=== PATIENT | male | born 1935 | race Caucasian/White ===

== ENCOUNTER → 2017-12-09 13:59 | Outpatient (CLI) | payer MEDICARE, OTHER, SELFPAY ==
[2017-12-09 15:53] LABS: Absolute Lymphocyte Count 1.24 X10^3/ul (0.83-4.51); Basophil# 0.02 X10^3/uL; Basophil% 0.4 % (0-1); Eosinophil# 0.08 X10^3/uL; Eosinophils% 1.6 % (0-5); Hematocrit 41.6 % (40-54); Hemoglobin 14.1 g/dl (13.0-16.5); Lymphocyte # 1.24 X10^3/ul (4.0); Lymphocyte % 24.8 % (19-41); Mean Corp Hgb Conc 33.9 g/gl (32-36); Mean Corpuscular Hgb 30.8 pg (27.0-32.0); Mean Corpuscular Volume 90.8 fL (80-94); Mean Platelet Vol. 10.5 fl (6.2-12.0); Monocyte# 0.65 X10^3/uL; Platelet Count 208 K/mm3 (150-450); RBC Distribution Width SD 42.8 fl (35.1-43.9); Red Blood Count 4.58 M/mm3 (4.6-6.2)
[2017-12-09 16:06] LABS: POSITIVE COUNT NO; POSITIVE DIFFERENTIAL NO; POSITIVE MORPHOLOGY NO
[2017-12-09 16:38] LABS: AST(SGOT) 18 U/L (15-37); Alanine Aminotransfer ALT/SGPT 28 U/L (16-61); Albumin, Serum 3.8 g/dL (3.2-5.0); Alkaline Phosphatase 68 U/L (45-117); Anion Gap 7 (5-15); BUN 20 mg/dL (7-18); BUN/Creat Ratio 15.6 RATIO (10-20); Bilirubin, Direct 0.14 mg/dL (0.00-0.30); Calcium,Total 8.7 mg/dL (8.5-10.1); Chloride 107 mmol/L (98-107); Cholesterol 123 mg/dL (200); Creatinine, Serum 1.28 mg/dL (0.70-1.30); EST Glomerular Filtration Rate 57 mL/min (>60); Est Glom Filt Rate - Afr Amer 69 mL/min (>60); Globulin 3.2 g/dL (2.2-4.2); Glucose 136 mg/dL (74-106); High Density Lipoprotein 40 mg/dL; Potassium 3.7 mmol/L (3.5-5.1); Sodium Level 139 mmol/L (136-145); Thyroid Stim Hormone (TSH) 1.31 uIU/mL (0.358-3.74); Triglycerides 142 mg/dL; Very Low Density Lipoprotein 28 mg/dL (5-40)
== END ==
PROVIDERS: Family Provider Family Medicine; PCP Family Medicine; Visit Provider Family Medicine
DX: I10 Essential (primary) hypertension (principal); E11.9 Type 2 diabetes mellitus without complications; E78.5 Hyperlipidemia, unspecified; E78.00 Pure hypercholesterolemia, unspecified
CPT/HCPCS: 36415; 80048; 80061; 80076; 84443; 85025

== ENCOUNTER → 2017-12-27 13:41 | Outpatient (CLI) | payer MEDICARE, OTHER, SELFPAY ==
--- NOTE | 2017-12-27 13:44 | CDU_ITS ---
Reason For Study: bruit Rt. Velocities/BP Lt. Velocities/BP Prox CCA 73.3/13.5 cm/sec. Prox CCA 108/17.0 cm/sec. Mid CCA 119/15.7 cm/sec. Mid CCA 126/18.1 cm/sec. Dist CCA 129/20.4 cm/sec. Dist CCA 112/18.1 cm/sec. Prox ICA 272/66.0 cm/sec. Prox ICA 93.5/23.6 cm/sec. Mid ICA 220/51.9 cm/sec. Mid ICA 118/25.1 cm/sec. Dist ICA 195/44.0 cm/sec. Dist ICA 121/26.4 cm/sec. Rt. ICA/CCA = 2.2. Lt. ICA/CCA = 1.0. Prox ECA 133/9.43 cm/sec. Prox ECA 166/13.8 cm/sec. Rt. Vert. 32.6/10.6 cm/sec. Lt. Vert. 53.9/12.3 cm/sec. Right Extracranial There is heterogeneous, irregular atherosclerotic plaque noted in the right common carotid artery. There is heterogeneous, irregular atherosclerotic plaque noted in the right internal carotid artery. There is heterogeneous, irregular atherosclerotic plaque noted in the right external carotid artery. Antegrade flow is noted in the right vertebral artery. Left Extracranial There is heterogeneous, irregular atherosclerotic plaque noted in the left common carotid artery. There is heterogeneous, irregular atherosclerotic plaque noted in the left internal carotid artery. There is heterogeneous, irregular atherosclerotic plaque noted in the left external carotid artery. Antegrade flow is noted in the left vertebral artery. Procedure Carotid Duplex 83901. The exam was diagnostic. Exam performed in department. Interpretation Summary Moderate (50-69%) stenosis right extracranial internal carotid. Mild (<50%) stenosis left extracranial internal carotid. Flow within the vertebral arteries is antegrade bilaterally. Ordering Physician: Doulgas Tamez Performed By: Brenton Gomez RVT
== END ==
PROVIDERS: Family Provider Family Medicine; PCP Family Medicine; Visit Provider Internal Medicine Cardiovascular Disease
DX: R09.89 Other specified symptoms and signs involving the circulatory and respiratory systems (principal)
CPT/HCPCS: 93880

== ENCOUNTER → 2018-01-30 07:39 | Outpatient (CLI) | payer MEDICARE, OTHER, SELFPAY ==
--- NOTE | 2018-01-30 07:40 | CT_ITS ---
STUDY: CTA NECK WITH CONTRAST REASON FOR EXAM: Male, 82 years old. History of carotid stenosis. RADIATION DOSAGE (If Supplied By Facility): CTDIvol = ( 51.08 ) mGy, DLP = ( 669.64 ) mGycm TECHNIQUE: CT angiography with multi-detector data acquisition was performed from the aortic arch to the skull base following intravenous administration of 100 ml of Isovue 370 contrast. MIP images were reconstructed from the axial data set. Post-processing of the angiographic images was performed, with multiplanar reformation and 3D reconstruction. Individualized dose optimization techniques were used for this CT. COMPARISON: None. FINDINGS: AORTIC ARCH: There is atherosclerotic calcific plaque formation of the aortic arch and great vessels arising from the aortic arch, without a hemodynamically significant stenosis. There is a normal origin of the brachiocephalic, left common carotid, and left subclavian arteries. Nonocclusive atherosclerotic plaque at the origin of the left common carotid artery. Atherosclerotic plaque at the origin the right brachiocephalic artery and left subclavian artery. RIGHT CAROTID ARTERIES: There is atherosclerotic plaque formation of the common carotid artery, but without a hemodynamically significant stenosis. Normal right common carotid bulb. There is severe atherosclerotic plaque formation of the origin of the right internal carotid artery with a near complete occlusion. Scattered plaques in the distal portion of the internal carotid artery. Normal origin of the right external carotid artery (ECA). LEFT CAROTID ARTERIES: There is atherosclerotic plaque formation of the common carotid artery, but without a hemodynamically significant stenosis. Normal left common carotid bulb. There is moderate atherosclerotic plaque formation of the origin of the left internal carotid artery with an estimated stenosis of 50-69% stenosis. Normal visualized cervical portion of the left internal carotid artery. Normal origin of the left external carotid artery (ECA). VERTEBRAL ARTERIES: Normal bilateral vertebral arteries. CT/CTA Neck W/WO Contrast IMPRESSION: Subtotal occlusion at the origin of the right internal carotid artery. 50-69% narrowing at the origin of the left internal carotid artery. Electronically Signed: Jayjay Camargo MD at 14:44 EDT Tel [phone], Service support ,
== END ==
PROVIDERS: Family Provider Family Medicine; PCP Family Medicine; Visit Provider Surgery
DX: I65.21 Occlusion and stenosis of right carotid artery (principal)
CPT/HCPCS: 70498; Q9967

== ENCOUNTER 2018-03-13 05:19 | Inpatient (IN) | payer MEDICARE, OTHER, SELFPAY ==
--- NOTE | 2018-03-08 12:26 | EKG12_ITS ---
Test Reason : PRE OP Blood Pressure : / mmHG Vent. Rate : 072 BPM Atrial Rate : 072 BPM P-R Int : 184 ms QRS Dur : 098 ms QT Int : 404 ms P-R-T Axes : 065 -03 102 degrees QTc Int : 442 ms Normal sinus rhythm Nonspecific T wave abnormality Abnormal ECG Confirmed by NICOLLE BOWDEN, CHAPITO ([id number]), publishing editor ANKIT RYAN ([id number]) on 03/09/2018 9:34:50 AM Referred By: Josh Reyes Confirmed By:CHAPITO VALVERDE MD
[2018-03-08 14:40] LABS: Hematocrit 41.7 % (40-54); Hemoglobin 14.6 g/dl (13.0-16.5); Mean Corpuscular Hgb 31.5 pg (27.0-32.0); Mean Corpuscular Volume 90.1 fL (80-94); Mean Platelet Vol. 10.3 fl (6.2-12.0); Platelet Count 224 K/mm3 (150-450); RBC Distribution Width CV 12.6 % (11.6-14.6); Red Blood Count 4.63 M/mm3 (4.6-6.2); White Blood Count 5.9 K/mm3 (4.4-11.0)
[2018-03-08 14:45] LABS: Scan Indicated on CBC? Y/N NO
[2018-03-08 15:00] LABS: Anion Gap 7 (5-15); BUN 22 mg/dL (7-18); BUN/Creat Ratio 15.1 RATIO (10-20); Calcium,Total 8.7 mg/dL (8.5-10.1); Chloride 105 mmol/L (98-107); Creatinine, Serum 1.46 mg/dL (0.70-1.30); EST Glomerular Filtration Rate 49 mL/min (>60); Est Glom Filt Rate - Afr Amer 60 mL/min (>60); Glucose 160 mg/dL (74-106); Potassium 3.9 mmol/L (3.5-5.1); Sodium Level 135 mmol/L (136-145)
[2018-03-08 15:05] LABS: Hemoglobin A1c 6.6 % (4.2-6.3)
[2018-03-13] VITALS (19 sets, daily range): BP systolic 105–140; BP diastolic 40–70; PULSE 55–80; RESP 14–18; TEMP 36.1–36.8; O2SAT 92–100; BMI 29.9
[2018-03-13 06:10] LABS: Bedside Glucose 134 mg/dL (70-110)
--- NOTE | 2018-03-13 07:14 | OP.PCM_ITS ---
Problem List (1) Stenosis of right carotid artery Status: Chronic Report of Operation Date of Procedure: 03/13/18 Pre-Operative Diagnosis: Severe stenosis right extracranial internal carotid Post-Operative Diagnosis: Same Surgery/Procedure Performed:: Left radial arterial line placement. Right carotid endarterectomy with bovine patch angioplasty Description of Surgical Findings:: At the bedside Cain test was performed demonstrating adequate ulnar flow on the left. The left wrist was gently extended. It was prepped with Betadine. 1 % lidocaine was used as local anesthetic. Ultrasound was used to identify the left radial artery. Percutaneous access was achieved with a 20-gauge Angiocath as well as a 20-gauge aero Angiocath. kit. Actually several attempts were required as Seldinger wire technique would not get the catheter to advance. Finally with slightly more proximal positioning I was able to get a 20-gauge Angiocath into position with good arterial flow. It was secured to skin with 3- 0 silk OpSite dressing Serjio wrap applied. There is a good waveform obtained. The patient tolerated the procedure well. His hand was viable at the completion. No apparent complication. He was subsequently taken to the operating room for planned definitive surgery. The patient was taken to the operating room. He was placed supine on the table. He underwent general endotracheal intubation anesthesia. Ancef 2 g given intravenous preoperatively. The right neck was sterilely prepped and draped. An oblique incision was made along the anterior border of the sternum mastoid. The platysma was incised. Sharp dissection carried down through and the sternocleidomastoid was reflected laterally. The crossing branches of the facial vein were secured with a 0 Vicryl ties and hemoclips. Dissection was performed in the carotid bulb and proximal common carotid was identified. Dacron tapes and a Gya tie fashion was placed. Dissection was performed cephalad. The ansa cervicalis had to be sacrificed with hemoclips and transected to allow for mobilization of the low-lying hypoglossal nerve. The hypoglossal nerve was carefully elevated. Then sharp and blunt dissection institute to on the internal carotid. It was known the disease on the internal carotid extended for approximately 3-1/2 cm cephalad. I had to get good cephalad exposure. A Dacron tape and Pino tourniquet was placed. Circumferential control was obtained of the external carotid and a vessel loop was placed. The superior thyroid was secured with a Gay tie of Vicryl. The patient received 9000 units of heparin. It is of note that 45 minutes into the procedure he received received an additional 1000 units of heparin. After adequate circling time peripheral vascular clamps are placed on the internal carotid common carotid and external carotid. An 11 blade was used to make an arteriotomy. This was extended with Gay scissors. There was very high-grade grumous near completely obstructing plaque of the proximal internal carotid. The vessel was irrigated and then a #10 USCI style shunt was placed cephalad and proximally. Time to place the shunt was 3 minutes and 29 seconds. The shunt was placed cephalad and proximally. It is of note that because of the very high dissection and amount of disease I could not secure the Pino tourniquet. We elevated the Dacron telemetry to help slow backflow. The shunt was secured proximally with a Dacron tape and Gay tie. The plaque was sharply transected proximally and then very nice feathering of the internal carotid was achieved and an inversion endarterectomy of the external carotid was achieved. Careful fine forceps dissection was used to remove additional debris. At this point it became very apparent to me that I was not to be able to see the apex of my dissection clearly with a shunt in place. I used a 0.8 x 8 cm bovine Vascu-Guard patch. I shaped to form. I remove the shunt in Place Serna clamps on the common carotid and internal carotid. This allowed me to further remove some debris at the internal carotid. Having achieved this I performed a patch angioplasty with a running 6-0 Prolene. Prior to completion the vessel was copiously irrigated then it was allowed to backflow from the internal carotid and external carotid antegrade flow from the common carotid. The patch angioplasty was completed and initial flow was instituted from the external carotid common carotid find the internal carotid. Time where there had been complete artery occlusion was 31 minutes and 42 seconds. A single repair suture of 7-0 Prolene was placed. Good hemostasis was achieved. The patient received 20 mg of protamine his reversal. I temporarily placed Surgicel to further assist with hemostasis which was achieved. The vessel was inspected and had excellent positioning and a pulse. The wound was closed in layers with a deep layer of a running 3-0 Vicryl and then superficial layer running septic or 5-0 Vicryl. The christiano-incisional areas anesthetized with 10 cc of 0.5% Marcaine. Steri-Strips Telfa tape dressings were applied. Sponge and instrument and needle counts were reported to the surgeon to be correct. 2300 cc blood loss. Specimens include plaque. Drains none. The patient awoke and was taken to the recovery area in satisfactory condition. Gross neurologic function intact. Josh Reyes M.D., F.A.C.S.
--- NOTE | 2018-03-13 07:15 | PLAQ_PTH ---
PATIENT: ROBER CHAVEZ LOC: [facility] U#:[id number] AGE/SX: 82/M ROOM: ND301 RE03/13/[address]: Dr. Josh Reyes MD : [id number] BED: 1 DIS: 03/14/2018 SPEC #: [id number] RECD: 03/13/18 10:55 STATUS: EREN REQ #: [id number] LONG: 03/13/18 07:[address]: Josh Reyes DEPT: SURGICAL PATHOLOGY RECD BY: Paty Mendoza ENTERED: 03/13/18 11:17 SP TYPE: PLAQUE OTHR DR: MD Alvaro Gaitan Tissues: PLAQUE Procedures: Decalcification bone/plaque Surgery Specimen Level III HEADER OPERATION: Right carotid endarterectomy with patch angioplasty PRE-OP DIAGNOSIS: Stenosis of right carotid artery TISSUE SUBMITTED: Right carotid artery plaque MICROSCOPIC DIAGNOSIS Right carotid artery plaque, endarterectomy: Calcified atheromatous plaque consistent with severe stenosis. AM:giselle 03/16/18 GROSS DESCRIPTION Received in fixative is one container labeled with the patient's name and designated right carotid artery plaque. The specimen consists of a Y-shaped fragment of artery with atheromatous plaque measuring 4 x 1.5 x 1 cm. The specimen is serially sectioned and totally submitted in two cassettes after decalcification. / AM:giselle 03/13/18 TC:5 CPT: 09571, 18227
[2018-03-13] MEDS: Cefazolin 2 GM in 0.9% Normal Saline 100 ML IV (07:23)
--- NOTE | 2018-03-13 07:33 | PCM.DC.GS ---
Discharge Diet: Light diet - advance as tolerated - if you have questions about your diet instructions, please talk to you doctor. Discharge Activity: May Not Drive - for 1 week or while taking narcotic pain medicine. May shower in (days): 3 - Shower on Lifting Restrictions: 10 pounds Call your doctor if your incision/area has: Continuous Slow Oozing, Sudden Increased Bleeding, Increased Pain/ Swelling, Increased Redness, Foul Smelling Discharge Call your doctor if you observe: Fever of 101 or Higher Suture Line Care: Avoid Pulling/Pushing, Avoid Pinching/Bending Additional Dressing/Incision Instructions:: You may cover the incision with gauze and tape as needed to protect from clothing. Leave the Steri-Strips in place for 1 week. Allergies/Adverse Reactions: Allergies No Known Allergies Allergy (Verified 03/06/18 12:47) Medications to take at Discharge aspirin 81 mg tablet,delayed release 81 mg PO QDAY tab 11/07/17 glimepiride 1 mg tablet 1 mg PO QDAY tab 11/07/17 nitroglycerin 0.4 mg sublingual tablet 0.4 mg SUBLINGUAL Q5-15M PRN 11/07/17 Atorvastatin Calcium [Lipitor] 40 mg PO QDAY 03/06/18 Clopidogrel Bisulfate [Clopidogrel] 75 mg PO QDAY 03/06/18 Isosorbide Mononitrate [Isosorbide Mononitrate ER] 60 mg PO QDAY 03/06/18 Metoprolol Succinate [Toprol Xl] 50 mg PO QDAY 03/06/18 Ramipril 10 mg PO BID 03/06/18 Triamterene 37.5MG/Hctz 25MG [Maxzide 37.5 mg-25 mg Tablet] 1 tab PO QDAY 03/06/18 Hydrocodone Bitart/Apap 5-325 [[place] 5MG-325MG] 1 tablet PO Q6H PRN PRN 2 Days #5 tablet 03/13/18 The following prescriptions were given: Hydrocodone Bitart/Apap 5-325 [[place] 5MG-325MG] 1 tablet PO Q6H PRN PRN 2 Days #5 tablet PRN Reason: Pain Primary Care Physician: Alvaro August [Primary Care Provider] - Test Results: Test results from this visit will be discussed in further detail at your follow-up appointment, if applicable. Please Follow Up With: Josh Reyes MD - [phone] When: Call to make an appointment to be seen in about 10 days.
[2018-03-13] MEDS: Heparin Injection (Vial) 5,000 UNIT/ML VIAL 5000 UNIT (09:00)
[2018-03-13] MEDS: Bupivacaine Mpf 0.5% 30 ML VIAL (09:53)
[2018-03-13 11:10] LABS: Bedside Glucose 173 mg/dL (70-110)
[2018-03-13] MEDS: Acetaminophen 325 MG Tablet PO (12:57)
[2018-03-13] MEDS: HYDROcodone Bitartrate/Apap 5/325 Tablet PO (14:40)
[2018-03-13] MEDS: Ondansetron 4 MG/2 ML Vial IV (16:15)
[2018-03-13] MEDS: Cefazolin 1 GM/50 ML BAG IV ×2 (16:24→23:21)
--- NOTE | 2018-03-13 16:42 | CASEMGMT ---
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 Charge Nurse Fahad states that pt's has dementia and is needing assistance with going to the bathroom at [facility]. SW in to speak with pt. Pt's Skye present. SW introduced self and role at [facility]. Pt is alert and orientated x4. Pt states that he lives in a two story home with a one story set up. Pt states that there are three steps to enter the home and pt was previously independent with steps. Pt states that he was previously independent with ADLS. 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 Pt states that he and his are able to take care of each other. Pt states that he also has other family and friends that are able to help him and his . Pt states that his cousin Arnaldo and Myrtle Mendoza dropped off the pt and his to [facility] and they will be transporting pt home at discharge. Pt provided number at [phone]. Pt confirms that his will be staying with him. SW informed pt and the that his is able to stay with him but that the has to be able to completed independent ADLs including going to the bathroom and getting food without assistance from staff. Pt and states understanding. Pt denied DME and denied needing DME at home at discharge. Pt denied HHC or SNF at this time. SW placed a call to [facility] and left them a message informing them to give this worker a call back in regards to pt. SW provided direct number and also provided [facility] number. Plan: Pt to return home at discharge. EFREM and RN CM to follow along to assist with discharge planning. Iza Mattson CHRONOMETER ASSEMBLER, PARKING WORKER
[2018-03-13] MEDS: proMETHazine 25 MG/ML Syringe 6.25 MG IV (21:29)
[2018-03-13] MEDS: 0.9% NaCl Peripheral Flush Adult/Peds IV (21:29)
[2018-03-13] MEDS: Ramipril 10 MG Capsule PO (21:31)
[2018-03-13] MEDS: Atorvastatin Calcium 40 MG Tablet PO (21:31)
[2018-03-14 02:10] VITALS: BP 107/50; PULSE 59; RESP 18; TEMP 36.7; O2SAT 96
--- NOTE | 2018-03-14 05:48 | PCM.PN.SRG ---
Subjective: Nausea has resolved Hasn't really been OOB to chair at all since surgery Urinary retention last pm treated with st cath - Physical Exam General: Alert, Oriented x3, Cooperative, No apparent distress Lungs: Clear to auscultation Neurological: Cranial nerves II-XII grossly intact Vital Signs Temp Pulse Resp BP Pulse Ox 98.1 F 59 L 18 107/50 L 96 03/14/18 02:10 03/14/18 02:10 03/14/18 02:10 03/14/18 02:10 03/14/18 02:10 Oxygen Flow Rate (L/min) 2 Oxygen Delivery Method Room Air Weight: 211 lb 6.773 oz Body Mass Index (BMI) 29.9 Intake and Output for Last 24 Hours 03/12/18 03/13/18 03/14/18 23:59 23:59 23:59 Intake Total 3439 / 3439 Output Total 250 / 250 725 / 725 Balance 3189 / 3189 -725 / -725 POC Glucose 03/13/18 03/13/18 10:58 05:58 POC Glucose 173 H 134 H Medical Necessity - Tobacco Use Smoking Status: Never smoker Tobacco Use: Non-smoker Assessment/Plan Pt needs to mobilize and void Right neck is clean and supple, neuro intact Plan discharge this a.m. if able to void
[2018-03-14] MEDS: Tamsulosin HCl 0.4 MG Capsule PO (06:48)
[2018-03-14 08:46] VITALS: BP 116/53; PULSE 63; RESP 18; TEMP 37; O2SAT 95
[2018-03-14] MEDS: Aspirin E.C. 81 MG Tablet PO (08:53)
[2018-03-14] MEDS: Glimepiride 1 MG Tablet PO (08:53)
[2018-03-14 09:25] LABS: Bedside Glucose 146 mg/dL (70-110)
[2018-03-14 10:58] VITALS: BP 114/56; PULSE 68; RESP 18; TEMP 36.7; O2SAT 96
[2018-03-14 11:00] VITALS: BP 114/56; PULSE 68
[2018-03-14] MEDS: Clopidogrel Bisulfate 75 MG Tablet PO (11:00)
[2018-03-14] MEDS: Metoprolol(XL)Succ 50 MG Tablet PO (11:00)
[2018-03-14] MEDS: Triamterene 37.5MG/Hctz 25MG Capsule 1 CAP PO (11:00)
[2018-03-14] MEDS: Isosorbide Mononitrate 60 MG Tablet PO (11:01)
[2018-03-14] MEDS: Ramipril 10 MG Capsule PO (11:01)
--- NOTE | 2018-03-14 11:42 | CASEMGMT ---
Social Work Note Pt's nephew Arnaldo requesting to speak to this worker. Arnaldo's Myrtle present and family friend Georgia present. Myrtle Mcintosh, and Georgia had concerns about pt returning home as he is caregiver for pt's Skye and they feel pt will be unable to take care of pt at this time. EFREM informed Myrtle Mcintosh and Georgia that this SW met with pt yesterday and pt had stated that he wishes to return home at discharge with his . SW explained that pt is alert and orientated x4 and is able to make decisions at this time and he has decided to return home at discharge. Myrtle Mcintosh and Arlene states that pt's Skye has dementia and is requiring extra assistance at home. SW provided pt's family with options to care for pt's including hiring private aides, respite care, terminal supervisor care at nursing facility or Assisted Living. Georgia asked this worker if it would be possibly for pt to go to SNF and have the get a room with pt at SNF. EFREM explained that pt is being discharged today, pt doesn't need any skilled services and pt won't have three midnight stay for Medicare so it would be private pay for pt and pt's to go to SNF. Pt's family states understanding. Db Mcintosh states that between the three of them they are willing to assist pt and pt's at this time with extra help. Arnaldo asked this worker about HCPOA. EFREM informed Arnaldo that this worker is unsure if pt has filled out document and if it has been scanned into the [facility] system but that this worker can check when this worker gets back to the computer. EFREM informed Arnaldo that in regards to pt's Skye if she has dementia and is unable to make decisions then the responsibility of making decisions would be her as he is next of kin. Arnaldo states that pt refuses to admit that he needs extra help taking care of his . SW informed Arnaldo that pt is alert and orientated and is able to make decisions. SW encouraged pt's family to talk to pt's Skye PCP about their concerns. SW encouraged pt's family to talk with pt about getting extra help for his and to have a family meeting to discuss their issues and concerns. Arnaldo had mentioned HHC and this SW explained that there is nothing to skill pt on for HHC and if HHC would be set up it would only be for pt and not for his . Arnaldo states understanding. SW explained that unfortunately pt's Skye is not admitted into hospital and this SW can only provide resources for her and can't set up care for her as she isn't a patient. SW explained that it would be pt and family's responsibility to set up care for pt's . Pt's family states understanding. SW provided list of private duty aides and Assisted Living Facilities. SW provided pt with Advanced Directives document and informed him that his family had mentioned him filling it out. Pt was leaving [facility] at this time that this worker provide him with document and this SW unable to complete Advanced Directives at this time with pt. Plan: Pt discharged home today with support from his family Iza Mattson SUPERVISOR [employer], DIRECTOR OF PROVIDER RELATIONS
== END 2018-03-14 11:33 | disposition home or self-care (01) | DRG 39 ==
PROVIDERS: Admitting Provider Surgery; Family Provider Family Medicine; PCP Family Medicine; Visit Provider Surgery
PROC: 03CM0ZZ Extirpation of Matter from Right External Carotid Artery, Open Approach (ICD-10-PCS; CPT 35301; principal; 2018-03-13 06:55)
DX: I65.21 Occlusion and stenosis of right carotid artery (principal); R33.9 Retention of urine, unspecified; I25.10 Atherosclerotic heart disease of native coronary artery without angina pectoris; E11.9 Type 2 diabetes mellitus without complications; I10 Essential (primary) hypertension; E78.5 Hyperlipidemia, unspecified; Z79.84 Long term (current) use of oral hypoglycemic drugs; Z79.02 Long term (current) use of antithrombotics/antiplatelets; Z79.82 Long term (current) use of aspirin; Z79.899 Other long term (current) drug therapy; Z87.19 Personal history of other diseases of the digestive system; Z85.048 Personal history of other malignant neoplasm of rectum, rectosigmoid junction, and anus; Z95.5 Presence of coronary angioplasty implant and graft
CPT/HCPCS: 36415; 80048; 82962; 83036; 85027; 88304; 88311; 93005; J7040; J7120; A4216; J2405

== ENCOUNTER → 2018-04-19 09:43 | Outpatient (CLI) | payer MEDICARE, OTHER, SELFPAY ==
--- NOTE | 2018-04-19 09:46 | CDU_ITS ---
Reason For Study: STENOSIS Rt. Velocities/BP Prox CCA 76.2/14.1 cm/sec. Mid CCA 128/18.1 cm/sec. Dist CCA 119/20.6 cm/sec. Prox ICA 60.4/12.9 cm/sec. Mid ICA 87.9/29.3 cm/sec. Dist ICA 82.1/21.7 cm/sec. Rt. ICA/CCA = 0.69. Prox ECA 346 cm/sec. Rt. Vert. 29.7/11 cm/sec. Right Extracranial There is heterogeneous, irregular atherosclerotic plaque noted in the right common carotid artery. There is no significant atherosclerotic plaque noted in the right internal carotid artery. There is homogeneous, irregular atherosclerotic plaque noted in the right external carotid artery. Antegrade flow is noted in the right vertebral artery. Procedure Carotid Duplex [id number]. Exam performed in department. Interpretation Summary Post-operative changes of the right carotid bulb and proximal internal carotid with <50% stenosis Severe stenosis right external carotid Mild disease right common carotid Patent and antegrade right vertebral. Notable improvement in the right internal carotid since the previous exam of 12/27/17. Ordering Physician: Josh Reyes Referring Physician: Alvaro August Performed By: Manisha ADAME RVT, Carrie and Student
== END ==
PROVIDERS: Family Provider Family Medicine; PCP Family Medicine; Visit Provider Surgery
DX: I65.21 Occlusion and stenosis of right carotid artery (principal)
CPT/HCPCS: 93880

== ENCOUNTER → 2018-05-01 14:16 | Outpatient (CLI) | payer MEDICARE, OTHER, SELFPAY ==
[2018-05-01 15:29] LABS: Absolute Lymphocyte Count 1.27 X10^3/ul (0.83-4.51); Absolute Neutrophil Count 3.7 X10^3/uL (2.0-7.7); Basophil# 0.01 X10^3/uL; Basophil% 0.2 % (0-1); Eosinophils% 1.7 % (0-5); Hemoglobin 11.7 g/dl (13.0-16.5); Lymphocyte # 1.27 X10^3/ul (4.0); Mean Corp Hgb Conc 32.5 g/gl (32-36); Mean Corpuscular Volume 92.3 fL (80-94); Mean Platelet Vol. 9.7 fl (6.2-12.0); Monocyte# 0.65 X10^3/uL; Monocyte% 11.3 % (0-10); Neutrophil # 3.73 X10^3/uL (2.7-7.7); Neutrophil % 64.8 % (47-70); Platelet Count 232 K/mm3 (150-450); RBC Distribution Width SD 46.4 fl (35.1-43.9); White Blood Count 5.8 K/mm3 (4.4-11.0)
[2018-05-01 15:45] LABS: POSITIVE COUNT NO; POSITIVE DIFFERENTIAL NO; POSITIVE MORPHOLOGY NO
[2018-05-01 15:48] LABS: Anion Gap 9 (5-15); BUN 31 mg/dL (7-18); BUN/Creat Ratio 16.6 RATIO (10-20); Chloride 106 mmol/L (98-107); Creatinine, Serum 1.87 mg/dL (0.70-1.30); EST Glomerular Filtration Rate 37 mL/min (>60); Est Glom Filt Rate - Afr Amer 45 mL/min (>60); Glucose 173 mg/dL (74-106); Potassium 4.2 mmol/L (3.5-5.1); Sodium Level 141 mmol/L (136-145); T4 Free Direct 0.89 ng/dL (0.76-1.46)
== END ==
PROVIDERS: Family Provider Family Medicine; PCP Family Medicine; Visit Provider Family Medicine
DX: E11.9 Type 2 diabetes mellitus without complications (principal); I10 Essential (primary) hypertension; E78.00 Pure hypercholesterolemia, unspecified
CPT/HCPCS: 36415; 80048; 84439; 84443; 85025

== ENCOUNTER → 2018-05-03 10:34 | Outpatient (CLI) | payer MEDICARE, OTHER, SELFPAY | PROVIDERS: Family Provider Family Medicine; PCP Family Medicine; Visit Provider Family Medicine | DX: N18.9 Chronic kidney disease, unspecified (principal); D64.9 Anemia, unspecified ==

== ENCOUNTER → 2018-09-11 10:05 | Outpatient (CLI) | payer MEDICARE, OTHER, SELFPAY ==
[2018-09-11 13:14] LABS: AST(SGOT) 20 U/L (15-37); Alanine Aminotransfer ALT/SGPT 21 U/L (16-61); Albumin, Serum 3.8 g/dL (3.2-5.0); Alkaline Phosphatase 63 U/L (45-117); Bilirubin, Direct 0.19 mg/dL (0.00-0.30); Cholesterol 104 mg/dL (200); Globulin 2.5 g/dL (2.2-4.2); High Density Lipoprotein 36 mg/dL; Protein, Total 6.3 g/dL (6.4-8.2); Triglycerides 104 mg/dL; Very Low Density Lipoprotein 21 mg/dL (5-40)
== END ==
PROVIDERS: Family Provider Family Medicine; PCP Family Medicine; Visit Provider Internal Medicine Cardiovascular Disease
DX: E78.5 Hyperlipidemia, unspecified (principal)
CPT/HCPCS: 36415; 80061; 80076

== ENCOUNTER → 2019-01-05 16:19 | Outpatient (CLI) | payer MEDICARE, OTHER, SELFPAY ==
[2018-09-13 14:34] VITALS: BMI 30.5
[2019-01-05 17:36] LABS: Absolute Lymphocyte Count 1.23 X10^3/ul (0.83-4.51); Absolute Neutrophil Count 3.2 X10^3/uL (2.0-7.7); Basophil# 0.01 X10^3/uL; Basophil% 0.2 % (0-1); Eosinophil# 0.11 X10^3/uL; Eosinophils% 2.1 % (0-5); Hematocrit 41.4 % (40-54); Hemoglobin 14.6 g/dl (13.0-16.5); Lymphocyte # 1.23 X10^3/ul (4.0); Lymphocyte % 23.1 % (19-41); Mean Corp Hgb Conc 35.3 g/gl (32-36); Mean Corpuscular Volume 87.9 fL (80-94); Mean Platelet Vol. 10.4 fl (6.2-12.0); Monocyte# 0.77 X10^3/uL; Monocyte% 14.4 % (0-10); Platelet Count 222 K/mm3 (150-450); RBC Distribution Width CV 12.2 % (11.6-14.6); RBC Distribution Width SD 38.6 fl (35.1-43.9); Red Blood Count 4.71 M/mm3 (4.6-6.2); White Blood Count 5.3 K/mm3 (4.4-11.0)
[2019-01-05 17:37] LABS: POSITIVE COUNT NO; POSITIVE DIFFERENTIAL NO; POSITIVE MORPHOLOGY NO
[2019-01-05 17:57] LABS: Hemoglobin A1c 7.1 % (4.2-6.3)
[2019-01-05 18:12] LABS: ALB/GLOB Ratio 1.2 RATIO (0.9-2.4); AST(SGOT) 17 U/L (15-37); Alanine Aminotransfer ALT/SGPT 26 U/L (16-61); Albumin, Serum 3.8 g/dL (3.2-5.0); Alkaline Phosphatase 92 U/L (45-117); Anion Gap 9 (5-15); BUN 26 mg/dL (7-18); BUN/Creat Ratio 17.1 RATIO (10-20); Calcium,Total 8.5 mg/dL (8.5-10.1); Chloride 105 mmol/L (98-107); Creatinine, Serum 1.52 mg/dL (0.70-1.30); EST Glomerular Filtration Rate 47 mL/min (>60); Est Glom Filt Rate - Afr Amer 57 mL/min (>60); Ferritin 104 ng/mL (26-388); Globulin 3.2 g/dL (2.2-4.2); Glucose 95 mg/dL (74-106); Iron 85 ug/dL (65-175); Potassium 3.6 mmol/L (3.5-5.1); Sodium Level 138 mmol/L (136-145)
== END ==
PROVIDERS: Family Provider Family Medicine; PCP Family Medicine; Visit Provider Family Medicine
DX: E11.22 Type 2 diabetes mellitus with diabetic chronic kidney disease (principal); I12.9 Hypertensive chronic kidney disease with stage 1 through stage 4 chronic kidney disease, or unspecified chronic kidney disease; N18.9 Chronic kidney disease, unspecified; D64.9 Anemia, unspecified
CPT/HCPCS: 36415; 80053; 82728; 83036; 83540; 85025

== ENCOUNTER → 2019-04-10 09:45 | Outpatient (CLI) | payer MEDICARE, OTHER, SELFPAY ==
[2018-09-13 14:34] VITALS: BMI 30.5
--- NOTE | 2019-04-10 09:47 | CDU_ITS ---
Reason For Study: Carotid stenosis Rt. Velocities/BP Lt. Velocities/BP Prox CCA 73.4/5.6 cm/sec. Prox CCA 106/7.7 cm/sec. Mid CCA 104.7/9.5 cm/sec. Mid CCA 104.8/7.7 cm/sec. Dist CCA 112/7.9 cm/sec. Dist CCA 77.7/9 cm/sec. Prox ICA 59.3/11.4 cm/sec. Prox ICA 101.6/16 cm/sec. Mid ICA 88.8/16.3 cm/sec. Mid ICA 134.5/22.6 cm/sec. Dist ICA 91.2/18.8 cm/sec. Dist ICA 82.7/15.2 cm/sec. Rt. ICA/CCA = 0.9. Lt. ICA/CCA = 1.3. Prox ECA 177.7 cm/sec. Prox ECA 143.3 cm/sec. Rt. Vert. 36/6.4 cm/sec. Lt. Vert. 44.7 cm/sec. Right Extracranial There is heterogeneous, irregular atherosclerotic plaque noted in the right common carotid artery. There is intimal thickening but no significant atherosclerotic plaque noted in the right internal carotid artery. There is homogeneous, irregular atherosclerotic plaque noted in the right external carotid artery. Antegrade flow is noted in the right vertebral artery. Left Extracranial There is heterogeneous, irregular atherosclerotic plaque noted in the left common carotid artery. There is heterogeneous, irregular atherosclerotic plaque noted in the left internal carotid artery. There is heterogeneous, irregular atherosclerotic plaque noted in the left external carotid artery. Antegrade flow is noted in the left vertebral artery. Procedure Carotid Duplex [id number]. Exam performed in department. Interpretation Summary Irregular plague right common carotid artery Intimal thickening right internal carotid with <50% stenosis and evidence of previous carotid endarterectomy <50% stenosis right external carotid Irregular plague left common carotid Extensive irregular plague proximal left internal carotid with 50-69% stenosis. <50% stenosis left external carotid Patent and antegrade vertebrals bilaterally No change in the right internal carotid since 04/19/18. Mild progression of disease left internal carotid from <50% stenosis on 12/27/17 Ordering Physician: Josh Reyes Referring Physician: Alvaro August Performed By: Iza Viera RVT
== END ==
PROVIDERS: Family Provider Family Medicine; PCP Family Medicine; Referring Provider Surgery; Visit Provider Surgery
DX: I65.21 Occlusion and stenosis of right carotid artery (principal)
CPT/HCPCS: 93880

== ENCOUNTER → 2019-08-13 09:59 | Outpatient (CLI) | payer MEDICARE, OTHER, SELFPAY ==
[2019-04-27 05:57] VITALS: BMI 30.5
[2019-08-13 12:24] LABS: Absolute Lymphocyte Count 1.73 X10^3/uL (0.83-4.51); Basophil# 0.03 X10^3/uL; Basophil% 0.5 % (0-1); Eosinophil# 0.19 X10^3/uL; Eosinophils% 2.9 % (0-5); Hematocrit 50.8 % (40-54); Hemoglobin 17.2 g/dL (13.0-16.5); Lymphocyte # 1.73 X10^3/ul (4.0); Mean Corp Hgb Conc 33.9 g/dL (32-36); Mean Corpuscular Hgb 30.2 pg (27.0-32.0); Mean Corpuscular Volume 89.1 fL (80-94); Monocyte# 0.71 X10^3/uL; Monocyte% 10.7 % (0-10); NRBC Flagged by Analyzer 0 % (0-5); Neutrophil # 3.99 X10^3/uL (2.7-7.7); Neutrophil % 59.7 % (47-70); Platelet Count 206 K/mm3 (150-450); RBC Distribution Width CV 13.2 % (11.6-14.6); RBC Distribution Width SD 42.5 fl (35.1-43.9); White Blood Count 6.7 K/mm3 (4.4-11.0)
[2019-08-13 12:47] LABS: AST(SGOT) 32 U/L (15-37); Alanine Aminotransfer ALT/SGPT 48 U/L (16-61); Albumin, Serum 3.7 g/dL (3.2-5.0); Alkaline Phosphatase 98 U/L (45-117); Anion Gap 6 (5-15); BUN 17 mg/dL (7-18); BUN/Creat Ratio 12.7 RATIO (10-20); Bilirubin, Direct 0.13 mg/dL (0.00-0.30); Calcium,Total 9.2 mg/dL (8.5-10.1); Chloride 103 mmol/L (98-107); Cholesterol 137 mg/dL (200); Creatinine, Serum 1.34 mg/dL (0.70-1.30); EST Glomerular Filtration Rate 54 mL/min (>60); Est Glom Filt Rate - Afr Amer 66 mL/min (>60); Globulin 3.2 g/dL (2.2-4.2); Glucose 214 mg/dL (74-106); High Density Lipoprotein 35 mg/dL; Potassium 3.4 mmol/L (3.5-5.1); Protein, Total 6.9 g/dL (6.4-8.2); Sodium Level 137 mmol/L (136-145); Triglycerides 226 mg/dL; Very Low Density Lipoprotein 45 mg/dL (5-40)
== END ==
PROVIDERS: Family Provider Family Medicine; PCP Family Medicine; Visit Provider Physician Assistant Medical
DX: I10 Essential (primary) hypertension (principal); E78.5 Hyperlipidemia, unspecified
CPT/HCPCS: 36415; 80048; 80061; 80076; 85025

== ENCOUNTER → 2020-03-24 | Outpatient (CLI) | payer MEDICARE, OTHER, SELFPAY ==
[2019-09-28 13:12] VITALS: BMI 32.0
[2020-03-24 12:12] LABS: Absolute Lymphocyte Count 1.77 X10^3/uL (0.83-4.51); Absolute Neutrophil Count 3.4 X10^3/uL (2.0-7.7); Basophil# 0.02 X10^3/uL; Basophil% 0.3 % (0-1); Eosinophils% 1.7 % (0-5); Lymphocyte # 1.77 X10^3/ul (4.0); Lymphocyte % 29.3 % (19-41); Mean Corpuscular Hgb 30.9 pg (27.0-32.0); Mean Corpuscular Volume 90.7 fL (80-94); Mean Platelet Vol. 10.4 fl (6.2-12.0); Monocyte# 0.74 X10^3/uL; Monocyte% 12.2 % (0-10); NRBC Flagged by Analyzer 0 % (0-5); Neutrophil # 3.41 X10^3/uL (2.7-7.7); Neutrophil % 56.3 % (47-70); Platelet Count 231 K/mm3 (150-450); RBC Distribution Width CV 13.6 % (11.6-14.6); RBC Distribution Width SD 45.5 fl (35.1-43.9); Red Blood Count 5.18 M/mm3 (4.6-6.2); White Blood Count 6.1 K/mm3 (4.4-11.0)
[2020-03-24 12:33] LABS: ALB/GLOB Ratio 1.1 RATIO (0.9-2.4); AST(SGOT) 21 U/L (15-37); Alanine Aminotransfer ALT/SGPT 33 U/L (16-61); Albumin, Serum 3.8 g/dL (3.2-5.0); Alkaline Phosphatase 98 U/L (45-117); Anion Gap 11 (5-15); BUN 25 mg/dL (7-18); BUN/Creat Ratio 15.6 RATIO (10-20); Calcium,Total 8.7 mg/dL (8.5-10.1); Chloride 101 mmol/L (98-107); EST Glomerular Filtration Rate 44 mL/min (>60); Est Glom Filt Rate - Afr Amer 53 mL/min (>60); Globulin 3.4 g/dL (2.2-4.2); Glucose 173 mg/dL (74-106); Potassium 3.3 mmol/L (3.5-5.1); Protein, Total 7.2 g/dL (6.4-8.2); Sodium Level 136 mmol/L (136-145); Thyroid Stim Hormone (TSH) 2.48 uIU/mL (0.358-3.74)
[2020-03-24 12:34] LABS: AST(SGOT) 19 U/L (15-37); Alanine Aminotransfer ALT/SGPT 31 U/L (16-61); Albumin, Serum 3.7 g/dL (3.2-5.0); Alkaline Phosphatase 98 U/L (45-117); Bilirubin, Direct 0.18 mg/dL (0.00-0.30); Cholesterol 127 mg/dL (200); Globulin 3.5 g/dL (2.2-4.2); High Density Lipoprotein 32 mg/dL; Protein, Total 7.2 g/dL (6.4-8.2); Triglycerides 185 mg/dL; Very Low Density Lipoprotein 37 mg/dL (5-40)
== END | disposition home or self-care (01) ==
LOC: BFHLAB 09:45
PROVIDERS: Physician Assistant Medical; PCP Family Medicine; Visit Provider Family Medicine
DX: E78.5 Hyperlipidemia, unspecified (principal); I10 Essential (primary) hypertension; E11.65 Type 2 diabetes mellitus with hyperglycemia; I25.10 Atherosclerotic heart disease of native coronary artery without angina pectoris
CPT/HCPCS: 36415; 80053; 80061; 80076; 84443; 85025

== ENCOUNTER → 2020-04-25 09:32 | Outpatient (CLI) | payer MEDICARE, SELFPAY ==
[2019-09-28 13:12] VITALS: BMI 32.0
[2020-04-04 07:40] VITALS: BMI 31.4
--- NOTE | 2020-04-25 09:37 | CDU_ITS ---
Reason For Study: Carotid Stenosis Rt. Velocities/BP Lt. Velocities/BP Prox CCA 55/11 cm/sec. Prox CCA 83/10 cm/sec. Mid CCA 72/13 cm/sec. Mid CCA 91/14 cm/sec. Dist CCA 103/14 cm/sec. Dist CCA 64/12 cm/sec. Prox ICA 64/11 cm/sec. Prox ICA 94/12 cm/sec. Mid ICA 71/19 cm/sec. Mid ICA 103/17 cm/sec. Dist ICA 70/16 cm/sec. Dist ICA 127/19 cm/sec. Rt. ICA/CCA = 1.0. Lt. ICA/CCA = 1.4. Prox ECA 193/18 cm/sec. Prox ECA 130 cm/sec. Rt. Vert. 23/6 cm/sec. Lt. Vert. 43/8 cm/sec. Right Extracranial There is heterogeneous, irregular atherosclerotic plaque noted in the right common carotid artery. There is intimal thickening but no significant atherosclerotic plaque noted in the right internal carotid artery. There is homogeneous, irregular atherosclerotic plaque noted in the right external carotid artery. Antegrade flow is noted in the right vertebral artery. Pre-steal waveform noted Rt Vert A. Left Extracranial There is heterogeneous, irregular atherosclerotic plaque noted in the left common carotid artery. There is heterogeneous, irregular atherosclerotic plaque noted in the left internal carotid artery. There is heterogeneous, smooth atherosclerotic plaque noted in the left external carotid artery. Antegrade flow is noted in the left vertebral artery. Procedure Carotid Duplex 01868. Exam performed in department. Interpretation Summary Irregular plague right common carotid with post operative changes right carotid bulb and proximal internal carotid with <50% stenosis right internal carotid <50% stenosis right external carotid Irregular plague left common carotid and proximal left internal and external carotids 50-69% stenosis left internal carotid <50% stenosis left external carotid Patent, antegrade vertebrals bilaterally No change from 04/10/19 Ordering Physician: Josh Reyes Referring Physician: Alvaro August Performed By: Marni Hewitt, DEEP, RVT
== END ==
PROVIDERS: PCP Family Medicine; Referring Provider Surgery; Visit Provider Surgery
DX: I65.23 Occlusion and stenosis of bilateral carotid arteries (principal)
CPT/HCPCS: 93880

== ENCOUNTER → 2020-06-23 11:29 | Outpatient (CLI) | payer MEDICARE, OTHER, SELFPAY ==
[2019-09-28 13:12] VITALS: BMI 32.0
[2020-05-16 08:37] VITALS: BMI 28.7
[2020-06-23 15:41] LABS: Absolute Lymphocyte Count 1.73 X10^3/uL (0.83-4.51); Absolute Neutrophil Count 4.1 X10^3/uL (2.0-7.7); Basophil# 0.03 X10^3/uL; Basophil% 0.4 % (0-1); Eosinophil# 0.11 X10^3/uL; Eosinophils% 1.6 % (0-5); Hematocrit 49.5 % (40-54); Hemoglobin 16.2 g/dL (13.0-16.5); Lymphocyte # 1.73 X10^3/ul (4.0); Lymphocyte % 25.9 % (19-41); Mean Corp Hgb Conc 32.7 g/dL (32-36); Mean Corpuscular Hgb 29.8 pg (27.0-32.0); Monocyte# 0.75 X10^3/uL; Monocyte% 11.2 % (0-10); NRBC Flagged by Analyzer 0 % (0-5); Neutrophil # 4.05 X10^3/uL (2.7-7.7); Neutrophil % 60.8 % (47-70); Platelet Count 220 K/mm3 (150-450); RBC Distribution Width CV 12.7 % (11.6-14.6); RBC Distribution Width SD 41.8 fl (35.1-43.9); Red Blood Count 5.44 M/mm3 (4.6-6.2); White Blood Count 6.7 K/mm3 (4.4-11.0)
[2020-06-23 16:10] LABS: AST(SGOT) 17 U/L (15-37); Alanine Aminotransfer ALT/SGPT 32 U/L (16-61); Albumin, Serum 3.6 g/dL (3.2-5.0); Alkaline Phosphatase 105 U/L (45-117); Anion Gap 8 (5-15); BUN 18 mg/dL (7-18); BUN/Creat Ratio 12.7 RATIO (10-20); Calcium,Total 8.8 mg/dL (8.5-10.1); Chloride 100 mmol/L (98-107); Creatinine, Serum 1.42 mg/dL (0.70-1.30); EST Glomerular Filtration Rate 51 mL/min (>60); Est Glom Filt Rate - Afr Amer 61 mL/min (>60); Globulin 3.5 g/dL (2.2-4.2); Glucose 219 mg/dL (74-106); Potassium 3.5 mmol/L (3.5-5.1); Protein, Total 7.1 g/dL (6.4-8.2); Sodium Level 134 mmol/L (136-145)
== END ==
PROVIDERS: PCP Family Medicine; Visit Provider Family Medicine
DX: I10 Essential (primary) hypertension (principal); E11.65 Type 2 diabetes mellitus with hyperglycemia; E78.00 Pure hypercholesterolemia, unspecified
CPT/HCPCS: 36415; 80053; 85025

== ENCOUNTER → 2020-09-26 11:04 | Outpatient (CLI) | payer MEDICARE, OTHER, SELFPAY ==
[2020-05-16 08:37] VITALS: BMI 28.7
[2020-09-26 12:35] LABS: Absolute Lymphocyte Count 1.89 X10^3/uL (0.83-4.51); Absolute Neutrophil Count 4.7 X10^3/uL (2.0-7.7); Basophil# 0.03 X10^3/uL; Basophil% 0.4 % (0-1); Eosinophil# 0.09 X10^3/uL; Eosinophils% 1.2 % (0-5); Hematocrit 49.3 % (40-54); Hemoglobin 16.6 g/dL (13.0-16.5); Lymphocyte # 1.89 X10^3/ul (4.0); Lymphocyte % 25.1 % (19-41); Mean Corp Hgb Conc 33.7 g/dL (32-36); Mean Corpuscular Hgb 29.7 pg (27.0-32.0); Mean Corpuscular Volume 88.4 fL (80-94); Mean Platelet Vol. 9.6 fl (6.2-12.0); Monocyte# 0.77 X10^3/uL; Monocyte% 10.2 % (0-10); NRBC Flagged by Analyzer 0 % (0-5); Neutrophil # 4.74 X10^3/uL (2.7-7.7); Platelet Count 240 K/mm3 (150-450); RBC Distribution Width CV 12.7 % (11.6-14.6); RBC Distribution Width SD 41.2 fl (35.1-43.9); Red Blood Count 5.58 M/mm3 (4.6-6.2); White Blood Count 7.5 K/mm3 (4.4-11.0)
[2020-09-26 13:12] LABS: ALB/GLOB Ratio 1.1 RATIO (0.9-2.4); AST(SGOT) 15 U/L (15-37); Alanine Aminotransfer ALT/SGPT 31 U/L (16-61); Albumin, Serum 3.7 g/dL (3.2-5.0); Alkaline Phosphatase 96 U/L (45-117); Anion Gap 6 (5-15); BUN 19 mg/dL (7-18); BUN/Creat Ratio 15.3 RATIO (10-20); Bilirubin, Direct 0.09 mg/dL (0.00-0.30); Calcium,Total 9.1 mg/dL (8.5-10.1); Chloride 102 mmol/L (98-107); Cholesterol 126 mg/dL (200); Creatinine, Serum 1.24 mg/dL (0.70-1.30); EST Glomerular Filtration Rate 59 mL/min (>60); Est Glom Filt Rate - Afr Amer 71 mL/min (>60); Globulin 3.3 g/dL (2.2-4.2); Glucose 136 mg/dL (74-106); High Density Lipoprotein 34 mg/dL; Potassium 3.5 mmol/L (3.5-5.1); Sodium Level 135 mmol/L (136-145); Triglycerides 154 mg/dL; Very Low Density Lipoprotein 31 mg/dL (5-40)
== END ==
PROVIDERS: Nurse Practitioner Family; PCP Family Medicine; Visit Provider Family Medicine
DX: I12.9 Hypertensive chronic kidney disease with stage 1 through stage 4 chronic kidney disease, or unspecified chronic kidney disease (principal); N18.30 Chronic kidney disease, stage 3 unspecified; E11.65 Type 2 diabetes mellitus with hyperglycemia
CPT/HCPCS: 80053; 80061; 82248; 85025

== ENCOUNTER 2020-10-09 07:27 | Outpatient (RCR) | payer MEDICARE, OTHER, SELFPAY ==
[2020-05-16 08:37] VITALS: BMI 28.7
[2020-10-09] MEDS: COVID-19 VACC, MRNA(PFIZER)/PF 30 MCG/0.3 ML SYRINGE IM (13:59)
[2020-10-30] MEDS: COVID-19 VACC, MRNA(PFIZER)/PF 30 MCG/0.3 ML SYRINGE IM (15:00)
== END 2021-01-13 23:59 ==
LOC: IMMUN 07:27
PROVIDERS: PCP Family Medicine; Referring Provider Family Medicine; Visit Provider Family Medicine
DX: Z23 Encounter for immunization (principal)
CPT/HCPCS: 0001A; 0002A; 91300

== ENCOUNTER → 2022-02-11 | Outpatient (CLI) | payer MEDICARE, OTHER, SELFPAY ==
[2022-02-11 15:10] LABS: Absolute Lymphocyte Count 1.69 X10^3/uL (0.83-4.51); Basophil# 0.03 X10^3/uL; Basophil% 0.5 % (0-1); Eosinophil# 0.14 X10^3/uL; Eosinophils% 2.1 % (0-5); Hematocrit 46.9 % (40-54); Hemoglobin 16.1 g/dL (13.0-16.5); Lymphocyte # 1.69 X10^3/ul (0.83-4.51); Lymphocyte % 25.7 % (19-41); Mean Corp Hgb Conc 34.3 g/dL (32-36); Mean Corpuscular Volume 87.3 fL (80-94); Monocyte% 10.7 % (0-10); NRBC Flagged by Analyzer 0 % (0-5); Neutrophil % 60.8 % (47-70); Platelet Count 225 K/mm3 (150-450); RBC Distribution Width CV 12.8 % (11.6-14.6); RBC Distribution Width SD 40.7 fl (35.1-43.9); Red Blood Count 5.37 M/mm3 (4.6-6.2); White Blood Count 6.6 K/mm3 (4.4-11.0)
[2022-02-11 15:47] LABS: ALB/GLOB Ratio 1.2 RATIO (0.9-2.4); AST(SGOT) 20 U/L (15-37); Alanine Aminotransfer ALT/SGPT 27 U/L (16-61); Albumin, Serum 3.6 g/dL (3.2-5.0); Alkaline Phosphatase 87 U/L (45-117); Anion Gap 4 (5-15); BUN 19 mg/dL (7-18); BUN/Creat Ratio 16.7 RATIO (10-20); Calcium,Total 8.9 mg/dL (8.5-10.1); Chloride 102 mmol/L (98-107); Creatinine, Serum 1.14 mg/dL (0.70-1.30); EST Glomerular Filtration Rate 65 mL/min (>60); Est Glom Filt Rate - Afr Amer 79 mL/min (>60); Globulin 2.9 g/dL (2.2-4.2); Glucose 145 mg/dL (74-106); Potassium 3.8 mmol/L (3.5-5.1); Protein, Total 6.5 g/dL (6.4-8.2); Sodium Level 136 mmol/L (136-145); Thyroid Stim Hormone (TSH) 3.82 uIU/mL (0.358-3.74)
== END | disposition home or self-care (01) ==
LOC: MTLAB 12:47
PROVIDERS: PCP Family Medicine; Referring Provider Family Medicine; Visit Provider Family Medicine
DX: E11.65 Type 2 diabetes mellitus with hyperglycemia (principal); E78.00 Pure hypercholesterolemia, unspecified; I10 Essential (primary) hypertension
CPT/HCPCS: 36415; 80053; 84443; 85025

== ENCOUNTER → 2022-04-30 | Outpatient (CLI) | payer MEDICARE, OTHER, SELFPAY ==
--- NOTE | 2022-04-30 12:53 | CDU_ITS ---
Reason For Study: Carotid stenosis Rt. Velocities/BP Lt. Velocities/BP Prox CCA 58.9/8.8 cm/sec. Prox CCA 78.7/9.7 cm/sec. Mid CCA 69.2/8.8 cm/sec. Mid CCA 94.9/7.7 cm/sec. Dist CCA 106.5/9.7 cm/sec. Dist CCA 81.4/9 cm/sec. Prox ICA 56.9/9 cm/sec. Prox ICA 81.4/13.9 cm/sec. Mid ICA 74/15.1 cm/sec. Mid ICA 87.6/16.3 cm/sec. Dist ICA 66.7/15.1 cm/sec. Dist ICA 126.6/15.2 cm/sec. Rt. ICA/CCA = 1.07. Lt. ICA/CCA = 1.56. Prox ECA 208.1/3.4 cm/sec. Prox ECA 126.6/2.4 cm/sec. Rt. Vert. 25.6/7.2 cm/sec. Lt. Vert. 38.8/8 cm/sec. Right Extracranial There is heterogeneous, irregular atherosclerotic plaque noted in the right common carotid artery. There is intimal thickening but no significant atherosclerotic plaque noted in the right internal carotid artery. There is homogeneous, irregular atherosclerotic plaque noted in the right external carotid artery. Antegrade flow is noted in the right vertebral artery. Left Extracranial There is heterogeneous, irregular atherosclerotic plaque noted in the left common carotid artery. There is heterogeneous, irregular atherosclerotic plaque noted in the left internal carotid artery. There is heterogeneous, smooth atherosclerotic plaque noted in the left external carotid artery. Antegrade flow is noted in the left vertebral artery. Procedure Carotid Duplex 34005. This is a Carotid Duplex examination using B-mode, color flow and specral Doppler. Exam performed in department. VL/Carotid Duplex Ultrasound Interpretation Summary Postoperative changes of the right carotid bulb with less than 50% stenosis of the internal carotid artery. Greater than 50% stenosis right external carotid artery Irregular plaque at the proximal left internal carotid artery with 50 to 69% st enosis. Less than 50% stenosis left external carotid artery Patent and antegrade vertebral arteries bilaterally No clinically significant change from the previous examination of April 25, 2020 Ordering Physician: Josh Reyes Referring Physician: Alvaro August Performed By: Iza Viera RVT
== END | disposition home or self-care (01) ==
LOC: CVS 12:52
PROVIDERS: PCP Family Medicine; Referring Provider Surgery; Visit Provider Surgery
DX: I65.23 Occlusion and stenosis of bilateral carotid arteries (principal)
CPT/HCPCS: 93880

== ENCOUNTER → 2022-06-02 | Outpatient (CLI) | payer MEDICARE, OTHER, SELFPAY ==
--- NOTE | 2022-06-02 07:51 | AAVD_ITS ---
Reason For Study: Rule out AAA Aorta Measurements Aorta Doppler Measurements Proximal aorta measures2.18 x 2.19cm. in cross- Peak systolic flow velocities within the proximal sectional axis. aorta measure 88.4 cm/sec. Proximal aorta measures2.17cm. in longitudinal Peak systolic flow velocities within the mid aorta axis. measure 90.9 cm/sec. Mid aorta measures1.86 x 1.78cm. in cross- Peak systolic flow velocities within the distal sectional axis. aorta measure 120.5 cm/sec. Mid aorta measures1.75cm. in longitudinal axis. Distal aorta measures1.92 x 1.92cm. in cross- sectional axis. Distal aorta measures1.58cm. in longitudinal axis. Left Iliac Artery Left iliac artery measures 0.93 x 0.99 cm. in the cross-sectional axis. Left iliac artery measures 0.99 cm. in the longitudinal axis. Peak systolic velocity in the left iliac artery measures 137.9 cm/sec. Right Iliac Artery Right iliac artery measures 1.12 x 1.20 cm. in the cross-sectional axis. Right iliac artery measures 1.08 cm. in the longitudinal axis. Peak systolic velocity in the right iliac artery measures 149.0 cm/sec. Procedure Aorta IVC Iliac vasculature or bypass grafts 22741. The exam was diagnostic. Technically difficult study due to calcified shadowing and bowel gas. Exam performed in department. VL/Abd Aortic/IVC Duplex scan Interpretation Summary Maximal aortic dimensions approximately 2.18 x 2.19 cm in diameter. Normal flow rate throughout the proximal mid abdominal aorta Left common iliac artery measures 0.93 x 0.99 cm in diameter which is normal Right common iliac measures 1.12 x 1.2 cm in diameter which is normal The exam was noted to be technically difficult due to calcific shadowing bowel gas Ordering Physician: Josh Reyes Referring Physician: Alvaro August Performed By: Vinny Talley RVT
== END | disposition home or self-care (01) ==
LOC: CVS 07:50
PROVIDERS: PCP Family Medicine; Referring Provider Surgery; Visit Provider Surgery
DX: Z13.6 Encounter for screening for cardiovascular disorders (principal); I10 Essential (primary) hypertension
CPT/HCPCS: 93978

== ENCOUNTER 2022-07-14 05:57 | Day surgery (SDC) | payer MEDICARE, OTHER, SELFPAY ==
[2022-07-08 10:41] LABS: Hematocrit 45.9 % (40-54); Hemoglobin 15.3 g/dL (13.0-16.5); Mean Corp Hgb Conc 33.3 g/dL (32-36); Mean Corpuscular Hgb 30.2 pg (27.0-32.0); Mean Corpuscular Volume 90.7 fL (80-94); Mean Platelet Vol. 9.9 fl (6.2-12.0); Platelet Count 234 K/mm3 (150-450); RBC Distribution Width CV 13.2 % (11.6-14.6); RBC Distribution Width SD 43.7 fl (35.1-43.9); Red Blood Count 5.06 M/mm3 (4.6-6.2); White Blood Count 6.3 K/mm3 (4.4-11.0)
[2022-07-08 10:56] LABS: Hemoglobin A1c 9.4 % (3.8-5.6)
[2022-07-08 11:23] LABS: Anion Gap 9 (5-15); BUN 20 mg/dL (7-18); BUN/Creat Ratio 16.7 RATIO (10-20); Chloride 103 mmol/L (98-107); EST Glomerular Filtration Rate 61 mL/min (>60); Est Glom Filt Rate - Afr Amer 74 mL/min (>60); Glucose 165 mg/dL (74-106); Potassium 3.6 mmol/L (3.5-5.1); Sodium Level 138 mmol/L (136-145)
--- NOTE | 2022-07-14 | HERN_PTH ---
PATIENT: ROBER CHAVEZ [place] [facility] [id number] AGE/SX: 86/M ROOM: RE07/14/[address]: Dr. Josh Reyes MD : [id number] BED: DIS: 07/14/2022 SPEC #: [id number] RECD: 07/14/22 09:40 STATUS: EREN KAYLEN #: [id number] LONG: 07/14/22 00:[address]: Josh Reyes DEPT: SURGICAL PATHOLOGY RECD BY: David Campos ENTERED: 07/14/22 09:40 SP TYPE: Hernia OTHR DR: Dr. Alvaro August MD Tissues: HERNIA Procedures: Decalcification bone/plaque Surgery Specimen Level II HEADER OPERATION: Umbilical hernia repair with mesh PRE-OP DIAGNOSIS: Umbilical hernia TISSUE SUBMITTED: Hernia sac and contents MICROSCOPIC DIAGNOSIS Hernia sac and contents, excision: Fibrosis and focal fat necrosis consistent with hernia sac and contents. AM:giselle 07/19/2022 MICROSCOPIC DESCRIPTION Slides are reviewed. GROSS DESCRIPTION Received in fixative is one container labeled with the patient's name and designated hernia sac and contents. The specimen consists of a piece of pink, congested membranous tissue measuring 3.5 x 1 x 0.3 cm. Also present in the container are multiple pieces of adipose tissue measuring in aggregate 6 x 6 x 2 cm. Sections of adipose tissue reveal a focal santiago-yellowish nodule measuring 1 cm in greatest dimension. Sections of the nodule reveal yellowish, indurated cut surfaces which cuts with gritty sensation. Dry Plasterer Helper sections are submitted in two cassettes. Cassette 2 contains the entire nodule after decalcification. / SJ:giselle 07/14/2022 TC:5 [facility]: [id number], [id number]
--- NOTE | 2022-07-14 06:11 | PCM.HP.BLA ---
History and Physical Date of Admission: 07/14/22 Visit Reasons:?UMBILICAL HERNIA Chief Complaint: Umbilical hernia Net Programmer Required: No Accompanied by: Niece Is patient in pain?: No Allergies No Known Allergies Allergy (Verified 06/15/22 14:29) Medications aspirin 325 mg tablet 325 mg PO DAILY 09/13/18 [History Confirmed 06/15/22] glimepiride 1 mg tablet 1 mg PO BID 11/12/20 [History Confirmed 06/15/22] nitroglycerin 0.4 mg sublingual tablet 0.4 mg sublingual Q5-15M PRN CHEST PAIN #25 tabs 11/12/20 [Rx Confirmed 06/15/22] atorvastatin 40 mg tablet 40 mg PO QDAY CHOLESTEROL #90 tabs 08/10/21 [Rx Confirmed 06/15/22] clopidogrel 75 mg tablet 75 mg PO QDAY BLOOD THINNER #90 tabs 08/10/21 [Rx Confirmed 06/15/22] isosorbide mononitrate 60 mg tablet,extended release 24 hr 60 mg PO QDAY BP #90 tabs 08/10/21 [Rx Confirmed 06/15/22] metoprolol succinate 50 mg tablet,extended release 24 hr 50 mg PO QDAY BP #90 tabs 08/10/21 [Rx Confirmed 06/15/22] potassium chloride 8 mEq capsule,extended release 8 meq PO DAILY #90 caps 08/10/21 [Rx Confirmed 06/15/22] triamterene 37.5 mg-hydrochlorothiazide 25 mg tablet 1 tab PO QDAY BP #90 tabs 08/10/21 [Rx Confirmed 06/15/22] blood sugar diagnostic (FreeStyle Lite Strips) #10 ea 05/04/22 [History Confirmed 06/15/22] insulin glargine 100 unit/mL (3 mL) subcutaneous pen (Lantus Solostar U-100 Insulin) 40 unit subcut QAM 05/04/22 [History Confirmed 06/15/22] pen needle, diabetic 31 gauge x 15/64 #50 ea 05/04/22 [History Confirmed 06/15/22] PFSH Medical History? Atherosclerotic heart disease of [place] coronary artery without angina pectoris Essential hypertension History of GI bleed Hyperlipidemia Nonrheumatic mitral (valve) prolapse Rectal cancer Screening for AAA (abdominal aortic aneurysm) Stenosis of right carotid artery Surgical History? History of basal cell carcinoma excision History of right-sided carotid endarterectomy (~03/13/18) Presence of coronary angioplasty implant and graft (~07/22/03) Presence of stent in coronary artery (~07/22/03) Family History? Father CAD (coronary artery disease) DiabetesSister Diabetes HypertensionGrandmother CAD (coronary artery disease)Grandfather CAD (coronary artery disease) Social History? Smoking Status:? Never smoker alcohol intake:? never HPI HPI HPI: 86-year-old gentleman who on June 02, 2022 had aortic screening which fails to demonstrate a aortic aneurysm.? I had seen him in the office on May 04, 2022 status post a right carotid enterectomy that I performed for him 2017.? At that time we detected and discussed his incarcerated umbilical hernia.? The patient states its been present for years but now is becoming increasingly bothersome and tender. My previous notes of May 04, 2020 to reflect the following Net Programmer Required: No Accompanied by: Niece Is patient in pain?: No Allergies No Known Allergies Allergy (Verified 05/04/22 13:06) Medications aspirin 325 mg tablet 325 mg PO DAILY 09/13/18 [History Confirmed 05/04/22] glimepiride 1 mg tablet 1 mg PO BID 11/12/20 [History Confirmed 05/04/22] nitroglycerin 0.4 mg sublingual tablet 0.4 mg sublingual Q5-15M PRN CHEST PAIN #25 tabs 11/12/20 [Rx Confirmed 05/04/22] atorvastatin 40 mg tablet 40 mg PO QDAY CHOLESTEROL #90 tabs 08/10/21 [Rx Confirmed 05/04/22] clopidogrel 75 mg tablet 75 mg PO QDAY BLOOD THINNER #90 tabs 08/10/21 [Rx Confirmed 05/04/22] isosorbide mononitrate 60 mg tablet,extended release 24 hr 60 mg PO QDAY BP #90 tabs 08/10/21 [Rx Confirmed 05/04/22] metoprolol succinate 50 mg tablet,extended release 24 hr 50 mg PO QDAY BP #90 tabs 08/10/21 [Rx Confirmed 05/04/22] potassium chloride 8 mEq capsule,extended release 8 meq PO DAILY #90 caps 08/10/21 [Rx Confirmed 05/04/22] triamterene 37.5 mg-hydrochlorothiazide 25 mg tablet 1 tab PO QDAY BP #90 tabs 08/10/21 [Rx Confirmed 05/04/22] blood sugar diagnostic (FreeStyle Lite Strips) #10 ea 05/04/22 [History Confirmed 05/04/22] insulin glargine 100 unit/mL (3 mL) subcutaneous pen (Lantus Solostar U-100 Insulin) 40 unit subcut QAM 05/04/22 [History Confirmed 05/04/22] pen needle, diabetic 31 gauge x 15/64 #50 ea 05/04/22 [History Confirmed 05/04/22] PFSH Medical History?(Updated 05/04/22 @ 13:[address] Josh Reyes MD) Atherosclerotic heart disease of [place] coronary artery without angina pectoris Essential hypertension History of GI bleed Hyperlipidemia Nonrheumatic mitral (valve) prolapse Rectal cancer Screening for AAA (abdominal aortic aneurysm) Stenosis of right carotid artery Surgical History? History of basal cell carcinoma excision History of right-sided carotid endarterectomy (~03/13/18) Presence of coronary angioplasty implant and graft (~07/22/03) Presence of stent in coronary artery (~07/22/03) Family History? Father CAD (coronary artery disease) DiabetesSister Diabetes HypertensionGrandmother CAD (coronary artery disease)Grandfather CAD (coronary artery disease) Social History? Smoking Status:? Never smoker alcohol intake:? never HPI HPI HPI: 86-year-old gentleman who I have most recently seen in the office on May 16, 2020.? At that point he returns for follow-up of a right carotid enterectomy that I performed for him March 2018.? He was doing well there were no acute issues.? Recently on April 29, 2022 had upgraded carotid duplex imaging.? This demonstrates widely patent postoperative changes of the right carotid bulb and proximal internal carotid artery with less than 50% stenosis.? There is still slightly increased velocity in the distal left internal carotid artery at 126 cm second peak systolic flow.? Technically this is consistent with 50 to 69% stenosis but is in the distal left internal carotid artery and there is not significant plaque burden identified. He has not had any BUSINESS SALES CONSULTANT or cardiac issues.? He is hard of hearing and finds using his hearing aids frustrating.? He does not have any dizziness.? No complaints.? He does ride his exercise bicycle at 4:00 in the morning April 30, 2022 [facility] For Study: Carotid stenosis Rt. Velocities/BP ? Lt. Velocities/BP Prox CCA 58.9/8.8 cm/sec. ? Prox CCA 78.7/9.7 cm/sec. Mid CCA 69.2/8.8 cm/sec.? Mid CCA 94.9/7.7 cm/sec. Dist CCA 106.5/9.7 cm/sec.? Dist CCA 81.4/9 cm/sec. Prox ICA 56.9/9 cm/sec. ? Prox ICA 81.4/13.9 cm/sec. Mid ICA 74/15.1 cm/sec. ? Mid ICA 87.6/16.3 cm/sec. Dist ICA 66.7/15.1 cm/sec.? Dist ICA 126.6/15.2 cm/sec. Rt. ICA/CCA = 1.07. ? Lt. ICA/CCA = 1.56. Prox ECA 208.1/3.4 cm/sec.? Prox ECA 126.6/2.4 cm/sec. Rt. Vert. 25.6/7.2 cm/sec.? Lt. Vert. 38.8/8 cm/sec. Right Extracranial There is heterogeneous, irregular atherosclerotic plaque noted in the right common carotid artery. There is intimal thickening but no significant atherosclerotic plaque noted in the right internal carotid artery. There is homogeneous, irregular atherosclerotic plaque noted in the right external carotid artery. Antegrade flow is noted in the right vertebral artery. Left Extracranial There is heterogeneous, irregular atherosclerotic plaque noted in the left common carotid artery. There is heterogeneous, irregular atherosclerotic plaque noted in the left internal carotid artery. There is heterogeneous, smooth atherosclerotic plaque noted in the left external carotid artery. Antegrade flow is noted in the left vertebral artery. Procedure Carotid Duplex 29316. This is a Carotid Duplex examination using B-mode, color flow and specral Doppler. Exam performed in department. VL/Carotid Duplex Ultrasound Interpretation Summary Postoperative changes of the right carotid bulb with less than 50% stenosis of the internal carotid artery. Greater than 50% stenosis right external carotid artery Irregular plaque at the proximal left internal carotid artery with 50 to 69% stenosis. Less than 50% stenosis left external carotid artery Patent and antegrade vertebral arteries bilaterally No clinically significant change from the previous examination of April 25, 2020 ? ? Ordering Physician: Josh Reyes Referring Physician: Alvaro August Performed By: Iza Viera RVT General General: Yes weight change and colon cancer; No appetite, fatigue, breast cancer or weakness HEENT HEENT: No difficulty swallowing, eye injury, eye surgery, swollen glands or hoarseness Endo Endocrine: Yes diabetes mellitus; No thyroid disease, thyroid cancer, Hair loss, heat intolerance or cold intolerance Skin Skin: No rash or changing moles Breast Breast: No left breast lump, right breast lump, nipple discharge, breast pain, abnormal mammogram, abnormal US or breast enlargement Musc Musculoskeletal: Yes back problems; No arthritis, rheumatoid arthritis, gout or joint pain Cardio Cardiovascular: Yes heart disease, high blood pressure and heart stent; No murmur, pacemaker, atrial fibrillation, heart attack, palpitations, shortness of breat with exertion or chest pain Psych Psychiatric: No depression, anxiety or hearing voices Resp Respiratory: No shortness of breath, No sleep apnea, No cough, No COPD, No asthma, No emphysema and No wheezing Gastro Gastrointestinal: No abdominal pain, No nausea or vomiting, No diarrhea, No constipation, No blood in stool, No acid reflux, No hemorrhoids, No ulcers, No gallbladder problem and No black,tarry stools Mesfin Hematologic: Yes blood thinners, No blood disorders, No bleeding, No anemia and No blood clots Neuro Neurologic: No system reviewed and no additional complaints, except as documented, No as per HPI, No abnormal gait, No abnormal hearing, No abnormal movements, No abnormal speech, No behavioral changes, No burning sensations, No confusion, No convulsions, No disequilibrium, No dizziness, No localized weakness, No frequent falls, No headache(s), No lack of coordination, No loss of vision, No memory loss, No numbness, No other visual disturbances, No radicular pain, No restless legs, No sensory deficit, No syncope, No tingling, No tremor(s), No weakness and No other Exam Const General: cooperative, healthy appearing and comfortable [facility] Head: normal to inspection Neck Other: Well-healed surgical incision right carotid.? Very soft 1/6 bruit.? Carotid pulses are 3+ bilaterally.? No bruits on the left. Chest Chest palpation & inspection: normal inspection of the chest Resp Effort & Inspection: normal respiratory effort Auscultation: clear to auscultation bilaterally Cardio Rate: regular rate Rhythm: regular rhythm GI Inspection: normal to inspection Palpation: soft Other: Overweight, incarcerated umbilical hernia Assessment and Plan Assessment and Plan (1) Carotid stenosis: ?Status:?Acute (2) History of right-sided carotid endarterectomy: ?Status:?Chronic (3) Screening for AAA (abdominal aortic aneurysm): ?Status:?Acute (4) Umbilical hernia, incarcerated: ?Status:?Acute ? ? ? Orders: Orders Abd Aortic/IVC Duplex scan Today? I10 - Essential (primary) hypertension, Z13.6 - Encounter for screening for cardiovascular disorders ? Plan The patient's extracranial carotid disease is very stable and asymptomatic.? He does not require any intervention at this time.? I recommend repeat carotid duplex imaging at 2 years On review of his previous testing I have not seen a screening exam for aortic aneurysm and I recommend a aortic duplex exam The patient has a known incarcerated umbilical hernia.? The skin is slightly thin.? Not symptomatic.? As previously he was really offered the option of consideration of surgical repair.? He will consider his treatment options.? He will notify me if he wants to pursue. I appreciate the opportunity of assisting with the surgical care Copy: Dr. Alvaro Reyes M.D., F.A.C.S. [facility] General General: Yes weight change and colon cancer; No appetite, fatigue, breast cancer or weakness HEENT HEENT: No difficulty swallowing, eye injury, eye surgery, swollen glands or hoarseness Endo Endocrine: Yes diabetes mellitus; No thyroid disease, thyroid cancer, Hair loss, heat intolerance or cold intolerance Skin Skin: No rash or changing moles Breast Breast: No left breast lump, right breast lump, nipple discharge, breast pain, abnormal mammogram, abnormal US or breast enlargement Musc Musculoskeletal: Yes back problems; No arthritis, rheumatoid arthritis, gout or joint pain Cardio Cardiovascular: Yes heart disease, high blood pressure and heart stent; No murmur, pacemaker, atrial fibrillation, heart attack, palpitations, shortness of breat with exertion or chest pain Psych Psychiatric: No depression, anxiety or hearing voices Resp Respiratory: No shortness of breath, No sleep apnea, No cough, No COPD, No asthma, No emphysema and No wheezing Gastro Gastrointestinal: No abdominal pain, No nausea or vomiting, No diarrhea, No constipation, No blood in stool, No acid reflux, No hemorrhoids, No ulcers, No gallbladder problem and No black,tarry stools Mesfin Hematologic: Yes blood thinners, No blood disorders, No bleeding, No anemia and No blood clots Neuro Neurologic: No system reviewed and no additional complaints, except as documented, No as per HPI, No abnormal gait, No abnormal hearing, No abnormal movements, No abnormal speech, No behavioral changes, No burning sensations, No confusion, No convulsions, No disequilibrium, No dizziness, No localized weakness, No frequent falls, No headache(s), No lack of coordination, No loss of vision, No memory loss, No numbness, No other visual disturbances, No radicular pain, No restless legs, No sensory deficit, No syncope, No tingling, No tremor(s), No weakness and No other Assessment and Plan Assessment and Plan (1) Umbilical hernia, incarcerated: ?Status:?Acute ?Plan: Incarcerated umbilical hernia.? I recommend an umbilical herniorrhaphy with mesh.? I described the technique, benefit, risk, alternatives.? I am hoping to be able to use Ventralex mesh.? We will have him hold his clopidogrel 3 days preop and is 325 mg aspirin 1 day preop.? He is aware that we will utilize general anesthesia.? He is aware that patient cooperation postoperatively to allow for healing and repair will be required.? I am hoping to get this placed in a retrorectus position.? He has had an opportunity ask and have questions answered.? We will schedule procedure at his discretion.? I appreciate the ongoing opportunity of assisting with the surgical care. Copy: Dr. Alvaro August and Dr. Douglas Reyes M.D., F.A.C.S Screening aortic ultrasound that was obtained did not demonstrate any evidence of abdominal aortic aneurysm. The patient states that his blood sugars run approximately 120 at home and that his glucometer at home gives him an MARLINE 1C reading of approximately 6. He has had no change in health. History and physical was reviewed. Umbilical hernia reviewed. We will proceed with repair. Josh Reyes M.D., F.A.C.S.
[2022-07-14 06:37] VITALS: BP 105/64; PULSE 84; RESP 16; TEMP 36.7; O2SAT 98; BMI 31.3
[2022-07-14] MEDS: Lactated Ringers 1,000 ML 15 ML IV (07:00)
--- NOTE | 2022-07-14 07:19 | DCINST_ITS ---
Discharge Instructions Procedure General Surgery Diet Discharge Diet: Light diet - advance as tolerated (if you have questions about your diet instructions, please talk to you doctor.) Activity Discharge Activity: May Not Drive (for 3-5 days or while taking narcotic pain medicine.) May shower in (days): 1 Lifting Restrictions: 10 pounds Dressing / Incision Call your doctor if your incision/area has: Continuous Slow Oozing, Sudden Increased Bleeding, Increased Pain/ Swelling, Increased Redness and Foul Smelling Discharge Call your doctor if you observe: Fever of 101 or Higher Suture Line Care: Avoid Pulling/Pushing and Avoid Pinching/Bending Additional Dressing/Incision Instructions:: Change or remove dressing in 4 days. Leave steri-strips in place for 1 week. Follow Up Care Please Follow Up With: Josh Reyes MD When: Call [phone] to make an appointment to be seen in about 10 days. Test Results: Test results from this visit will be discussed in further detail at your follow- up appointment, if applicable. Discharge Plan Admission Attending Provider: Josh Reyes Primary Care Provider: Alvaro August Discharge Orders/Prescriptions Prescriptions: No Action aspirin 325 mg tablet 325 mg PO DAILY nitroglycerin 0.4 mg tablet, sublingual 0.4 mg SUBLINGUAL Q5-15M PRN (Reason: CHEST PAIN) Qty: 25 1RF Lantus Solostar U-100 Insulin 100 unit/mL (3 mL) insulin pen 40 unit subcut QAM (DME) FreeStyle Lite Strips Strip See Rx Instructions .ROUTE .MEDSUPPLY Qty: 10 Label Comments: USE STRIP TO CHECK GLUCOSE ONCE DAILY Rx Instructions: As directed (DME) pen needle, diabetic 31 gauge x 15/64 needle See Rx Instructions .ROUTE .MEDSUPPLY Qty: 50 Label Comments: USE ONCE DAILY Rx Instructions: As directed clopidogrel 75 mg tablet 75 mg PO QDAY Qty: 90 3RF atorvastatin 40 mg tablet 40 mg PO QDAY Qty: 90 3RF isosorbide mononitrate 60 mg tablet extended release 24 hr 60 mg PO QDAY Qty: 90 3RF metoprolol succinate 50 mg tablet extended release 24 hr 50 mg PO QDAY Qty: 90 3RF potassium chloride 8 mEq capsule, extended release 8 meq PO DAILY Qty: 90 3RF triamterene-hydrochlorothiazid 37.5-25 mg tablet 1 tab PO QDAY Qty: 90 3RF Other Ambulatory Orders: 12 Lead EKG (Routine) Timeframe: 20220708 Location: None Selected Ordered By: Dr. Josh Reyes Referrals / Follow Up: Alvaro August MD [Primary Care Provider] - Disposition Disposition (needs filled in before D/C Order can be placed): Home, Self Care
[2022-07-14 07:25] LABS: Bedside Glucose 148 mg/dL (74-106)
[2022-07-14] MEDS: Cefazolin 2 GM in 0.9% Normal Saline 100 ML IV (07:29)
--- NOTE | 2022-07-14 08:26 | PCM.OPRPT ---
Problems Associated Problem List Diagnoses (1) Umbilical hernia, incarcerated: Report of Operation Date of Procedure: 07/14/22 Pre-Operative Diagnosis: Incarcerated umbilical hernia Post-Operative Diagnosis: Same Surgery/Procedure Performed:: Umbilical herniorrhaphy with [address] mesh Reference [id number], lot number [id number], expiry date 02/03/2024 Description of Surgical Findings:: Timeout informed consent was obtained. 86-year-old gentleman was taken to the operating placed on table underwent general endotracheal intubation esthesia the abdomen was sterilely prepped and draped Ancef 2 g were given intravenously preoperatively a curvilinear incision was made at the inferior portion of the umbilicus sharp and blunt dissection was used a dissect free the umbilical skin there was hernia sac and incarcerated omentum within. The omentum had to be transected with electrocautery there appeared to be some fibrous nodule within the omentum and that was transected and submitted as well. Hemostasis was intact. I did make an attempt to free the preperitoneum but that layer was very thin and fragile. I placed an [address] mesh. The tails were secured in place with 0 Nurolon. I assured good opening of the mesh. Then used 0 Nurolon in a simple transverse fashion to repair the 2 and half centimeter defect. Caught the anterior surface of the mesh with the stitch. The mesh had been wetted and activated. Then had to trim excess umbilical skin. The remainder then was closed with interrupted 4 Monocryl subdermal stitches. Steri-Strips cottonball Telfa OpSite dressings applied. Sponge and instrument and needle counts were reported to the surgeon to be correct. Specimen hernia sac and contents. Drains none. Blood loss minimal. The patient was taken to the recovery room in satisfied condition without apparent complication Josh Reyes M.D., F.A.C.S. Surgeon: Josh Reyes Type of Anesthesia: General
[2022-07-14 08:37] VITALS: BP 105/64; BP 134/66; PULSE 82; RESP 16; TEMP 36.5; O2SAT 94
[2022-07-14 08:45] VITALS: BP 105/64; BP 137/70; PULSE 79; RESP 16; O2SAT 94
[2022-07-14 09:00] VITALS: BP 105/64; BP 118/58; PULSE 70; RESP 16; O2SAT 96
[2022-07-14 09:14] VITALS: BP 105/64; BP 120/59; PULSE 68; RESP 16; TEMP 36.5; O2SAT 95
[2022-07-14 10:37] VITALS: BP 105/64; BP 125/51; PULSE 65; RESP 16; TEMP 36.6; O2SAT 96
== END 2022-07-14 10:50 | disposition home or self-care (01) ==
LOC: SDC 05:57 → AC 05:57
PROVIDERS: PCP Family Medicine; Referring Provider Surgery; Visit Provider Surgery
PROC: (CPT 49587; principal; 2022-07-14 07:15)
DX: K42.0 Umbilical hernia with obstruction, without gangrene (principal); Z79.4 Long term (current) use of insulin; I34.1 Nonrheumatic mitral (valve) prolapse; H91.90 Unspecified hearing loss, unspecified ear; Z79.82 Long term (current) use of aspirin; Z79.899 Other long term (current) drug therapy; I10 Essential (primary) hypertension; Z79.02 Long term (current) use of antithrombotics/antiplatelets
CPT/HCPCS: 49587; 00750; 36415; 80048; 82962; 83036; 85027; 88302; 88311; 93005; J7120; C1781; J2405

== ENCOUNTER → 2022-11-23 | Outpatient (CLI) | payer MEDICARE, OTHER, SELFPAY ==
[2022-11-23 12:44] LABS: Absolute Lymphocyte Count 2.15 X10^3/uL (0.83-4.51); Absolute Neutrophil Count 5.2 X10^3/uL (2.0-7.7); Basophil# 0.04 X10^3/uL; Basophil% 0.5 % (0-1); Eosinophil# 0.16 X10^3/uL; Eosinophils% 1.9 % (0-5); Hematocrit 47.4 % (40-54); Lymphocyte # 2.15 X10^3/ul (0.83-4.51); Lymphocyte % 25.6 % (19-41); Mean Corp Hgb Conc 33.8 g/dL (32-36); Mean Corpuscular Hgb 30.1 pg (27.0-32.0); Mean Corpuscular Volume 89.1 fL (80-94); Mean Platelet Vol. 10.1 fl (6.2-12.0); Monocyte# 0.89 X10^3/uL; Monocyte% 10.6 % (0-10); NRBC Flagged by Analyzer 0 % (0-5); Neutrophil # 5.15 X10^3/uL (2.7-7.7); Neutrophil % 61.2 % (47-70); Platelet Count 237 K/mm3 (150-450); RBC Distribution Width CV 13.6 % (11.6-14.6); Red Blood Count 5.32 M/mm3 (4.6-6.2); White Blood Count 8.4 K/mm3 (4.4-11.0)
[2022-11-23 13:07] LABS: Hemoglobin A1c 8.7 % (3.8-5.6)
[2022-11-23 13:34] LABS: AST(SGOT) 17 U/L (15-37); Alanine Aminotransfer ALT/SGPT 28 U/L (16-61); Albumin, Serum 3.4 g/dL (3.2-5.0); Alkaline Phosphatase 97 U/L (45-117); Anion Gap 4 (5-15); BUN 20 mg/dL (7-18); BUN/Creat Ratio 16.5 RATIO (10-20); Calcium,Total 9.3 mg/dL (8.5-10.1); Chloride 103 mmol/L (98-107); Cholesterol 118 mg/dL (200); Creatinine, Serum 1.21 mg/dL (0.70-1.30); EST Glomerular Filtration Rate 60 mL/min (>60); Est Glom Filt Rate - Afr Amer 73 mL/min (>60); Globulin 3.3 g/dL (2.2-4.2); Glucose 157 mg/dL (74-106); High Density Lipoprotein 33 mg/dL; Potassium 3.8 mmol/L (3.5-5.1); Protein, Total 6.7 g/dL (6.4-8.2); Sodium Level 137 mmol/L (136-145); Thyroid Stim Hormone (TSH) 2.93 uIU/mL (0.358-3.74); Triglycerides 135 mg/dL; Very Low Density Lipoprotein 27 mg/dL (5-40)
[2022-11-23 15:54] LABS: Microalbumin,Random Urine 21.4 mg/L (NO RANGE EST.); Microalbumin:Creatinine Ratio 13.2 mg/g CRE (<30 mg/g CRE)
== END | disposition home or self-care (01) ==
LOC: BFHLAB 09:25
PROVIDERS: PCP Family Medicine; Referring Provider Family Medicine; Visit Provider Family Medicine
DX: E11.628 Type 2 diabetes mellitus with other skin complications (principal); L84 Corns and callosities; I25.10 Atherosclerotic heart disease of native coronary artery without angina pectoris; E78.00 Pure hypercholesterolemia, unspecified; R79.89 Other specified abnormal findings of blood chemistry
CPT/HCPCS: 36415; 80053; 80061; 82043; 82570; 83036; 84443; 85025

== ENCOUNTER → 2022-11-30 | Outpatient (CLI) | payer MEDICARE, OTHER, SELFPAY ==
[2022-11-30 13:42] LABS: Anion Gap 7 (5-15); BUN 17 mg/dL (7-18); BUN/Creat Ratio 13.4 RATIO (10-20); Calcium,Total 9.6 mg/dL (8.5-10.1); Chloride 102 mmol/L (98-107); Creatinine, Serum 1.27 mg/dL (0.70-1.30); EST Glomerular Filtration Rate 57 mL/min (>60); Est Glom Filt Rate - Afr Amer 69 mL/min (>60); Glucose 104 mg/dL (74-106); Potassium 3.3 mmol/L (3.5-5.1); Sodium Level 137 mmol/L (136-145)
== END | disposition home or self-care (01) ==
PROVIDERS: PCP Family Medicine; Referring Provider Internal Medicine Cardiovascular Disease; Visit Provider Internal Medicine Cardiovascular Disease
DX: I25.10 Atherosclerotic heart disease of native coronary artery without angina pectoris (principal); I10 Essential (primary) hypertension
CPT/HCPCS: 36415; 80048

== ENCOUNTER → 2022-12-07 | Outpatient (CLI) | payer MEDICARE, OTHER, SELFPAY ==
[2022-12-07 07:43] LABS: Potassium 3.7 mmol/L (3.5-5.1)
== END | disposition home or self-care (01) ==
PROVIDERS: Internal Medicine Cardiovascular Disease; PCP Family Medicine; Referring Provider Family Medicine; Visit Provider Family Medicine
DX: E87.6 Hypokalemia (principal)
CPT/HCPCS: 36415; 84132

== ENCOUNTER → 2023-05-11 | Outpatient (CLI) | payer MEDICARE, OTHER, SELFPAY ==
[2023-05-11 12:54] LABS: AST(SGOT) 18 U/L (15-37); Alanine Aminotransfer ALT/SGPT 28 U/L (16-61); Albumin, Serum 3.5 g/dL (3.2-5.0); Alkaline Phosphatase 104 U/L (45-117); Anion Gap 5 (5-15); BUN 19 mg/dL (7-18); BUN/Creat Ratio 14.3 RATIO (10-20); Calcium,Total 8.9 mg/dL (8.5-10.1); Chloride 107 mmol/L (98-107); Cholesterol 126 mg/dL (200); Creatinine, Serum 1.33 mg/dL (0.70-1.30); EST Glomerular Filtration Rate 54 mL/min (>60); Est Glom Filt Rate - Afr Amer 66 mL/min (>60); Globulin 3.4 g/dL (2.2-4.2); Glucose 141 mg/dL (74-106); High Density Lipoprotein 34 mg/dL; Protein, Total 6.9 g/dL (6.4-8.2); Sodium Level 140 mmol/L (136-145); Triglycerides 132 mg/dL; Very Low Density Lipoprotein 26 mg/dL (5-40)
[2023-05-11 13:33] LABS: Hemoglobin A1c 7.5 % (3.8-5.6)
== END | disposition home or self-care (01) ==
LOC: BFHLAB 08:13
PROVIDERS: PCP Family Medicine; Referring Provider Family Medicine; Visit Provider Family Medicine
DX: I25.10 Atherosclerotic heart disease of native coronary artery without angina pectoris (principal); E11.9 Type 2 diabetes mellitus without complications; I10 Essential (primary) hypertension
CPT/HCPCS: 36415; 80053; 80061; 83036

== ENCOUNTER 2023-11-21 12:34 | Emergency (ER) | payer MEDICARE, OTHER, SELFPAY ==
[2023-11-21 12:37] VITALS: BP 160/71; PULSE 90; RESP 16; TEMP 36.3; O2SAT 94; BMI 31.3
[2023-11-21 12:41] VITALS: BP 160/71; PULSE 90; RESP 16; TEMP 36.3; O2SAT 94
[2023-11-21 12:42] VITALS: O2SAT 94
--- NOTE | 2023-11-21 12:42 | CT_ITS ---
STUDY: CT BRAIN WITHOUT CONTRAST REASON FOR EXAM: Male, 88 years old. Head injury. Laceration overlying the left side of the forehead. Patient is on Plavix. RADIATION DOSAGE (If Supplied By Facility): CTDIvol = ( 44.99 ) mGy, DLP = ( 829.85 ) mGycm TECHNIQUE: Transaxial CT imaging of the brain was performed without administration of intravenous contrast material. Individualized dose optimization techniques were used for this CT. COMPARISON: No relevant priors. FINDINGS: There is a moderate-sized scalp hematoma overlying the left frontal parietal bones. There is evidence of laceration. Normal calvarium. There is mild cerebral atrophy with widening of the extra-axial spaces and ventricular dilatation. There are areas of decreased attenuation within the white matter tracts of the supratentorial brain, consistent with microvascular disease changes. Normal basal ganglia and thalami. Normal brainstem. Normal cerebellum. There is no intracranial hemorrhage. There are no findings of an acute ischemic infarction. Mucosal thickening along the posterior aspect of the left maxillary sinus. Mild degree of mucosal thickening of the left ethmoid sinus. 8.4 mm polyp or retention cyst in the anterior right maxilla. CT/Brain/Head without Contrast IMPRESSION: Chronic involutional changes of the brain. Moderate sized scalp hematoma with laceration overlying the left frontal parietal bones. Electronically Signed: Jayjay Camargo MD at 14:09 EDT ,
--- NOTE | 2023-11-21 12:42 | CT_ITS ---
STUDY: CT CERVICAL SPINE WITHOUT CONTRAST REASON FOR EXAM: Male, 88 years old. Head injury RADIATION DOSAGE (If Supplied By Facility): CTDIvol = ( 26.96 ) mGy, DLP = ( 617.75 ) mGycm TECHNIQUE: High resolution transaxial imaging was performed without contrast material. Sagittal and coronal images were reconstructed. Individualized dose optimization techniques were used for this CT. COMPARISON: None FINDINGS: Normal craniovertebral junction. There are degenerative changes of the anterior atlantoaxial articulation. Normal odontoid process. There is straightening of the normal cervical lordosis. Normal vertebral bodies and posterior osseous elements. C2-3: Normal endplates. Normal disc height and morphology. Normal central canal and intervertebral neuroforamina. C3-4: Mild degree of disc space narrowing. Spondylosis. No spinal stenosis seen. C4-5: Normal endplates. Normal disc height and morphology. Normal central canal and intervertebral neuroforamina. C5-6: Marked degree of disc space narrowing and spondylosis. Uncovertebral arthrosis. Moderate degree of bilateral neural foraminal stenosis worse on the left side with left asymmetric canal stenosis due to posterior spondylosis. C6-7: Marked degree of disc space narrowing. Spondylosis. Uncovertebral arthrosis. Moderate left neural foraminal stenosis. C7-T1: Marked degree of disc space narrowing and spondylosis. Normal visualized soft tissue structures. CT/Spine Cervical without Contras IMPRESSION: Multilevel degenerative changes, as described above. Electronically Signed: Jayjay Camargo MD at 14:11 EDT ,
--- NOTE | 2023-11-21 12:50 | EX.ED.GENINJ ---
HPI <JENNIFER Rueda - Last Filed: 11/21/23 15:08> History of Present Illness Chief Complaint: Fall Narrative Narrative: Patient presenting today due to a head injury that occurred this afternoon. He reports that he was walking with his cane when he accidentally put his cane on his shoe while walking causing him to fall forward and hit his head on his bookcase. He has a laceration to his scalp. He does take aspirin and Plavix daily due to history of CAD with stent placement. He denies any LOC, tetanus is not up-to-date. He denies any other injury. Tetanus Immunization: Unknown [facility] <JENNIFER Rueda - Last Filed: 11/21/23 15:08> [facility] Medical History Arthritis Atherosclerotic heart disease of [place] coronary artery without angina pectoris Back pain Cancer Cardiology follow-up encounter Dietary restriction Essential hypertension High cholesterol History of echocardiogram History of GI bleed History of stress test Hx of carcinoma in situ of rectum Hyperlipidemia Hypokalemia Insulin dependent diabetes mellitus Non-smoker Nonrheumatic mitral (valve) prolapse Presence of stent in coronary artery (~07/22/03) Rectal cancer Screening for AAA (abdominal aortic aneurysm) Stenosis of right carotid artery Umbilical hernia, incarcerated Wears dentures Wears hearing aid Home Medications aspirin 325 mg tablet 325 mg PO DAILY 09/13/18 [History Last Taken Unknown] blood sugar diagnostic (FreeStyle Lite Strips) #10 ea 05/04/22 [History Last Taken Unknown] insulin glargine 100 unit/mL (3 mL) subcutaneous pen (Lantus Solostar U-100 Insulin) 40 unit subcut QAM 05/04/22 [History Last Taken Unknown] pen needle, diabetic 31 gauge x 15/64 #50 ea 05/04/22 [History Last Taken Unknown] glipizide 5 mg tablet 5 mg PO DAILY 11/24/22 [History Last Taken Unknown] clopidogrel 75 mg tablet 75 mg PO QDAY BLOOD THINNER #90 tabs 12/21/22 [Rx Last Taken Unknown] valsartan 80 mg tablet 80 mg PO DAILY #90 tabs 12/21/22 [Rx Last Taken Unknown] atorvastatin 40 mg tablet 40 mg PO QDAY CHOLESTEROL #90 tabs 02/10/23 [Rx Last Taken Unknown] isosorbide mononitrate 60 mg tablet,extended release 24 hr 60 mg PO QDAY BP #90 tabs 02/10/23 [Rx Last Taken Unknown] metoprolol succinate 50 mg tablet,extended release 24 hr 50 mg PO QDAY BP #90 tabs 02/10/23 [Rx Last Taken Unknown] nitroglycerin 0.4 mg sublingual tablet 0.4 mg sublingual Q5-15M PRN CHEST PAIN #25 tabs 02/10/23 [Rx Last Taken Unknown] triamterene 37.5 mg-hydrochlorothiazide 25 mg tablet 1 tab PO QDAY BP #90 tabs 02/10/23 [Rx Last Taken Unknown] potassium chloride 8 mEq capsule,extended release 8 meq PO DAILY #90 caps 02/18/23 [Rx Last Taken Unknown] Allergy/AdvReac Type Severity Reaction Status Date / Time No Known Allergies Allergy Verified 11/24/22 13:59 Family History Father CAD (coronary artery disease) Diabetes Sister Diabetes Hypertension Grandmother CAD (coronary artery disease) Grandfather CAD (coronary artery disease) Surgical History History of basal cell carcinoma excision History of right-sided carotid endarterectomy (~03/13/18) Hx of colonoscopy Presence of coronary angioplasty implant and graft (~07/22/03) Social History Smoking Status: Never smoker alcohol intake: never ROS <JENNIFER Rueda - Last Filed: 11/21/23 15:08> ROS ED Constitutional Constitutional ED: Denies chills or fever(s) Eyes Eyes: Denies change in vision Cardiovascular Cardiovascular: Denies chest pain Respiratory/Chest Respiratory/Chest: Denies cough or dyspnea Gastrointestinal Gastrointestinal: Denies abdominal pain, nausea or vomiting Musculoskeletal Musculoskeletal: Denies arthralgias, myalgias or neck pain Integumentary Reports laceration Neurologic Neurologic: Denies dizziness, headache(s), paresthesias or weakness EXAM <JENNIFER Rueda - Last Filed: 11/21/23 15:08> Physical Exam Const Vital Signs: 11/21/23 12:37 11/21/23 12:41 11/21/23 12:42 Temperature 97.4 F L 97.4 F L Temperature Source Temporal Temporal Pulse Rate 90 90 Respiratory Rate 16 16 Respiratory Effort Normal Non-Labored Respiratory Depth Normal Respiratory Pattern Normal Blood Pressure 160/71 H 160/71 H Blood Pressure Mean 100 100 Pulse Ox 94 94 94 Oxygen Delivery Method Room Air Room Air Room Air 11/21/23 14:35 Temperature Temperature Source Pulse Rate 92 Respiratory Rate 18 Respiratory Effort Respiratory Depth Respiratory Pattern Blood Pressure 98/68 Blood Pressure Mean 78 Pulse Ox 98 Oxygen Delivery Method Room Air Positive well nourished, well developed and no apparent distress General Appearance ED: well developed HEENT Reports normocephalic and head/scalp atraumatic HEENT Narrative: 13 cm full-thickness linear laceration to the left forehead and frontal scalp. Mouth ED: Yes moist mucous membranes normal Eyes PERRL and EOMs intact bilaterally Neck full ROM and supple Chest Wall inspection of chest normal Resp normal respiratory effort and clear to auscultation bilaterally Cardio regular rate and regular rhythm GI soft to palpation, non-tender, non-distended and no masses Back/Spine normal ROM and normal to inspection Extremity normal to inspection and full ROM Neuro oriented x3, CN's II-XII intact bilaterally, moves all extremities, no focal motor deficits and no sensory deficits noted Sensorium / Orientation: awake and alert Psych mental status grossly normal and thought process normal <Dr. Dino Taylor DO - Last Filed: 11/21/23 14:45> Physical Exam Const Vital Signs: 11/21/23 12:37 11/21/23 12:41 11/21/23 12:42 Temperature 97.4 F L 97.4 F L Temperature Source Temporal Temporal Pulse Rate 90 90 Respiratory Rate 16 16 Respiratory Effort Normal Non-Labored Respiratory Depth Normal Respiratory Pattern Normal Blood Pressure 160/71 H 160/71 H Blood Pressure Mean 100 100 Pulse Ox 94 94 94 Oxygen Delivery Method Room Air Room Air Room Air 11/21/23 14:35 Temperature Temperature Source Pulse Rate 92 Respiratory Rate 18 Respiratory Effort Respiratory Depth Respiratory Pattern Blood Pressure 98/68 Blood Pressure Mean 78 Pulse Ox 98 Oxygen Delivery Method Room Air PROC <Kirsten Pickard PA - Last Filed: 11/21/23 15:08> Procedures Lacerations laceration: Length: 13 cm Depth: Sub Q Shape: Linear Prep: Chlorhexadine Laceration repair: Irrigated, Lidocaine with epi and Wound explored Irrigated (ml): 500 Number of Sutures/Elvira: 20 Suture Information: Ethilon, Simple and 4-0 [facility] <JENNIFER Rueda - Last Filed: 11/21/23 15:08> [facility] Narrative Medical decision making narrative: Patient presenting due to a head injury and facial laceration that occurred today after mechanical fall. He has a 13 cm full-thickness linear laceration to his left forehead and frontal scalp. This was copiously irrigated with normal saline, cleaned with chlorhexidine, and repaired with sutures. This was then dressed with bacitracin ointment. Patient tolerated procedure well. Wound care instructions discussed. Patient is to have stitches removed in [address] neck [address] obtained to rule out intracranial bleed and cervical fracture, these are negative for acute findings other than the forehead hematoma/laceration. Return instructions were given and patient discharged home in stable condition. He is comfortable with plan. Radiography Diagnostic Testing: Clinical Impression(s) from Imaging Studies Brain CT 11/21/23 12:42 IMPRESSION: Chronic involutional changes of the brain. Moderate sized scalp hematoma with laceration overlying the left frontal parietal bones. Electronically Signed: Jayjay Camargo MD at 14:09 EDT , Cervical Spine CT 11/21/23 12:42 IMPRESSION: Multilevel degenerative changes, as described above. Electronically Signed: Jayjay Camargo MD at 14:11 EDT , <Dr. Dino Taylor, DO - Last Filed: 11/21/23 14:45> [facility] Radiography Diagnostic Testing: Clinical Impression(s) from Imaging Studies Brain CT 11/21/23 12:42 IMPRESSION: Chronic involutional changes of the brain. Moderate sized scalp hematoma with laceration overlying the left frontal parietal bones. Electronically Signed: Jayjay Camargo MD at 14:09 EDT , Cervical Spine CT 11/21/23 12:42 IMPRESSION: Multilevel degenerative changes, as described above. Electronically Signed: Jayjay Camargo MD at 14:11 EDT , Treatment and Re-Evaluation Narrative: I have personally performed a face to face assessment of the patient and have reviewed the NOEL Note. I performed a substantive portion of the visit including all aspects of the following. My vasquez findings include: History: Patient presents after a fall that occurred today. Patient states she got up from a seated position and his cane went onto his shoe instead of the floor. This caused him to fall forward. Patient hit his head on a bookcase. Patient denies any loss of consciousness. Patient denies any paresthesias or weakness. Patient cut his head. Patient also has abrasions to both forearms and his right knee. Patient is unsure of his last tetanus. Exam: Vital signs are stable. Patient is afebrile. Patient is in no acute distress. Cranial nerves II through XII are intact. Strength is 5/5 bilaterally upper and lower extremities. There are no sensory deficits noted. Heart was regular rate and rhythm. Lungs are clear and equal bilaterally. Abdomen is soft. Bowel sounds are normal. There is no tenderness. There is a laceration over the frontal scalp and forehead. There are skin tears over the forearms bilaterally and a superficial abrasion over the anterior knee. There is a 13 cm full-thickness curvilinear laceration over the left frontal scalp. There is moderate gapping of the wound margins. There is no bony crepitance or step-off noted. There are no foreign bodies noted. Medical Decision Making: Since the patient is on Plavix, CT of the brain will be obtained to assess for intracranial bleeding. CT scan of the cervical spine will be obtained to assess for cervical spine fracture. Patient was given a tetanus booster. The frontal scalp laceration was cleaned and repaired by the NOEL under my supervision. CT scan of the brain was reviewed. There is no intracranial bleeding noted. There is no acute process noted. This was interpreted by the radiologist and was also independently reviewed by myself. CT scan of the cervical spine was obtained. There are multilevel degenerative changes. There is no acute fracture or spondylolisthesis. This was interpreted by the radiologist and was also independently reviewed by myself. Patient tolerated procedure well. Patient was instructed to follow-up with his primary care physician in 5 to 7 days for wound recheck and suture removal. Patient and family understood and were agreeable with the plan. All questions were answered. Discharge Plan Triage Chief Complaint: Fall ED Midlevel Provider: Kirsten Pickard ED Provider: Dino Taylor Dx/Rx/DC Orders Clinical Impression: Laceration of head, Head injury, Fall Instructions: ED Head Injury (Adult), ED Laceration, All Closures Prescriptions: No Action aspirin 325 mg tablet 325 mg PO DAILY Lantus Solostar U-100 Insulin 100 unit/mL (3 mL) insulin pen 40 unit subcut QAM (DME) FreeStyle Lite Strips Strip See Rx Instructions .ROUTE .MEDSUPPLY Qty: 10 Patient Comments: USE STRIP TO CHECK GLUCOSE ONCE DAILY Rx Instructions: As directed (DME) pen needle, diabetic 31 gauge x 15/64 needle See Rx Instructions .ROUTE .MEDSUPPLY Qty: 50 Patient Comments: USE ONCE DAILY Rx Instructions: As directed glipizide 5 mg tablet 5 mg PO DAILY clopidogrel 75 mg tablet 75 mg PO QDAY Qty: 90 3RF valsartan 80 mg tablet 80 mg PO DAILY Qty: 90 3RF atorvastatin 40 mg tablet 40 mg PO QDAY Qty: 90 3RF isosorbide mononitrate 60 mg tablet extended release 24 hr 60 mg PO QDAY Qty: 90 3RF metoprolol succinate 50 mg tablet extended release 24 hr 50 mg PO QDAY Qty: 90 3RF triamterene-hydrochlorothiazid 37.5-25 mg tablet 1 tab PO QDAY Qty: 90 3RF nitroglycerin 0.4 mg tablet, sublingual 0.4 mg SUBLINGUAL Q5-15M PRN (Reason: CHEST PAIN) Qty: 25 1RF potassium chloride 8 mEq capsule, extended release 8 meq PO DAILY Qty: 90 3RF Primary Care Provider: Vipul Zamora Referrals: Vipul Zamora, DO [Primary Care Provider] - 7 Days for suture removal Activity Restrictions/Additional Instructions: Please follow-up with your PCP in 7 to 10 days to have stitches removed. Return for any worsening of your symptoms. Disposition Disposition: Home, Self Care
[2023-11-21] MEDS: Lidocaine 1% /Epi 1:100 (20ml) 20 ML Vial 10 ML INFILT (13:40)
[2023-11-21] MEDS: Diphth,Pertuss(Acell),Tet Vac 0.5 ML Vial IM (13:40)
[2023-11-21 14:35] VITALS: BP 98/68; PULSE 92; RESP 18; O2SAT 98
[2023-11-21 15:19] VITALS: BP 102/78; PULSE 78; RESP 16; TEMP 36.3; O2SAT 98
== END 2023-11-21 15:20 | disposition home or self-care (01) ==
PROVIDERS: Emergency Provider Emergency Medicine; PCP Family Medicine; Visit Provider Emergency Medicine
DX: S01.01XA Laceration without foreign body of scalp, initial encounter (principal); I25.10 Atherosclerotic heart disease of native coronary artery without angina pectoris; Z95.5 Presence of coronary angioplasty implant and graft; Z23 Encounter for immunization; Z79.82 Long term (current) use of aspirin; Z79.01 Long term (current) use of anticoagulants; W19.XXXA Unspecified fall, initial encounter
CPT/HCPCS: 12005; 70450; 72125; 90471; 90715; A4216

== ENCOUNTER 2023-11-21 16:15 | Inpatient (IN) | payer MEDICARE, OTHER, SELFPAY ==
[2023-11-21] VITALS (11 sets, daily range): BP systolic 86–142; BP diastolic 44–70; PULSE 75–104; RESP 16–19; TEMP 36.2–36.8; O2SAT 94–99; BMI 31.2; BMI 30.9
[2023-11-21] MEDS: 0.9% Normal Saline (1000mL) 1,000 ML 999 ML IV (16:30)
--- NOTE | 2023-11-21 16:36 | RAD_ITS ---
INDICATION: chest pain EXAMINATION/TECHNIQUE: X-RAY - XR Chest 1 View COMPARISON: None. FINDINGS: Streaky opacities in the left lung base. Tortuous and calcified thoracic aorta. The heart is mildly enlarged. No pleural effusion or pneumothorax. Degenerative changes of the thoracic spine. RAD/Chest 1 View (Portable) IMPRESSION: Streaky opacities in the left lung base may represent atelectasis versus infection. Electronically Signed: Manuel Viera MD at 17:03 EDT ,
--- NOTE | 2023-11-21 16:36 | EKG12_ITS ---
Test Reason : FALL Blood Pressure : / mmHG Vent. Rate : 079 BPM Atrial Rate : 079 BPM P-R Int : 214 ms QRS Dur : 106 ms QT Int : 396 ms P-R-T Axes : 083 -24 102 degrees QTc Int : 454 ms Sinus rhythm with 1st degree A-V block Abnormal QRS-T angle, consider primary T wave abnormality Abnormal ECG Confirmed by CATHERINE BOWDEN, GLADIS ([id number]), publications editor VIANEY MANCILLA ([id number]) on 11/22/2023 8:24:00 AM Referred By: Confirmed By:GLADIS ALEXANDER MD
--- NOTE | 2023-11-21 16:36 | CT_ITS ---
EXAMINATION : Head CT w/out contrast HISTORY : head injury COMPARISON : 11/21/2023. TECHNIQUE : Multiple contiguous axial images were obtained from the skull base to the vertex without intravenous contrast. A radiation dose optimization technique was used for this scan. FINDINGS : There is no evidence for acute intracranial hemorrhage, mass effect, or midline shift. There is no extra-axial fluid collection. There are periventricular white matter changes consistent with chronic microvascular ischemic disease. There is sulcal widening and ventricular enlargement consistent with cerebral atrophy. There is normal tomlin-white differentiation, without CT evidence of acute ischemia or infarct. The skull base and calvarium are unremarkable. The orbits are unremarkable. Sinonasal polyp versus retention cyst in the right maxillary sinus. The mastoid air cells are well-aerated. Redemonstration of moderate left frontal parietal scalp hematoma with laceration. CT/Brain/Head without Contrast IMPRESSION: Redemonstration of moderate left frontal parietal scalp hematoma with laceration. No intracranial hemorrhage. No change from prior. Electronically Signed: Manuel Viera MD at 17:12 EDT ,
[2023-11-21 16:39] LABS: Bedside Glucose 282 mg/dL (74-106)
[2023-11-21 16:51] LABS: Absolute Lymphocyte Count 1.97 X10^3/uL (0.83-4.51); Absolute Neutrophil Count 10.4 X10^3/uL (2.0-7.7); Basophil# 0.06 X10^3/uL; Basophil% 0.4 % (0-1); Eosinophil# 0.04 X10^3/uL; Eosinophils% 0.3 % (0-5); Hematocrit 39.2 % (40-54); Hemoglobin 12.9 g/dL (13.0-16.5); Lymphocyte # 1.97 X10^3/ul (0.83-4.51); Lymphocyte % 14.5 % (19-41); Mean Corp Hgb Conc 32.9 g/dL (32-36); Mean Corpuscular Hgb 30.1 pg (27.0-32.0); Mean Corpuscular Volume 91.6 fL (80-94); Mean Platelet Vol. 10.3 fl (6.2-12.0); Monocyte# 1.04 X10^3/uL; Monocyte% 7.7 % (0-10); NRBC Flagged by Analyzer 0 % (0-5); Neutrophil # 10.38 X10^3/uL (2.7-7.7); Neutrophil % 76.6 % (47-70); Platelet Count 310 K/mm3 (150-450); RBC Distribution Width CV 13.2 % (11.6-14.6); RBC Distribution Width SD 44.2 fl (35.1-43.9); Red Blood Count 4.28 M/mm3 (4.6-6.2); White Blood Count 13.6 K/mm3 (4.4-11.0)
--- NOTE | 2023-11-21 16:51 | EX.ED.DYSGE1 ---
HPI History of Present Illness Chief Complaint: Head Injury Narrative Narrative: 88-year-old male presenting with an episode of syncope. Patient states he was just seen for a head injury and had sutures placed to his scalp for a fall which was mechanical. He states that he inadvertently put his cane on his shoe and tumbled earlier hitting his head. He states that on his way home today he got out of the car and felt lightheaded. He became sweaty and nauseous. His family caught him and he did not fall and hit his head but he complains of worsening lightheadedness/dizziness. He denies chest pain or shortness of breath. He denies nausea or vomiting. His family states he went completely out for about 30 seconds but woke up fairly abruptly. He did lose his bladder when he went out. [facility] Medical History Arthritis Atherosclerotic heart disease of [place] coronary artery without angina pectoris Back pain Cancer Cardiology follow-up encounter Dietary restriction Essential hypertension High cholesterol History of echocardiogram History of GI bleed History of stress test Hx of carcinoma in situ of rectum Hyperlipidemia Hypokalemia Insulin dependent diabetes mellitus Non-smoker Nonrheumatic mitral (valve) prolapse Presence of stent in coronary artery (~07/22/03) Rectal cancer Screening for AAA (abdominal aortic aneurysm) Stenosis of right carotid artery Umbilical hernia, incarcerated Wears dentures Wears hearing aid Home Medications aspirin 325 mg tablet 325 mg PO DAILY 09/13/18 [History Last Taken 11/21/23] blood sugar diagnostic (FreeStyle Lite Strips) #10 ea 05/04/22 [History Last Taken Unknown] insulin glargine 100 unit/mL (3 mL) subcutaneous pen (Lantus Solostar U-100 Insulin) 38 unit subcut QAM 05/04/22 [History Last Taken 11/20/23] pen needle, diabetic 31 gauge x #50 ea 05/04/22 [History Last Taken Unknown] glipizide 5 mg tablet 5 mg PO DAILY 11/24/22 [History Last Taken 11/21/23] clopidogrel 75 mg tablet 75 mg PO QDAY BLOOD THINNER #90 tabs 12/21/22 [Rx Last Taken 11/21/23] valsartan 80 mg tablet 80 mg PO DAILY #90 tabs 12/21/22 [Rx Last Taken 11/21/23] atorvastatin 40 mg tablet 40 mg PO QDAY CHOLESTEROL #90 tabs 02/10/23 [Rx Last Taken 11/21/23] isosorbide mononitrate 60 mg tablet,extended release 24 hr 60 mg PO QDAY BP #90 tabs 02/10/23 [Rx Last Taken 11/21/23] metoprolol succinate 50 mg tablet,extended release 24 hr 50 mg PO QDAY BP #90 tabs 02/10/23 [Rx Last Taken 11/21/23] nitroglycerin 0.4 mg sublingual tablet 0.4 mg sublingual Q5-15M PRN CHEST PAIN #25 tabs 02/10/23 [Rx Last Taken Unknown] triamterene 37.5 mg-hydrochlorothiazide 25 mg tablet 1 tab PO QDAY BP #90 tabs 02/10/23 [Rx Last Taken 11/21/23] potassium chloride 8 mEq capsule,extended release 8 meq PO DAILY #90 caps 02/18/23 [Rx Last Taken 11/21/23] Allergy/AdvReac Type Severity Reaction Status Date / Time No Known Allergies Allergy Verified 11/21/23 16:16 Family History Father CAD (coronary artery disease) Diabetes Sister Diabetes Hypertension Grandmother CAD (coronary artery disease) Grandfather CAD (coronary artery disease) Surgical History History of basal cell carcinoma excision History of right-sided carotid endarterectomy (~03/13/18) Hx of colonoscopy Presence of coronary angioplasty implant and graft (~07/22/03) Social History (Updated 11/21/23 @ 21:33 by Shaniqua Monge) household members: none housing: condominium Smoking Status: Never smoker alcohol intake: never substance use type: does not use ROS ROS ED Constitutional Constitutional ED: Denies chills or fever(s) Eyes Eyes: Denies change in vision or diplopia ENT ENT ED: Denies rhinorrhea or sore throat Cardiovascular Cardiovascular: Denies chest pain or palpitations Respiratory/Chest Respiratory/Chest: Denies cough or dyspnea Gastrointestinal Gastrointestinal: Denies abdominal pain, nausea or vomiting Genitourinary Genitourinary ED: Denies dysuria or hematuria Musculoskeletal Musculoskeletal: Denies arthralgias Integumentary Denies abscess Neurologic Neurologic: Reports headache(s) Psychiatric Psychiatric: Denies anxiety or depression EXAM Physical Exam Const Vital Signs: 11/21/23 16:16 11/21/23 16:28 11/21/23 16:36 Temperature 97.2 F L Temperature Source Temporal Pulse Rate 84 Respiratory Rate 16 Respiratory Effort Normal Respiratory Depth Normal Blood Pressure 120/63 Blood Pressure Mean 82 Pulse Ox 96 Oxygen Delivery Method Room Air Room Air Room Air 11/21/23 16:41 11/21/23 17:15 11/21/23 17:49 Temperature Temperature Source Pulse Rate 76 75 84 Respiratory Rate 16 16 16 Respiratory Effort Respiratory Depth Blood Pressure 97/44 L 101/50 L 134/63 H Blood Pressure Mean 61 67 86 Pulse Ox 97 97 98 Oxygen Delivery Method Room Air Room Air Room Air 11/21/23 18:00 11/21/23 18:57 11/21/23 19:00 Temperature Temperature Source Pulse Rate 79 86 82 Respiratory Rate 18 16 16 Respiratory Effort Respiratory Depth Blood Pressure 133/65 H 142/66 H 141/62 H Blood Pressure Mean 87 91 88 Pulse Ox 96 94 98 Oxygen Delivery Method Room Air Positive well nourished General Appearance ED: NAD HEENT Reports TM's clear and moist mucous membranes Tympanic Membrane ED: Yes TM's clear Eyes PERRL and EOMs intact bilaterally Chest Wall inspection of chest normal Resp normal respiratory effort and clear to auscultation bilaterally Auscultation: Negative for rales, rhonchi or wheezes Cardio regular rate and regular rhythm GI normal to inspection, nondistended, normoactive bowel sounds Neuro oriented x3, CN's II-XII intact bilaterally and no sensory deficits noted Sensorium / Orientation: alert Motor Exam: strength 5/5 throughout Psych mental status grossly normal Skin General Skin Exam: Negative for jaundice MDM MDM MDM Narrative Medical decision making narrative: Patient with syncope after just being seen for a mechanical fall with head injury. Differential includes delayed intracranial bleed, dehydration, anemia, hypoglycemia, vasovagal syncope, acute blood loss anemia, CHF, pneumonia, electrolyte abnormalities, ACS, CHF. CBC was obtained to assess for blood cell count, hemoglobin, platelets. BMP to assess renal function electrolytes, glucose. EKG and high-sensitivity troponin to assess for ischemia/dysrhythmia. Chest x-ray to rule out pneumonia or CHF. CT brain will be obtained to rule out delayed intracranial bleeding. Patient currently awake and oriented with no acute distress. CT brain was obtained and negative. Chest x-ray shows atelectasis on my interpretation. Radiology interprets this as atelectasis versus infiltrate. Patient has not had any respiratory symptoms recently. He has not had any systemic signs or symptoms. Patient's white blood cell count is slightly elevated at 13.6 however suspect this is likely reactive. Hemoglobin 12.9 which is low for him and his hemoglobin is usually around 16. I suspect this is likely from the scalp laceration today. In addition to this the patient has acute kidney injury with a creatinine of 2.19 his baseline is around 1.33 at last check. BNP 126 with slightly elevated and troponin is normal at 46. EKG on my interpretation shows a sinus rhythm at 79 bpm with first-degree AV block without evidence of ischemia. Given the patient's anemia, dehydration, syncope I recommended admission. Discussed with hospitalist. Impression: 1. Acute blood loss anemia 2. Acute kidney injury 3. Syncope Lab Data Attestation: I reviewed the patient's lab results. Labs: Laboratory Results - last 24 hr 11/21/23 11/21/23 16:21 16:40 WBC 13.6 H RBC 4.28 L Hgb 12.9 L Hct 39.2 L MCV 91.6 MCH 30.1 MCHC 32.9 RDW Std Deviation 44.2 H RDW Coeff of Christiano 13.2 Plt Count 310 MPV 10.3 Immature Gran % (Auto) 0.500 Neut % (Auto) 76.6 H Lymph % (Auto) 14.5 L [place] % (Auto) 7.7 Eos % (Auto) 0.3 Baso % (Auto) 0.4 Absolute Neuts (auto) 10.4 H Absolute Lymphs (auto) 1.97 Nucleated RBC % 0 Sodium 136 Potassium 3.4 L Chloride 102 Carbon Dioxide 21.0 Anion Gap 13 BUN 28 H Creatinine 2.19 H Estim Creat Clear Calc 27.99 Est GFR (MDRD) Af Amer 37 L Est GFR (MDRD) Non-Af 30 L BUN/Creatinine Ratio 12.8 Glucose 325 H Calcium 9.1 Magnesium 2.3 Troponin I High Sens 46 B-Natriuretic Peptide 126.0 H POC Glucose 282 H Radiography Diagnostic Testing: Clinical Impression(s) from Imaging Studies Brain CT 11/21/23 16:36 IMPRESSION: Redemonstration of moderate left frontal parietal scalp hematoma with laceration. No intracranial hemorrhage. No change from prior. Electronically Signed: Manuel Viera MD at 17:12 EDT , Chest X-Ray 11/21/23 16:36 IMPRESSION: Streaky opacities in the left lung base may represent atelectasis versus infection. Electronically Signed: Manuel Viera MD at 17:03 EDT , Discharge Plan Disposition Disposition: Acute Care Hospital [facility] Discharge Date/Time: 11/21/23 20:37
[2023-11-21 17:13] LABS: Anion Gap 13 (5-15); BUN 28 mg/dL (7-18); BUN/Creat Ratio 12.8 RATIO (10-20); Calcium,Total 9.1 mg/dL (8.5-10.1); Chloride 102 mmol/L (98-107); Creatinine, Serum 2.19 mg/dL (0.70-1.30); EST Glomerular Filtration Rate 30 mL/min (>60); Est Glom Filt Rate - Afr Amer 37 mL/min (>60); Estimated Creatinine Clearance 27.99 ml/min; Glucose 325 mg/dL (74-106); Potassium 3.4 mmol/L (3.5-5.1); Sodium Level 136 mmol/L (136-145); Troponin-I HS 46 pg/mL (3.0-78.0)
[2023-11-21] MEDS: Acetaminophen 500 MG Tablet 1000 MG PO (18:54)
--- NOTE | 2023-11-21 19:02 | PCM.HP.STD ---
HPI - General General Date of Admission: 11/21/23 Date of Service: 11/21/23 Chief Complaint: Syncopal event HPI Narrative The patient is an 88 y/o M w/ PMHx: Carotid disease, HTN, HLD, CAD s/p PCI, GERD w/ Hx GI bleed, IDDM who re-presents to the [facility] ED on 11/21/2023 with syncopal event recently having been seen for head injury with sutures placed on his scalp but at that time the fall had been mechanical as he had inadvertently placed his cane on his shoe and was attempting to walk prompting him to fall on his head however on his way home following this evaluation when he got out of the car he became lightheaded, diaphoretic and nauseous beginning to fall however his family caught him and per family reportedly had been out for approximately 30 seconds but awoke abruptly and was appropriate although he did lose his bladder but given this presentation and concerns for him caring for himself prompted reevaluation in the ED. Workup in the ED included T97.2, heart rate 84, BP 120/63 decreasing down to 97/44 with most recent repeat 133/65, respiratory rate 16, 96% on room air, CBC with WBC 13.6, hemoglobin 12.9, MCV 91.6, platelet 310 with left shift, BMP with potassium 3.4, BUN/creatinine 28/2.19, GFR 30, glucose 325, troponin 46, BNP 126, CT of the brain with redemonstration of moderate left frontal parietal scalp hematoma with laceration with no intracranial hemorrhage unchanged from prior, chest x-ray with streaky opacities in the left lung base possibly atelectasis, EKG with with SR with 1 degree AVB. In the ED patient ministered 1 L normal saline as well as Tylenol 1000 mg p.o. x 1. [facility] Medical History Arthritis Atherosclerotic heart disease of [place] coronary artery without angina pectoris Back pain Cancer Cardiology follow-up encounter Dietary restriction Essential hypertension High cholesterol History of echocardiogram History of GI bleed History of stress test Hx of carcinoma in situ of rectum Hyperlipidemia Hypokalemia Insulin dependent diabetes mellitus Non-smoker Nonrheumatic mitral (valve) prolapse Presence of stent in coronary artery (~12/15/03) Rectal cancer Screening for AAA (abdominal aortic aneurysm) Stenosis of right carotid artery Umbilical hernia, incarcerated Wears dentures Wears hearing aid Home Medications aspirin 325 mg tablet 325 mg PO DAILY 09/13/18 [History Last Taken 11/21/23] blood sugar diagnostic (FreeStyle Lite Strips) #10 ea 05/04/22 [History Last Taken Unknown] insulin glargine 100 unit/mL (3 mL) subcutaneous pen (Lantus Solostar U-100 Insulin) 38 unit subcut QAM 05/04/22 [History Last Taken 11/20/23] pen needle, diabetic 31 gauge x #50 ea 05/04/22 [History Last Taken Unknown] glipizide 5 mg tablet 5 mg PO DAILY 11/24/22 [History Last Taken 11/21/23] clopidogrel 75 mg tablet 75 mg PO QDAY BLOOD THINNER #90 tabs 12/21/22 [Rx Last Taken 11/21/23] valsartan 80 mg tablet 80 mg PO DAILY #90 tabs 12/21/22 [Rx Last Taken 11/21/23] atorvastatin 40 mg tablet 40 mg PO QDAY CHOLESTEROL #90 tabs 02/10/23 [Rx Last Taken 11/21/23] isosorbide mononitrate 60 mg tablet,extended release 24 hr 60 mg PO QDAY BP #90 tabs 02/10/23 [Rx Last Taken 11/21/23] metoprolol succinate 50 mg tablet,extended release 24 hr 50 mg PO QDAY BP #90 tabs 02/10/23 [Rx Last Taken 11/21/23] nitroglycerin 0.4 mg sublingual tablet 0.4 mg sublingual Q5-15M PRN CHEST PAIN #25 tabs 02/10/23 [Rx Last Taken Unknown] triamterene 37.5 mg-hydrochlorothiazide 25 mg tablet 1 tab PO QDAY BP #90 tabs 02/10/23 [Rx Last Taken 11/21/23] potassium chloride 8 mEq capsule,extended release 8 meq PO DAILY #90 caps 02/18/23 [Rx Last Taken 11/21/23] Allergy/AdvReac Type Severity Reaction Status Date / Time No Known Allergies Allergy Verified 11/21/23 16:16 Family History Father CAD (coronary artery disease) Diabetes Sister Diabetes Hypertension Grandmother CAD (coronary artery disease) Grandfather CAD (coronary artery disease) Surgical History History of basal cell carcinoma excision History of right-sided carotid endarterectomy (~03/13/18) Hx of colonoscopy Presence of coronary angioplasty implant and graft (~07/22/03) Social History household members: none Smoking Status: Never smoker alcohol intake: never substance use type: does not use ROS ROS Narrative Admission Review of Systems: CONSTITUTIONAL: No weight loss, fever, chills, + weakness or fatigue. HEENT: + Lightheadedness/dizziness. Eyes: No visual loss, blurred vision, double vision or yellow sclerae. Ears, Nose, Throat: No hearing loss, sneezing, congestion, runny nose or sore throat. SKIN: No rash or itching, lesions, wounds except + laceration to the L scalp and abrasions/lacerations to the UE s/p fall. CARDIOVASCULAR: + LH/dizziness, syncopal event. No chest pain, chest pressure or chest discomfort, palpitations, edema, orthopnea. RESPIRATORY: No shortness of breath, cough or sputum, wheezing, hemoptysis. GASTROINTESTINAL: No anorexia, nausea, vomiting or diarrhea, abdominal pain, melena, BRBPR. GENITOURINARY: No dysuria, frequency, urgency or retention. NEUROLOGICAL: + headache, dizziness, lightheadedness, syncope. Loss of bladder with syncopal event. No paralysis, ataxia, numbness or tingling in the extremities, focal weakness, change in bowel control, seizure. MUSCULOSKELETAL: + muscle, back pain, joint pain or stiffness. HEMATOLOGIC: +anemia, bleeding, easy bruising. LYMPHATICS: No enlarged nodes. No history of splenectomy. PSYCHIATRIC: No history of depression or anxiety. ENDOCRINOLOGIC: No reports of sweating, cold or heat intolerance. No polyuria or polydipsia. ALLERGIES: No history of asthma, hives, eczema or rhinitis. Vital Signs Vital Signs Vital Signs: 11/21/23 16:16 11/21/23 16:28 11/21/23 16:36 Temperature 97.2 F L Temperature Source Temporal Pulse Rate 84 Respiratory Rate 16 Respiratory Effort Normal Respiratory Depth Normal Blood Pressure 120/63 Blood Pressure Mean 82 Pulse Ox 96 Oxygen Delivery Method Room Air Room Air Room Air 11/21/23 16:41 11/21/23 17:15 11/21/23 17:49 Temperature Temperature Source Pulse Rate 76 75 84 Respiratory Rate 16 16 16 Respiratory Effort Respiratory Depth Blood Pressure 97/44 L 101/50 L 134/63 H Blood Pressure Mean 61 67 86 Pulse Ox 97 97 98 Oxygen Delivery Method Room Air Room Air Room Air 11/21/23 18:00 11/21/23 18:57 Temperature Temperature Source Pulse Rate 79 86 Respiratory Rate 18 16 Respiratory Effort Respiratory Depth Blood Pressure 133/65 H 142/66 H Blood Pressure Mean 87 91 Pulse Ox 96 94 Oxygen Delivery Method Weight Weight: 217 lb 9.54 oz Body Mass Index (BMI) 31.2 Physical Exam Narrative Physical Examination: General: Awake, alert, oriented x 3 and cooperative, seated upright in the ED bed, fatigued but seated upright and conversive, mild headache reported. Skin: Normal color, normal turgor, no icterus, no cyanosis except for significant staged ecchymoses, abrasions to the upper extremities, notable laceration to the left forehead and scalp with suturing in place. HEENT: Traumatic as noted in skin section/NC, EOMI, PERRLA, moderately dry MM, no carotid bruits or JVD noted. Lungs: Mildly diminished, greater BL bases, appropriate effort, no rales, ronchi or wheezing. Heart: Regular rate and rhythm; no gallop, rub audible. Abdomen: Soft, obese, NTTP, ND, mildly hyperactive BS, no appreciated HSM. Extremities: No cyanosis, clubbing, or edema, see skin. Neurological: Patient awake, alert, oriented as noted, cognitive function intact; pupils equally reactive to light and accommodation, cranial nerves grossly normal, moving all 4 extremities, no focal deficits, strength moderately to severely globally decreased secondary to acute presentation. Psychiatric: Affect appears fatigued otherwise normal, no acute evidence of depressive or anxiety feelings. Results Lab / Micro Data 11/21/23 16:40 11/21/23 16:40 Labs: Laboratory Results - last 24 hr 11/21/23 16:21: POC Glucose 282 H 11/21/23 16:40: WBC 13.6 H, RBC 4.28 L, Hgb 12.9 L, Hct 39.2 L, MCV 91.6, MCH 30.1, MCHC 32.9, RDW Std Deviation 44.2 H, RDW Coeff of Christiano 13.2, Plt Count 310, MPV 10.3, Immature Gran % (Auto) 0.500, Neut % (Auto) 76.6 H, Lymph % (Auto) 14.5 L, [place] % (Auto) 7.7, Eos % (Auto) 0.3, Baso % (Auto) 0.4, Absolute Neuts (auto) 10.4 H, Absolute Lymphs (auto) 1.97, Nucleated RBC % 0, Sodium 136, Potassium 3.4 L, Chloride 102, Carbon Dioxide 21.0, Anion Gap 13, BUN 28 H, Creatinine 2.19 H, Estim Creat Clear Calc 27.99, Est GFR (MDRD) Af Amer 37 L, Est GFR (MDRD) Non-Af 30 L, BUN/Creatinine Ratio 12.8, Glucose 325 H, Calcium 9.1, Troponin I High Sens 46, B-Natriuretic Peptide 126.0 H Imaging Radiology Impression Brain CT 11/21/23 16:36 IMPRESSION: Redemonstration of moderate left frontal parietal scalp hematoma with laceration. No intracranial hemorrhage. No change from prior. Electronically Signed: Manuel Viera MD at 17:12 EDT , Chest X-Ray 11/21/23 16:36 IMPRESSION: Streaky opacities in the left lung base may represent atelectasis versus infection. Electronically Signed: Manuel Viera MD at 17:03 EDT , Assessment & Plan Assessment/Plan (1) Syncope: PLAN: Plan The patient is an 88 y/o M w/ PMHx: Carotid disease, HTN, HLD, CAD s/p PCI, GERD w/ Hx GI bleed, IDDM who re-presents to the [facility] ED on 11/21/2023 with syncopal event recently having been seen for head injury with sutures placed on his scalp but at that time the fall had been mechanical as he had inadvertently placed his cane on his shoe and was attempting to walk prompting him to fall on his head however on his way home following this evaluation when he got out of the car he became lightheaded, diaphoretic and nauseous beginning to fall however his family caught him and per family reportedly had been out for approximately 30 seconds but awoke abruptly and was appropriate although he did lose his bladder but given this presentation and concerns for him caring for himself prompted reevaluation in the ED. #1. Syncopal Event following recent mechanical fall with trauma to the head suspected related with possible concussive process with symptomatic acute blood loss anemia associated with injury: EKG in ED w/ sinus rhythm without evidence of acute ischemia, CT of the brain with re-demonstration of moderate left frontal parietal scalp hematoma with laceration with no acute intracranial findings or changes since recent presentation, initial trop normal, 11/21/2023 hemoglobin 12.9 and most recently prior to this 11/23/2022 hemoglobin 16 which appears patient's baseline. Will admit to PCU, place on a monitored bed to assure no acute myocardial infarction with serial cardiac enzymes and EKGs. Will obtain orthostatics to be cautious. Will maintain on fall precautions, will judiciously hydrate. Will obtain repeat HH x 2 this evening q 4 to assure to further Hgb drop. Will temporarily hold aspirin and Plavix following recent injury and fall but immediately assess in a.m. and if no obvious bleeding and stable hemoglobin immediately resume given CAD history status post PCI and carotid endarterectomy status. Continue dressings to the scalp. Do suspect blood loss is likely related to patient's presentation and pending repeat level in a.m. low threshold to administer PRBC if felt appropriate however currently vital signs stable thus will defer immediate but will await orthostatics. PT/OT/case management consulted for discharge planning. Of note sutures placed in the ED on 11/21/2023 should be removed in 7 to 10 days. #2. Acute kidney injury on CKD stage III unclear subtype: Secondary to #1 with sudden acute blood loss anemia and possible progressing renal disease. Admission BUN/Cr 28/2.19, GFR 30, prior baseline creatinine noted to be 1.1-1.4, will hydrate, hold nephrotoxic medications and repeat chemistry in AM, obtain FeNa assessment. If no improving will investigate further with possibly renal US/nephrology involvement if appropriate. #3. Hypokalemia: Admission K+ 3.4, magnesium level requested, supplementation given, repeat level in AM. #4. Carotid disease: Status post carotid endarterectomy, right side, given mechanical fall with significant hematoma will temporally hold aspirin and Plavix today with reassessment of the scalp and if appropriate resume in a.m., continue patient metoprolol, valsartan, statin therapy #5. CAD: Status post PCI, will temporarily hold aspirin and Plavix however if no bleeding evident and stable hemoglobin will resume in a.m. immediately given underlying history of previous carotid endarterectomy as well as PCI, continue statin as well as metoprolol as BP allows. #6. Diabetes mellitus type II: Hold oral home regimen, continue home insulin regimen, ADA diet, accu checks w/ ISS. #7. Hypertension: Patient with noted history however upon the. Presentation BP low normal although did improve, will very cautiously continue patient home metoprolol, holding valsartan and diuretic therapy given ABIOLA. Orthostatics requested. #8. Hyperlipidemia: Will continue patient on statin therapy. #9. GERD with history GI bleed: Per current list does not appear to be on regimen, as needed Mylanta. #10. DVT prophylaxis: SCDs. #11. CODE status: Patient LYN is his good friend Leonardo and his friend's Skye and living will is currently in place. Discussed CODE status at length including difference between FULL code, DNR-CCA and DNR-CC status. Following discussions about the differences in these status, requested Full Code status. Advanced Care Planning Face to Face Time: 16 minutes. Charges/Coding Visit Charges Inpatient E&M: 47616 Init Hosp L3 Procedures Hospitalists Procedures: 24006 Advncd Care Plan 30 Min
[2023-11-21 20:35] LABS: Magnesium 2.3 mg/dL (1.6-2.6)
[2023-11-21] MEDS: 0.9% Saline Lock 10 ML Syringe IV (22:20)
[2023-11-21] MEDS: 0.9% Normal Saline (1000mL) 1,000 ML 100 ML IV (22:20)
[2023-11-21] MEDS: Potassium Chloride Oral Tablet 20 MEQ 40 MEQ PO (22:29)
[2023-11-21] MEDS: Insulin Lispro 100 UNIT/ML INSULN.PEN SC (22:29)
[2023-11-21] MEDS: Atorvastatin Calcium 40 MG Tablet PO (22:30)
[2023-11-21 22:42] LABS: Bedside Glucose 241 mg/dL (74-106)
[2023-11-21 22:47] LABS: Troponin-I HS 912 pg/mL (3.0-78.0)
[2023-11-21 23:52] LABS: Urine Sodium 55 mmol/L (Not Establ.)
[2023-11-22] VITALS (7 sets, daily range): BP systolic 111–136; BP diastolic 50–70; PULSE 68–82; RESP 16–18; TEMP 36.6–37.1; O2SAT 94–100; BMI 31.1
[2023-11-22 01:11] LABS: Troponin-I HS 1446 pg/mL (3.0-78.0)
--- NOTE | 2023-11-22 01:15 | ECHOCS_ITS ---
Reason For Study: CORONARY ARTERY DISEASE Procedure This was a 2D Doppler, Color Flow transthoracic echocardiogram. The study was technically difficult. Contrast injection was performed. Exam performed portable in patient room. Left Ventricle Normal LV size. Moderate eccentric left ventricular hypertrophy. Left ventricular systolic function is normal. The left ventricular ejection fraction is 60 %. Stage 1 diastolic dysfunction. No regional wall motion abnormalities noted. Right Ventricle Normal RV size. Normal systolic function. Atria Normal left atrium. Normal right atrium. Mitral Valve Normal mitral valve. Tricuspid Valve Normal tricuspid valve. Aortic Valve Trisinus/trileaflet aortic valve. Pulmonic Valve The pulmonic valve is not well visualized. Great Vessels Normal aortic root. The pulmonary is not well visualized. Inferior vena cava collapse with respiration. Pericardium/Pleural No pericardial effusion. Medication Diluted definity 2.5ml given slow IV push to enhance endocardial definition. MMode/2D Measurements & Calculations LVIDd: 4.6 cm IVSd: 1.6 cm LVOT diam: 2.2 cm LVIDs: 2.7 cm LVPWd: 1.0 cm RVDd: 3.1 cm FS: 40.9 % LVOT area: 3.9 cm2 Ao root diam: 3.5 cm LAV(MOD-bp): 52.5 ml LVAd ap4: 28.5 cm2 LAV(MOD-bp) Indexed: 24.4 ml/m2 LVLd ap4: 8.1 cm LAV(MOD-sp2): 71.2 ml EDV(MOD-sp4): 87.9 ml LAV(MOD-sp4): 38.5 ml EDV(sp4-el): 85.3 ml LVAs ap4: 17.0 cm2 LVLs ap4: 7.0 cm ESV(MOD-sp4): 37.7 ml ESV(sp4-el): 35.0 ml EF(MOD-sp4): 57.1 % EF(sp4-el): 58.9 % LVAd ap2: 24.9 cm2 SV(MOD-sp4): 50.2 ml SV(MOD-sp2): 37.7 ml LVLd ap2: 8.5 cm EDV(MOD-sp2): 61.8 ml EDV(sp2-el): 61.6 ml LVAs ap2: 13.5 cm2 LVLs ap2: 6.6 cm ESV(MOD-sp2): 24.2 ml ESV(sp2-el): 23.6 ml EF(MOD-sp2): 60.9 % SV(sp4-el): 50.3 ml LA dimension(2D): 4.1 cm LA A4 area: 15.2 cm2 RA A4 area: 7.1 cm2 TAPSE: 1.5 cm Time Measurements MV dec time: 0.20 sec Doppler Measurements & Calculations MV E max antoni: 73.9 cm/sec Lat Peak E' Antoni: 9.8 cm/sec Med Peak E' Antoni: 4.4 cm/sec MV A max antoni: 105.3 cm/sec E/E' lat: 7.6 E/E' med: 16.9 MV E/A: 0.70 Ao V2 max: 194.1 cm/sec LV V1 max: 97.1 cm/sec MV dec slope: 361.7 cm/sec2 Ao max P.1 mmHg LV V1 max P.8 mmHg Ao V2 mean: 151.1 cm/sec LV V1 mean P.5 mmHg Ao mean P.7 mmHg LV V1 mean: 77.9 cm/sec Ao V2 VTI: 41.8 cm LV V1 VTI: 21.6 cm AV (velocity ratio): 0.52 SAGRARIO(I,D): 2.0 cm2 SAGRARIO(V,D): 2.0 cm2 SV(LVOT): 84.9 ml PA V2 max: 137.4 cm/sec PA max PG (full): 2.1 mmHg ECHO/Echo Complete W/ Contrast Interpretation Summary Normal LV size. The left ventricular ejection fraction is 60 %. Left ventricular systolic function is normal. Stage 1 diastolic dysfunction. Contrast injection was performed. Ordering Physician: Tj Bowles Referring Physician: Vipul Zamora Performed By: Janice Lowery RDCS
--- NOTE | 2023-11-22 01:20 | PCM.PN.BLA ---
Progress Note Troponin is climbing, will start him on a heparin drip without any bolus given his scalp hematoma though there is no intracranial bleeding. He does have a cardiac history so we will also obtain an echo given that he is here for syncope and his orthostatic. There is an H&H pending currently which may adjust plans. Will also place a consult for cardiology to see in the morning. No chest pain noted
[2023-11-22 01:24] LABS: Hemoglobin 12.1 g/dL (13.0-16.5)
[2023-11-22 02:08] LABS: Absolute Lymphocyte Count 1.29 X10^3/uL (0.83-4.51); Absolute Neutrophil Count 10.7 X10^3/uL (2.0-7.7); Basophil# 0.02 X10^3/uL; Basophil% 0.2 % (0-1); Hematocrit 34.7 % (40-54); Hemoglobin 11.9 g/dL (13.0-16.5); Lymphocyte # 1.29 X10^3/ul (0.83-4.51); Lymphocyte % 9.8 % (19-41); Mean Corp Hgb Conc 34.3 g/dL (32-36); Mean Corpuscular Hgb 30.9 pg (27.0-32.0); Mean Corpuscular Volume 90.1 fL (80-94); Mean Platelet Vol. 9.9 fl (6.2-12.0); Monocyte# 1.16 X10^3/uL; Monocyte% 8.8 % (0-10); NRBC Flagged by Analyzer 0 % (0-5); Neutrophil # 10.68 X10^3/uL (2.7-7.7); Neutrophil % 80.9 % (47-70); Platelet Count 225 K/mm3 (150-450); RBC Distribution Width CV 13.2 % (11.6-14.6); RBC Distribution Width SD 42.7 fl (35.1-43.9); Red Blood Count 3.85 M/mm3 (4.6-6.2); White Blood Count 13.2 K/mm3 (4.4-11.0)
[2023-11-22 02:27] LABS: International Normalized Ratio 1.2; Prothrombin Time (Protime)PT. 14.8 SECONDS (11.7-14.9)
[2023-11-22 02:28] LABS: Partial Thromboplast Time 22.8 Seconds (24.1-36.2)
[2023-11-22 02:33] LABS: AST(SGOT) 23 U/L (15-37); Alanine Aminotransfer ALT/SGPT 24 U/L (16-61); Albumin, Serum 2.9 g/dL (3.2-5.0); Alkaline Phosphatase 86 U/L (45-117); Anion Gap 9 (5-15); BUN 26 mg/dL (7-18); BUN/Creat Ratio 14.8 RATIO (10-20); Calcium,Total 8.3 mg/dL (8.5-10.1); Chloride 106 mmol/L (98-107); Creatinine, Serum 1.76 mg/dL (0.70-1.30); EST Glomerular Filtration Rate 39 mL/min (>60); Est Glom Filt Rate - Afr Amer 47 mL/min (>60); Glucose 210 mg/dL (74-106); Protein, Total 5.9 g/dL (6.4-8.2); Sodium Level 138 mmol/L (136-145)
[2023-11-22] MEDS: HEPARIN/D5w 25,000 UNITS 25,000 UNITS/250 ML IV.SOLN. 12 UNITS CONT INF (03:04)
[2023-11-22 04:57] LABS: Troponin-I HS 1624 pg/mL (3.0-78.0)
[2023-11-22] MEDS: Insulin Lispro 100 UNIT/ML INSULN.PEN SC ×4 (06:24→21:17)
[2023-11-22 06:55] LABS: Bedside Glucose 172 mg/dL (74-106)
--- NOTE | 2023-11-22 07:40 | PCM.CONS.C ---
Assessment & Plan Assessment/Plan (1) NSTEMI (non-ST elevated myocardial infarction): PLAN: He does have a non-ST elevation myocardial infarction. The etiology is unclear as to whether this is primary or secondary. At this particular time due to his laceration I will hold off on intravenous heparin Continue aspirin Continue beta-luan Continue high intensity statin Obtain an echocardiogram Further recommendations as to invasive therapy will be decided within the next 24 to 48 hours. (2) Syncope: PLAN: It appears that he is dehydrated and has orthostatic symptoms. I suspect this may be the cause of his syncope. Another cardiac etiology cannot be completely excluded. An echocardiogram may evaluate his ventricular function I would recommend that he continue with intravenous fluids for now. (3) Hypertension: PLAN: His blood pressure is under fair control on the current medical therapy. (4) Atherosclerotic heart disease of [place] coronary artery without angina pectoris: QUALIFIERS: [place] vs. transplanted heart: [place] heart Qualified Code(s): I25.10 - Atherosclerotic heart disease of [place] coronary artery without angina pectoris PLAN: He does have evidence of coronary artery disease as noted above status post angioplasty of the right coronary artery. This may need to be reevaluated with his level of cardiac enzyme elevation. (5) Hyperlipidemia: QUALIFIERS: Hyperlipidemia type: unspecified Qualified Code(s): E78.5 - Hyperlipidemia, unspecified PLAN: He will continue on high intensity statin is a highly functional 88-year-old. (6) History of right-sided carotid endarterectomy: PLAN: He will continue with risk factor modification status post right carotid endarterectomy. Thank you for allowing me to participate in the care of your patient. Please don't hesitate to call if any issues arise. HPI Consult Data Date of Consult: 11/22/23 HPI Narrative HPI Narrative: ROBER CHAVEZ, is a 88 M who presents to the emergency room after experiencing a fall and suffering a laceration of his head. It is not clear from his description whether he actually had a syncopal episode. It appears that he was getting up from the seated position and got mildly dizzy and then felt that he was going to fall into his bookcase which he did and unfortunately hit his head. There was no chest pain prior to the above. He has had episodes of dizziness when he has gotten up quickly from the seated position. Is not had any chest pain or paroxysmal nocturnal dyspnea or palpitations. He does have a previous history of hypertension under good control, coronary artery disease status post PCI over 20 years ago and diabetes mellitus. He had previously followed up in the heart group. On presentation to the emergency room he was noted to have normal sinus rhythm cardiac enzymes were initially abnormal but repeat cardiac enzymes demonstrated elevation and he was placed on heparin. Cardiology was called for further evaluation and management. [facility] Medical History Arthritis Atherosclerotic heart disease of [place] coronary artery without angina pectoris Back pain Cancer Cardiology follow-up encounter Dietary restriction Essential hypertension High cholesterol History of echocardiogram History of GI bleed History of stress test Hx of carcinoma in situ of rectum Hyperlipidemia Hypokalemia Insulin dependent diabetes mellitus Non-smoker Nonrheumatic mitral (valve) prolapse Presence of stent in coronary artery (~07/22/03) Rectal cancer Screening for AAA (abdominal aortic aneurysm) Stenosis of right carotid artery Umbilical hernia, incarcerated Wears dentures Wears hearing aid Home Medications aspirin 325 mg tablet 325 mg PO DAILY 09/13/18 [History Last Taken 11/21/23] blood sugar diagnostic (FreeStyle Lite Strips) #10 ea 05/04/22 [History Last Taken Unknown] insulin glargine 100 unit/mL (3 mL) subcutaneous pen (Lantus Solostar U-100 Insulin) 38 unit subcut QAM 05/04/22 [History Last Taken 11/20/23] pen needle, diabetic 31 gauge x 15/64 #50 ea 05/04/22 [History Last Taken Unknown] glipizide 5 mg tablet 5 mg PO DAILY 11/24/22 [History Last Taken 11/21/23] clopidogrel 75 mg tablet 75 mg PO QDAY BLOOD THINNER #90 tabs 12/21/22 [Rx Last Taken 11/21/23] valsartan 80 mg tablet 80 mg PO DAILY #90 tabs 12/21/22 [Rx Last Taken 11/21/23] atorvastatin 40 mg tablet 40 mg PO QDAY CHOLESTEROL #90 tabs 02/10/23 [Rx Last Taken 11/21/23] isosorbide mononitrate 60 mg tablet,extended release 24 hr 60 mg PO QDAY BP #90 tabs 02/10/23 [Rx Last Taken 11/21/23] metoprolol succinate 50 mg tablet,extended release 24 hr 50 mg PO QDAY BP #90 tabs 02/10/23 [Rx Last Taken 11/21/23] nitroglycerin 0.4 mg sublingual tablet 0.4 mg sublingual Q5-15M PRN CHEST PAIN #25 tabs 02/10/23 [Rx Last Taken Unknown] triamterene 37.5 mg-hydrochlorothiazide 25 mg tablet 1 tab PO QDAY BP #90 tabs 02/10/23 [Rx Last Taken 11/21/23] potassium chloride 8 mEq capsule,extended release 8 meq PO DAILY #90 caps 02/18/23 [Rx Last Taken 11/21/23] Allergy/AdvReac Type Severity Reaction Status Date / Time No Known Allergies Allergy Verified 11/21/23 16:16 Family History Father CAD (coronary artery disease) Diabetes Sister Diabetes Hypertension Grandmother CAD (coronary artery disease) Grandfather CAD (coronary artery disease) Surgical History History of basal cell carcinoma excision History of right-sided carotid endarterectomy (~03/13/18) Hx of colonoscopy Presence of coronary angioplasty implant and graft (~07/22/03) Social History household members: none housing: condominium Smoking Status: Never smoker alcohol intake: never substance use type: does not use ROS Constitutional Constitutional: Denies fever(s) or weight loss Eyes Eyes: Reports systems reviewed and no addt'l complaints, except as documented ENT HEENT: Reports systems reviewed and no addt'l complaints, except as documented Cardiovascular Cardiovascular: Denies chest pain at rest, chest pain with activity, dyspnea at rest, dyspnea on exertion, edema, palpitations or paroxysmal nocturnal dyspnea Respiratory/Chest Respiratory/Chest: Denies dyspnea on exertion, productive cough, shortness of breath at rest or shortness of breath with exertion Gastrointestinal Gastrointestinal: Denies change in bowel habits, nausea, vomiting or weight changes Genitourinary Genitourinary: Denies difficulty urinating Musculoskeletal Musculoskeletal: Denies joint stiffness or muscle weakness Integumentary Integumentary: Denies lesions Neurologic Neurologic: Denies dizziness or syncope Psychiatric Psychiatric: Denies anxiety Endocrine Endocrinology: Denies excessive sweating or fatigue Hematologic/Lymphatic Hematologic/Lymphatic: Denies anemia Allergic/Immunologic Allergic/Immunologic: Denies seasonal rhinorrhea Physical Exam Const alert, oriented x3 and no apparent distress General Appearance: cooperative HEENT hearing grossly normal bilaterally Head and Scalp: atraumatic Eyes EOMs intact bilaterally Neck General: normal visual inspection Chest inspection of chest normal and palpation of chest normal Resp normal respiratory effort Auscultation: clear to auscultation bilaterally Cardio regular rate, regular rhythm, S1 normal heart sound and S2 normal heart sound Jugular Venous Distention: JVD GI normal to inspection, nondistended, normoactive bowel sounds Extremity normal capillary refill and no pedal edema Peripheral Pulses: Yes pulses 2+ throughout and femoral pulses present Skin no rashes or lesions noted Neuro oriented x3 and CN's II-XII intact bilaterally Psych Appearance: grossly normal and appropriate Risk Stratification Risk Stratification Applicable: Yes Age >/= 65: Yes >/= 3 CAD Risk Factors (HTN, HLD, DM, family hx of CAD, or current smoker): Yes Aspirin Use in the Past 7 Days: Yes Severe Angina (>/= episodes in 24 hours): No EKG ST Changes >/= 0.5mm: No Positive Cardiac Marker: Yes JOYCELYN Risk Stratification Score: 4 JOYCELYN % Risk: 20% Risk Objective Data Vital Signs: Vital Signs Temp Pulse Resp BP Pulse Ox O2 Del Method 98.1 F 71 16 120/50 L 100 Room Air 11/22/23 02:58 11/22/23 02:58 11/22/23 02:58 11/22/23 02:58 11/22/23 02:58 11/22/23 02:58 Oxygen Delivery Method Room Air Weight: 216 lb 11.43 oz Body Mass Index (BMI) 31.1 Intake & Output: Intake and Output for Last 24 Hours 11/20/23 11/21/23 11/22/23 23:59 23:59 23:59 Intake Total 1440 / 1440 120 / 120 Output Total 200 / 200 300 / 300 Balance 1240 / 1240 -180 / -180 Lab / Micro Data 11/22/23 01:46 11/22/23 01:46 Labs: Laboratory Results - last 24 hr 11/21/23 16:21: POC Glucose 282 H 11/21/23 16:40: WBC 13.6 H, RBC 4.28 L, Hgb 12.9 L, Hct 39.2 L, MCV 91.6, MCH 30.1, MCHC 32.9, RDW Std Deviation 44.2 H, RDW Coeff of Christian[place] 13.2, Plt Count 310, MPV 10.3, Immature Gran % (Auto) 0.500, Neut % (Auto) 76.6 H, Lymph % (Auto) 14.5 L, [place] % (Auto) 7.7, Eos % (Auto) 0.3, Baso % (Auto) 0.4, Absolute Neuts (auto) 10.4 H, Absolute Lymphs (auto) 1.97, Nucleated RBC % 0, Sodium 136, Potassium 3.4 L, Chloride 102, Carbon Dioxide 21.0, Anion Gap 13, BUN 28 H, Creatinine 2.19 H, Estim Creat Clear Calc 27.99, Est GFR (MDRD) Af Amer 37 L, Est GFR (MDRD) Non-Af 30 L, BUN/Creatinine Ratio 12.8, Glucose 325 H, Calcium 9.1, Magnesium 2.3, Troponin I High Sens 46, B-Natriuretic Peptide 126.0 H 11/21/23 22:10: Troponin I High Sens 912 H* 11/21/23 22:22: POC Glucose 241 H 11/21/23 22:50: Ur Random Sodium 55, Urine Creatinine 122.00 11/21/23 23:58: Hgb 12.1 L, Hct 36.0 L, Troponin I High Sens 1446 H* 11/22/23 01:46: WBC 13.2 H, RBC 3.85 L, Hgb 11.9 L, Hct 34.7 L, MCV 90.1, MCH 30.9, MCHC 34.3, RDW Std Deviation 42.7, RDW Coeff of Christian[place] 13.2, Plt Count 225, MPV 9.9, Immature Gran % (Auto) 0.300, Neut % (Auto) 80.9 H, Lymph % (Auto) 9.8 L, [place] % (Auto) 8.8, Eos % (Auto) 0.0, Baso % (Auto) 0.2, Absolute Neuts (auto) 10.7 H, Absolute Lymphs (auto) 1.29, Nucleated RBC % 0, PT 14.8, INR 1.2, APTT 22.8 L, Sodium 138, Potassium 4.0, Chloride 106, Carbon Dioxide 23.0, Anion Gap 9, BUN 26 H, Creatinine 1.76 H, Estim Creat Clear Calc 34.70, Est GFR (MDRD) Af Amer 47 L, Est GFR (MDRD) Non-Af 39 L, BUN/Creatinine Ratio 14.8, Glucose 210 H, Calcium 8.3 L, Total Bilirubin 0.50, AST 23, ALT 24, Alkaline Phosphatase 86, Total Protein 5.9 L, Albumin 2.9 L, Globulin 3.0, Albumin/Globulin Ratio 1.0 11/22/23 04:12: Troponin I High Sens 1624 H* 11/22/23 06:22: POC Glucose 172 H Cardiology Labs/Tests 11/21/23 16:40: WBC 13.6 H, RBC 4.28 L, Hgb 12.9 L, Hct 39.2 L, MCV 91.6, MCH 30.1, MCHC 32.9, Plt Count 310, MPV 10.3, Immature Gran % (Auto) 0.500, Neut % (Auto) 76.6 H, Lymph % (Auto) 14.5 L, [place] % (Auto) 7.7, Eos % (Auto) 0.3, Baso % (Auto) 0.4, Absolute Neuts (auto) 10.4 H, Nucleated RBC % 0, Sodium 136, Potassium 3.4 L, Chloride 102, Carbon Dioxide 21.0, Anion Gap 13, BUN 28 H, Creatinine 2.19 H, Est GFR (MDRD) Af Amer 37 L, Est GFR (MDRD) Non-Af 30 L, BUN/Creatinine Ratio 12.8, Glucose 325 H, Calcium 9.1, Magnesium 2.3, B-Natriuretic Peptide 126.0 H 11/21/23 23:58: Hgb 12.1 L, Hct 36.0 L 11/22/23 01:46: WBC 13.2 H, RBC 3.85 L, Hgb 11.9 L, Hct 34.7 L, MCV 90.1, MCH 30.9, MCHC 34.3, Plt Count 225, MPV 9.9, Immature Gran % (Auto) 0.300, Neut % (Auto) 80.9 H, Lymph % (Auto) 9.8 L, [place] % (Auto) 8.8, Eos % (Auto) 0.0, Baso % (Auto) 0.2, Absolute Neuts (auto) 10.7 H, Nucleated RBC % 0, PT 14.8, INR 1.2, APTT 22.8 L, Sodium 138, Potassium 4.0, Chloride 106, Carbon Dioxide 23.0, Anion Gap 9, BUN 26 H, Creatinine 1.76 H, Est GFR (MDRD) Af Amer 47 L, Est GFR (MDRD) Non-Af 39 L, BUN/Creatinine Ratio 14.8, Glucose 210 H, Calcium 8.3 L, Total Bilirubin 0.50 Rhythm: EKG: ECHO: Stress Test: Cardiac Cath: PCI: CT Surgery: Holter monitor: EPS: PPM: CXR: Chest CT Scan: Radiography Diagnostic Testing: Radiology Impression Brain CT 11/21/23 16:36 IMPRESSION: Redemonstration of moderate left frontal parietal scalp hematoma with laceration. No intracranial hemorrhage. No change from prior. Electronically Signed: Manuel Viera MD at 17:12 EDT , Chest X-Ray 11/21/23 16:36 IMPRESSION: Streaky opacities in the left lung base may represent atelectasis versus infection. Electronically Signed: Manuel Viera MD at 17:03 EDT ,
[2023-11-22] MEDS: 0.9% Normal Saline (1000mL) 1,000 ML 100 ML IV (08:28)
[2023-11-22] MEDS: Potassium Chloride Oral Tablet 10 MEQ PO (08:32)
[2023-11-22] MEDS: Insulin Glargine-YFGN 100 UNIT/ML Pen 38 UNIT SC (08:33)
[2023-11-22] MEDS: Metoprolol(XL)Succ 50 MG Tablet PO (08:33)
[2023-11-22 09:07] LABS: Partial Thromboplast Time 60.4 Seconds (24.1-36.2)
--- NOTE | 2023-11-22 09:34 | PCM.PN.HOSP ---
Reason for Visit Reason for Visit: Diagnoses Hyperlipidemia, unspecified (11/21/23) Essential (primary) hypertension (11/21/23) Non-ST elevation (NSTEMI) myocardial infarction (11/21/23) Atherosclerotic heart disease of [place] coronary artery without angina pectoris (11/21/23) Syncope and collapse (11/21/23) Other specified postprocedural states (11/21/23) Subjective Subjective Patient is an 88-year-old gentleman with multiple comorbidities who presented to the emergency department following fall (suspected to be secondary to syncopal episode) which scalp laceration requiring suturing in the emergency department. Patient was also found to have elevated troponin and admitted to a monitored bed for subsequent management Objective Data Objective Data Vital Signs: Vital Signs Temp Pulse Resp BP Pulse Ox O2 Del Method 98.1 F 82 16 111/51 L 98 Room Air 11/22/23 02:58 11/22/23 08:33 11/22/23 02:58 11/22/23 08:33 11/22/23 06:56 11/22/23 06:56 Oxygen Delivery Method Room Air Weight: 98.3 kg Body Mass Index (BMI) 31.1 Intake & Output: Intake and Output for Last 24 Hours 11/20/23 11/21/23 11/22/23 23:59 23:59 23:59 Intake Total 1440 / 1440 1120 / 1120 Output Total 200 / 200 300 / 300 Balance 1240 / 1240 820 / 820 Lab / Micro Data 11/22/23 01:46 11/22/23 01:46 Labs: Laboratory Results - last 24 hr 11/21/23 16:21: POC Glucose 282 H 11/21/23 16:40: WBC 13.6 H, RBC 4.28 L, Hgb 12.9 L, Hct 39.2 L, MCV 91.6, MCH 30.1, MCHC 32.9, RDW Std Deviation 44.2 H, RDW Coeff of Christian[place] 13.2, Plt Count 310, MPV 10.3, Immature Gran % (Auto) 0.500, Neut % (Auto) 76.6 H, Lymph % (Auto) 14.5 L, [place] % (Auto) 7.7, Eos % (Auto) 0.3, Baso % (Auto) 0.4, Absolute Neuts (auto) 10.4 H, Absolute Lymphs (auto) 1.97, Nucleated RBC % 0, Sodium 136, Potassium 3.4 L, Chloride 102, Carbon Dioxide 21.0, Anion Gap 13, BUN 28 H, Creatinine 2.19 H, Estim Creat Clear Calc 27.99, Est GFR (MDRD) Af Amer 37 L, Est GFR (MDRD) Non-Af 30 L, BUN/Creatinine Ratio 12.8, Glucose 325 H, Calcium 9.1, Magnesium 2.3, Troponin I High Sens 46, B-Natriuretic Peptide 126.0 H 11/21/23 22:10: Troponin I High Sens 912 H* 11/21/23 22:22: POC Glucose 241 H 11/21/23 22:50: Ur Random Sodium 55, Urine Creatinine 122.00 11/21/23 23:58: Hgb 12.1 L, Hct 36.0 L, Troponin I High Sens 1446 H* 11/22/23 01:46: WBC 13.2 H, RBC 3.85 L, Hgb 11.9 L, Hct 34.7 L, MCV 90.1, MCH 30.9, MCHC 34.3, RDW Std Deviation 42.7, RDW Coeff of [place] 13.2, Plt Count 225, MPV 9.9, Immature Gran % (Auto) 0.300, Neut % (Auto) 80.9 H, Lymph % (Auto) 9.8 L, [place] % (Auto) 8.8, Eos % (Auto) 0.0, Baso % (Auto) 0.2, Absolute Neuts (auto) 10.7 H, Absolute Lymphs (auto) 1.29, Nucleated RBC % 0, PT 14.8, INR 1.2, APTT 22.8 L, Sodium 138, Potassium 4.0, Chloride 106, Carbon Dioxide 23.0, Anion Gap 9, BUN 26 H, Creatinine 1.76 H, Estim Creat Clear Calc 34.70, Est GFR (MDRD) Af Amer 47 L, Est GFR (MDRD) Non-Af 39 L, BUN/Creatinine Ratio 14.8, Glucose 210 H, Calcium 8.3 L, Total Bilirubin 0.50, AST 23, ALT 24, Alkaline Phosphatase 86, Total Protein 5.9 L, Albumin 2.9 L, Globulin 3.0, Albumin/Globulin Ratio 1.0 11/22/23 04:12: Troponin I High Sens 1624 H* 11/22/23 06:22: POC Glucose 172 H 11/22/23 08:50: APTT 60.4 H Radiography Diagnostic Testing: Radiology Impression Brain CT 11/21/23 16:36 IMPRESSION: Redemonstration of moderate left frontal parietal scalp hematoma with laceration. No intracranial hemorrhage. No change from prior. Electronically Signed: Manuel Viera MD at 17:12 EDT , Chest X-Ray 11/21/23 16:36 IMPRESSION: Streaky opacities in the left lung base may represent atelectasis versus infection. Electronically Signed: Manuel Viera MD at 17:03 EDT , Physical Exam Narrative GENERAL: cooperative HEENT: Sutured frontal scalp laceration EYES; Anicteric, Normal Conjunctiva NECK; supple, normal thyroid, RESPIRATORY: Diminished to auscultation CARDIOVASCULAR: Regular S1 S2, GI: soft, normoactive bowel sounds, : No Renal angle tenderness; EXTREMITIES: No edema, no clubbing, MUSCULOSKELETAL: no muscle wasting NEURO: Awake; no lateralizing signs. SKIN: No Rash PSYCH; Flat affect Assessment & Plan Assessment/Plan (1) Syncope: PLAN: Plan Patient is an 88-year-old gentleman with multiple comorbidities who presented to the emergency department following fall (suspected to be secondary to syncopal episode) which scalp laceration requiring suturing in the emergency department. Patient was also found to have elevated troponin and admitted to a monitored bed for subsequent management 1. Syncopal episode ? [place] to be secondary to orthostatic hypotension given patient acute kidney injury. Admitted to monitored bed every shift orthostatic monitoring ordered patient resuscitated with IV fluid currently being monitored continuously on telemetry 2. Acute non-STEMI ?Patient troponin peaked at 1624. Seen in consultation by Dr. Childs with cardiology recommended aspirin beta-blockers as well as high intensity statin. He also recommended holding off with systemic anticoagulation given patient scalp laceration. Patient to undergo subsequent evaluation with a 2D echo 3. Acute kidney injury superimposed on chronic kidney disease stage III ? Resuscitated with IV fluids subsequent monitoring of electrolyte ordered potential nephrotoxic medications held 4. Hypokalemia -corrected per protocol 5. Coronary artery disease ? With previous PCI. Patient remains on guideline directed medical therapy 6. Dyslipidemia -Patient is on statin therapy, continued at home dose 7. Diabetes mellitus type II -patient's oral hypoglycemics held. Placed on long acting insulin, Accu-Cheks a.c. and at bedtime and covered with sliding scale insulin 8. Anemia ? Due to combination of chronic blood loss anemia as well as acute blood loss anemia from scalp laceration anemia, monitoring H&H and transfuse if patient becomes symptomatic or hemoglobin falls below 7 9. DVT prophylaxis ? Bilateral SCDs for now Time spent in the patient's overall evaluation,decision-making process, review of diagnostic data, adjustment of management, discussion with other providers, nursing nursing and ancillary staff involved in patient's care documentation, 51 Minutes Charges/Coding Visit Charges Inpatient E&M: 70007 Subs Hosp L3
--- NOTE | 2023-11-22 11:25 | CASEMGMT ---
RN?CM?DIESEL ENGINE MECHANIC?CM?to room to meet with patient for initial transition planning/care coordination?assessment.?RN?CM?introduced self and role at [facility].? Pt voices understanding and consents to?assessment?at this time.? Pt resting in bed in no distress at this time.? Pt is A/O at this time and answers all questions appropriately.?? Care providers, pharmacy, and demographics verified/updated at this time. PCP: Dr Zamora Specialists: GOLD/Cardiology, Dr Bolton/podiatry [facility]erred [facility]acy: [facility] Insurance: [employer] Prescription Benefit:?yes LNOK: Friend/POA, Leonardo. Nephew, Les Living Arrangements: Lives alone in one-story home w/no steps to enter. Independent w/ADL's, IADL's, and manages his own medications and appts. Transportation:?Pt states drives self and states no transportation concerns at this time.?Niece will take him home @ dc. DME:? States has the following DME:?cane, medical alert, rails, functioning glucometer w/supplies, and states has all needed insulin, supplies, and meds. ?Pt states no need for further DME at this time.? HHC/SNF: No hx of either. Pt wishes to return home and states has no concerns with going home at time of discharge.? Therapy evals pending. Discussed options of HHC and OP therapy. Pt states he will do whatever they recommend. Pt voices no further concerns/needs at this time.? Advised pt to ask for?CM?if any further questions/concerns/needs arise.? Voices understanding. PLAN:??Home. Follow for possible HHC or OP therapy. Nikolas GROSSN?RN?CM
[2023-11-22 12:36] LABS: Bedside Glucose 238 mg/dL (74-106)
--- NOTE | 2023-11-22 13:07 | CHAPLAIN ---
Type of Pastoral Visit _x__ Initial Visit ___ Follow-up Visit ___ On-call Visit ___ General Patient Visit ___ Spiritual Assessment ___ Family Conference ___ Bereavement ___ Rapid Response ___ Code Blue ___ Other (describe below) Pastoral Care Referral From _x__ Patient _x__ Family ___ Nurse ___ Physician ___ Hazardous Waste Management Specialist ___ Sealing And Canceling Machine Operator ___ Other (describe below) Sacrament/Intervention _x__ Active listening ___ Anointing ___ Yarsanism ___ Bereavement ___ Communion ___ Rosibel exploration ___ _x__ Life review ___ Prayer ___ Reconciliation ___ Sacrament of Sick _x__ Supportive presence ___ Wedding ___ Other (describe below) Pastoral Comments patient and family members are in the room; pt is eating lunch and continues while talking and interacting; nephew speaks mostly about the situation and that he is only close relative in the area; pt came back to hospital right after being discharged from ED yesterday; pt said that more tests are being done and he is glad about that, wanting to have answers and to have healing; pt states that family is giving him the support and prayers needed but I know who to call when I need something more;
[2023-11-22] MEDS: Acetaminophen 325 MG Tablet 650 MG PO ×2 (13:48→21:37)
[2023-11-22 17:26] LABS: Bedside Glucose 197 mg/dL (74-106)
[2023-11-22] MEDS: Atorvastatin Calcium 40 MG Tablet PO (21:13)
[2023-11-22 22:30] LABS: Bedside Glucose 191 mg/dL (74-106)
[2023-11-23] VITALS (14 sets, daily range): BP systolic 97–148; BP diastolic 49–89; PULSE 64–81; RESP 16–18; TEMP 36.4–37; O2SAT 93–100; BMI 29.5
[2023-11-23] MEDS: Insulin Lispro 100 UNIT/ML INSULN.PEN SC ×3 (06:27→22:30)
[2023-11-23 06:53] LABS: Bedside Glucose 165 mg/dL (74-106)
[2023-11-23 07:40] LABS: Absolute Lymphocyte Count 1.78 X10^3/uL (0.83-4.51); Absolute Neutrophil Count 4.9 X10^3/uL (2.0-7.7); Basophil# 0.02 X10^3/uL; Basophil% 0.3 % (0-1); Eosinophil# 0.07 X10^3/uL; Eosinophils% 0.9 % (0-5); Hemoglobin 10.8 g/dL (13.0-16.5); Lymphocyte # 1.78 X10^3/ul (0.83-4.51); Lymphocyte % 23.7 % (19-41); Mean Corp Hgb Conc 33.8 g/dL (32-36); Mean Corpuscular Hgb 30.9 pg (27.0-32.0); Mean Corpuscular Volume 91.4 fL (80-94); Monocyte# 0.72 X10^3/uL; Monocyte% 9.6 % (0-10); NRBC Flagged by Analyzer 0 % (0-5); Neutrophil # 4.89 X10^3/uL (2.7-7.7); Neutrophil % 65.2 % (47-70); Platelet Count 191 K/mm3 (150-450); RBC Distribution Width CV 13.4 % (11.6-14.6); RBC Distribution Width SD 44.9 fl (35.1-43.9); White Blood Count 7.5 K/mm3 (4.4-11.0)
[2023-11-23 08:11] LABS: Anion Gap 5 (5-15); BUN 24 mg/dL (7-18); BUN/Creat Ratio 17.5 RATIO (10-20); Calcium,Total 8.2 mg/dL (8.5-10.1); Chloride 108 mmol/L (98-107); Creatinine, Serum 1.37 mg/dL (0.70-1.30); EST Glomerular Filtration Rate 52 mL/min (>60); Est Glom Filt Rate - Afr Amer 63 mL/min (>60); Estimated Creatinine Clearance 43.63 ml/min; Glucose 183 mg/dL (74-106); Magnesium 2.2 mg/dL (1.6-2.6); Phosphorus 1.9 mg/dL (2.5-4.9); Potassium 3.4 mmol/L (3.5-5.1); Sodium Level 138 mmol/L (136-145)
[2023-11-23] MEDS: Metoprolol(XL)Succ 50 MG Tablet PO (08:16)
[2023-11-23] MEDS: 0.9% Normal Saline (1000mL) 1,000 ML 75 ML IV (08:17)
[2023-11-23] MEDS: 0.9% Saline Lock 10 ML Syringe IV (08:17)
[2023-11-23] MEDS: Potassium Chloride Oral Tablet 10 MEQ PO (08:27)
--- NOTE | 2023-11-23 09:58 | PN.HOSP_ITS ---
Reason for Visit Reason for Visit: Diagnoses Hyperlipidemia, unspecified (11/21/23) Essential (primary) hypertension (11/21/23) Non-ST elevation (NSTEMI) myocardial infarction (11/21/23) Atherosclerotic heart disease of [place] coronary artery without angina pectoris (11/21/23) Syncope and collapse (11/21/23) Other specified postprocedural states (11/21/23) Subjective Subjective Patient seen scheduled to undergo left heart catheterization with intervention if needed. Kidney function continues to improve creatinine down to 1.37. Potassium is 3.4 Objective Data Objective Data Vital Signs: Vital Signs Temp Pulse Resp BP Pulse Ox O2 Del Method 98.0 F 81 16 148/56 H 96 Room Air 11/23/23 08:02 11/23/23 08:16 11/23/23 08:02 11/23/23 08:16 11/23/23 08:02 11/23/23 08:02 Oxygen Delivery Method Room Air Weight: 93.5 kg Body Mass Index (BMI) 29.5 Intake & Output: Intake and Output for Last 24 Hours 11/21/23 11/22/23 11/23/23 23:59 23:59 23:59 Intake Total 1440 / 1440 2628.2 / 2628.2 0 / 0 Output Total 200 / 200 1050 / 1050 0 / 0 Balance 1240 / 1240 1578.2 / 1578.2 0 / 0 Lab / Micro Data 11/23/23 07:18 11/23/23 07:18 Labs: Laboratory Results - last 24 hr 11/22/23 12:16: POC Glucose 238 H 11/22/23 16:57: POC Glucose 197 H 11/22/23 21:16: POC Glucose 191 H 11/23/23 06:26: POC Glucose 165 H 11/23/23 07:18: WBC 7.5, RBC 3.50 L, Hgb 10.8 L, Hct 32.0 L, MCV 91.4, MCH 30.9, MCHC 33.8, RDW Std Deviation 44.9 H, RDW Coeff of [place] 13.4, Plt Count 191, MPV 10.0, Immature Gran % (Auto) 0.300, Neut % (Auto) 65.2, Lymph % (Auto) 23.7, [place] % (Auto) 9.6, Eos % (Auto) 0.9, Baso % (Auto) 0.3, Absolute Neuts (auto) 4.9, Absolute Lymphs (auto) 1.78, Nucleated RBC % 0, Sodium 138, Potassium 3.4 L , Chloride 108 H, Carbon Dioxide 25.0, Anion Gap 5, BUN 24 H, Creatinine 1.37 H, Estim Creat Clear Calc 43.63, Est GFR (MDRD) Af Amer 63, Est GFR (MDRD) Non-Af 52 L, BUN/Creatinine Ratio 17.5, Glucose 183 H, Calcium 8.2 L, Phosphorus 1.9 L, Magnesium 2.2 Radiography Diagnostic Testing: Radiology Impression Echocardiogram 11/22/23 01:15 Interpretation Summary Normal LV size. The left ventricular ejection fraction is 60 %. Left ventricular systolic function is normal. Stage 1 diastolic dysfunction. Contrast injection was performed. Ordering Physician: Tj Bowles Referring Physician: Vipul Zamora Performed By: Janice Lowery RDCS Physical Exam Narrative GENERAL: cooperative HEENT: Sutured frontal scalp laceration, left periorbital bruising EYES; Anicteric, Normal Conjunctiva NECK; supple, normal thyroid, RESPIRATORY: Diminished to auscultation CARDIOVASCULAR: Regular S1 S2, GI: soft, normoactive bowel sounds, : No Renal angle tenderness; EXTREMITIES: No edema, no clubbing, MUSCULOSKELETAL: no muscle wasting NEURO: Awake; no lateralizing signs. SKIN: No Rash PSYCH; Flat affect Assessment & Plan Assessment/Plan (1) Syncope: PLAN: Plan Patient is an 88-year-old gentleman with multiple comorbidities who presented to the emergency department following fall (suspected to be secondary to syncopal episode) which scalp laceration requiring suturing in the emergency department. Patient was also found to have elevated troponin and admitted to a monitored bed for subsequent management 1. Syncopal episode ? [place] to be secondary to orthostatic hypotension given patient acute kidney injury. Admitted to monitored bed every shift orthostatic monitoring ordered patient resuscitated with IV fluid currently being monitored continuously on telemetry -11/23/2023; telemetry monitoring demonstrated few runs of nonsustained VT 2. Acute non-STEMI ?Patient troponin peaked at 1624. Seen in consultation by Dr. Childs with cardiology recommended aspirin beta-blockers as well as high intensity statin. He also recommended holding off with systemic anticoagulation given patient scalp laceration. Patient to undergo subsequent evaluation with a 2D echo ? 11/23/2023. 2D echo demonstrated normal LV size.The left ventricular ejection fraction is 60 %.Left ventricular systolic function is normal.Stage 1 diastolic dysfunction.. Patient scheduled to undergo left heart catheterization with intervention if needed 3. Acute kidney injury superimposed on chronic kidney disease stage III ? Resuscitated with IV fluids subsequent monitoring of electrolyte ordered potential nephrotoxic medications held ? 11/23/2023 creatinine down to 1.37 4. Hypokalemia -corrected per protocol 5. Coronary artery disease ? With previous PCI. Patient remains on guideline directed medical therapy 6. Dyslipidemia -Patient is on statin therapy, continued at home dose 7. Diabetes mellitus type II -patient's oral hypoglycemics held. Placed on long acting insulin, Accu-Cheks a.c. and at bedtime and covered with sliding scale insulin 8. Anemia ? Due to combination of chronic blood loss anemia as well as acute blood loss anemia from scalp laceration anemia, monitoring H&H and transfuse if patient becomes symptomatic or hemoglobin falls below 7 9. DVT prophylaxis ? Bilateral SCDs for now 10. Closed head injury ? Symptomatic management Time spent in the patient's overall evaluation,decision-making process, review of diagnostic data, adjustment of management, discussion with other providers, nursing nursing and ancillary staff involved in patient's care documentation, 50 Minutes Charges/Coding Visit Charges Inpatient E&M: [id number] [facility] Hosp L3
[2023-11-23 11:06] LABS: Bedside Glucose 177 mg/dL (74-106)
[2023-11-23 14:23] LABS: ACT Activated Clotting Time 282 sec (74-137)
[2023-11-23 14:23] LABS: ACT Activated Clotting Time 271 sec (74-137)
--- NOTE | 2023-11-23 14:30 | CL.I_ITS ---
Patient Name: ROBER CHAVEZ Study Date: 11/23/2023 Performing: Candice Barker MD Ht: 70 inches 177.8 cm : 1935 Wt: 206.13 lbs 93.5 kg Age: 88 Gender: male BSA: 2.11 PROCEDURE(S) PERFORMED DC02-(40812)LHC/COR IC12-(24650/C9600)MISSY W/WO PTCA, SINGLE CORONARY ARTERY [id number] INTRAVASCULAR LITHOTRIPSY CLINICAL PROFILE AND CO-MORBIDITIES Indications: ACS > 24 hrs Heart Failure: None CAD Presentations: Non-STEMI. Symptom onset Date/Time: Time Not Available CONCLUSIONS 80% ostial RCA; 40% ISR Mid RCA 20-30% ISR LCX [place] 3.5x12, 3.0x8 and 3.0x8 mm RECOMMENDATIONS 40% Mid LAD ASA Indefinitley Plavix for at least 12 months DESCRIPTION OF PROCEDURE The patient arrived to the procedure lab. The risks and benefits of the procedure as well as a full description of our services here and lack of surgical backup were fully explained to the patient and/or their significant other prior to the catheterization. The Timeout was completed, verifying the correct patient and procedure. The patient's procedural site was prepped and draped in the usual fashion. Local anesthetic was given subcutaneously to right radial region with Lidocaine 2%. Using a modified Seldinger technique, and ultrasound guidance,arterial access was obtained via the right radial artery, a 6Fr sheath was inserted.. Left Coronary Artery selective angiography was performed in multiple views using a 5 Fr. 4.0 Blain catheter. Right Coronary Artery selective angiography was then performed in multiple views using a 5 Fr. 4.0 Blain catheterThe images were reviewed and options discussed. A decision was then made to proceed with an Intervention, IVUS or other adjunct procedure. JR4 SH Guide catheter was inserted and engaged into the RCA. Runthrough Guide wire was advanced to the RCA. PTCA balloon inflated at 6 atms for 10 secs. PTCA balloon inflated at 4 atms for 15 secs. 3.5 x 12 [place] Arik Drug Eluting stent was advanced across the lesion in the right coronary, ostial. 3.0 x 8 [place] Arik Drug Eluting stent was advanced across the lesion in the right coronary, ostial. Angiogram performed post stent deployment. 3.5 x 12 NC Emerge Balloon catheter was inserted post stent. Angiogram performed post balloon dilatation. Arik [place] 3.0 x 8 Drug Eluting stent was inserted. Drug Eluting stent was advanced across the lesion in the right coronary, ostial. Angiogram performed pre stent deployment. Angiogram performed post stent deployment. Angiogram performed post stent deployment. The arterial sheath was pulled and a TR Band was applied for hemostasis CORONARY ANGIOGRAPHY DOMINANCE: Right Dominant LEFT MAIN: No significant disease noted LEFT ANTERIOR DESCENDING ARTERY: LAD: Calcified 40% Mid lesion in LAD RIGHT CORONARY ARTERY: RCA: Calcified 80% Ostial lesion in RCA In-Stent Restenosis 40% Mid lesion in RCA INTERVENTION INFORMATION LESION SITE: RCA (Ostial) Lesion Complexity: High/C, lesion length: 26 mm, culprit lesion: Yes Pre Stenosis: 80 % Pre intervention JOYCELYN flow: 3 PROCEDURE: Drug Eluting Stent with pre and post dilatation Post Stenosis: 0 % Post intervention JOYCELYN flow: 3 Lesion Devices: Atmoceantronic 6 Fr JR4.0 SH 100cm Guide Catheter Terumo .014 180cm Runthrough Extra Floppy straight [employer] Shockwave IVL 3.5x12 Medtronic 3.5 x 12 ARIK FRONTIER MISSY Medtronic 3.0 x 08 ARIK FRONTIER MISSY [employer] EMERGE MR 3.50x12 BALLOON Medtronic 3.0 x 08 ARIK FRONTIER MISSY COMPLICATIONS No Complications PROCEDURE MEDICATIONS Fentanyl 50 mcg IV Versed 1 mg IV Oxygen: 2 L/min via nasal cannula Aspirin (325mg) 1 Tabs PO 11/23/2023 13:07:17 Brilinta 180 mg PO @ 11/23/2023 13:36:29 Heparin given IA 11/23/2023 13:17:49 Heparin 6000 unit(s) IV 11/23/2023 13:36:36 Heparin 2000 unit(s) IV 11/23/2023 14:00:28 Heparin 1000 unit(s) IV 11/23/2023 14:19:52 Nitro 100 mcg IC 11/23/2023 14:06:58 Verapamil 2.5mg, Ntg 200mcgs, 2000 units of Heparin given IA 11/23/2023 13:17:49 SUMMARY OF HEMODYNAMIC DATA Time AIR REST AO 84/45 (59) SA 13:19:32 AO 113/48 (67) 13:23:07 ECG 14:23:36 AIR REST 14:23:44 Signed By Candice Barker MD On 11/23/2023 14:29:42 Candice Barker MD
--- NOTE | 2023-11-23 14:47 | EKG12_ITS ---
Test Reason : PCI Blood Pressure : / mmHG Vent. Rate : 069 BPM Atrial Rate : 069 BPM P-R Int : 230 ms QRS Dur : 102 ms QT Int : 440 ms P-R-T Axes : 075 -15 153 degrees QTc Int : 471 ms Sinus rhythm with 1st degree A-V block T wave abnormality, consider lateral ischemia Prolonged QT Abnormal ECG When compared with ECG of 21-NOV-2023 16:43, Nonspecific T wave abnormality now evident in Inferior leads T wave inversion more evident in Lateral leads Confirmed by JULIO CESAR FELICIANO ([id number]), food expeditor VIANEY MANCILLA ([id number]) on 11/28/2023 9:32:06 AM Referred By: NICOLASA Confirmed By:JULIO CESAR FELICIANO
[2023-11-23] MEDS: Insulin Glargine-YFGN 100 UNIT/ML Pen 38 UNIT SC (14:58)
--- NOTE | 2023-11-23 14:59 | CRPHASE1_ITS ---
Patient Communication Patient Information Former Patient:: Phase I PHII Cardiac Rehab Discussed with Patient:: Yes Guide to Cardiac Rehab Given to Patient:: Yes Cardiac Rehab Facility Choice List Given to Patient:: Yes Communication to Cardiac Rehab Choice Program [facility] CR PHII:: Communication Given to CR Choice Program Other:: Communication Given to CR Count Team Member:: Candice Barker Sessions:: 36 sessions - 3 days/wk, 12 weeks Cardiac Rehabilitation Info Program Information Cardiac Rehabilitation Program Information: Cardiac Rehab The cardiac rehab team at [facility] [place] consists of highly skilled exercise physiologists, nurses, respiratory therapists and physicians working together with you. Our purpose is to help you have a full recovery and achieve the goals you set for yourself. Over the years many of our patients have returned to activities they assumed they would never do again! We can help restore your confidence and motivation to make lifestyle changes that can have a significant impact on your health and quality of life! We can help answer questions and concerns you may have about exercise, lifestyle, medications, diet, stress and anxiety which are common following a hospitalization. WE monitor ECG and vital signs during exercise and discuss your progress with you and report to your physician(s). Cardiac Rehab is proven to help reduce readmissions, improve functional capacity and lower recurrence of problems with your heart. Our Cardiac Rehab program is Certified by the [place] [employer]Vascular and Pulmonary [employer] (AACVPR) and Accredited by the [place] [employer] through our [facility]. You can contact us at . We invite you to call us with your questions or to get started in our program. If you have other questions or concerns be sure to ask your physician/provider during your follow-up visit. WE look forward to seeing you!
--- NOTE | 2023-11-23 15:03 | CRPH1.INSTRU ---
General Education Discussed with Patient CAD and cardiac anatomy and function:: Patient communicates acknowledgment Explanation of diagnoses and procedures:: Patient communicates acknowledgment Sign/Symptoms of SC:: Patient communicates acknowledgment Antiplatelet therapy: Patient communicates acknowledgment Proper use of NTG-SL: Patient communicates acknowledgment Emergency procedures and activation of EMS: Patient communicates acknowledgment Compliance of all prescribed medications: Patient communicates acknowledgment Smoking Risk Factors Patient Nicotine/Smoking Risk Factors Are:: Cigarettes Recommendations Recommendations Include:: Previous smoker; encourage continued cessation Response Code Nicotine/Smoking Response Code:: Patient communicates acknowledgment Dyslipidemia Risk Factors Patient Dyslipidemia Risk Factors Are:: Total Cholesterol and Triglycerides Recommendations Recommendations Include:: Lipid profile not available, Reviewed NCEP/ATP guidelines and Therapeutic Lifestyle Change dietary guidelines Response Code Dyslipidemia Response Code:: Patient communicates acknowledgment Overweight/Obesity Risk Factors Patient Overweight/Obesity Risk Factors Are:: BMI Normal [18-25 & < 65 years old], BMI Normal [24-29 & > 65 years old], Overweight = 26-29 and Obesity - > or = 30 Recommendations Recommendations Include:: Weight loss of 5-10%, Reduced calorie diet and Exercise 5-7 times/week Response Code Overweight/Obesity:: Patient communicates acknowledgment Hypertension Recommendations Recommendations Include:: Maintain BP <130/85, BP <130/80 if diabetic, DASH dietary guidelines, Decrease/maintain normal body weight and Moderation of ETOH Response Code Hypertension:: Patient communicates acknowledgment Heart Disease Risk Factors Patient Heart Disease Risk Factors Are:: Family history of heart disease < 65 years old and Previous cardiac event Recommendations Recommendations Include:: Educated family members of their risk Response Code Heart Disease Response Code:: Patient communicates acknowledgment Diabetes Recommendations Recommendations Include:: Maintain fasting blood sugars 70-110 md/dL, Maintain HgbA1c of 6% or less, Monitor blood sugar as prescribed, Diabetic dietary guidelines and Decrease/maintain body weight Response Code Diabetes:: Patient communicates acknowledgment Metabolic Syndrome Risk Factors Patient Metabolic Syndrome Risk Factors Are [3 of 5]:: Fasting blood sugar > 100 mg/dL, Waist circumference > 35 [female] or 40 [male], High triglyceride >150, Hypertension and Low HDL <40 [male] or < 50 [female] Recommendations Recommendations Include:: Reinforce compliance to risk factor modifications and Encouraged follow-up with Primary Care Physician Response Code Metabolic Syndrome Response Code:: Patient communicates acknowledgment Sedentary Risk Factors Patient Sedentary Risk Factors Are:: Lack of regular exercise Recommendations Recommendations Include:: Aerobic exercise 5-7 times/week for 20-30 minutes continuously, Benefits of regular exercise, Discussed home walking program and Monitored Outpatient Cardiac Rehab Response Code Sedentary Response Code:: Patient communicates acknowledgment Stress Risk Factors Patient Stress Risk Factors Are:: Patient denies stress as a risk factor Recommendations Recommendations Include:: Identification of stressors, and assessment of coping skills and Stress management techniques Response Code Stress Response Code:: Patient communicates acknowledgment
[2023-11-23 15:36] LABS: Bedside Glucose 169 mg/dL (74-106)
[2023-11-23 16:47] LABS: Bedside Glucose 163 mg/dL (74-106)
[2023-11-23] MEDS: Clopidogrel Bisulfate 300 MG Tablet PO (20:12)
[2023-11-23 22:20] LABS: Bedside Glucose 210 mg/dL (74-106)
[2023-11-23] MEDS: Atorvastatin Calcium 40 MG Tablet PO (22:30)
[2023-11-24 02:41] VITALS: BP 135/47; PULSE 73; RESP 17; TEMP 36.7; O2SAT 97
[2023-11-24] MEDS: Acetaminophen 325 MG Tablet 650 MG PO (02:46)
[2023-11-24 06:00] VITALS: BMI 29.7
--- NOTE | 2023-11-24 07:56 | PCM.PN.CARD ---
Subjective Subjective Patient seen and evaluated. Appears to doing well at this time. Objective Data Vital Signs: Vital Signs Temp Pulse Resp BP Pulse Ox O2 Del Method 98.0 F 73 17 135/47 H 97 Room Air 11/24/23 02:41 11/24/23 02:41 11/24/23 02:41 11/24/23 02:41 11/24/23 02:41 11/24/23 02:51 Oxygen Delivery Method Room Air Weight: 206 lb 12.697 oz Body Mass Index (BMI) 29.7 Intake & Output: Intake and Output for Last 24 Hours 11/22/23 11/23/23 11/24/23 23:59 23:59 23:59 Intake Total 2628.2 / 2628.2 476.25 / 476.25 Output Total 1050 / 1050 0 / 0 350 / 350 Balance 1578.2 / 1578.2 476.25 / 476.25 -350 / -350 Lab / Micro Data 11/23/23 07:18 11/23/23 07:18 Labs: Laboratory Results - last 24 hr 11/23/23 07:18: Sodium 138, Potassium 3.4 L, Chloride 108 H, Carbon Dioxide 25.0, Anion Gap 5, BUN 24 H, Creatinine 1.37 H, Estim Creat Clear Calc 43.63, Est GFR (MDRD) Af Amer 63, Est GFR (MDRD) Non-Af 52 L, BUN/Creatinine Ratio 17.5, Glucose 183 H, Calcium 8.2 L, Phosphorus 1.9 L, Magnesium 2.2 11/23/23 10:46: POC Glucose 177 H 11/23/23 13:39: Activated Clotting Time 282 H 11/23/23 14:14: Activated Clotting Time 271 H 11/23/23 14:56: POC Glucose 169 H 11/23/23 16:26: POC Glucose 163 H 11/23/23 22:00: POC Glucose 210 H Cardiology Labs/Tests 11/23/23 07:18: Sodium 138, Potassium 3.4 L, Chloride 108 H, Carbon Dioxide 25.0, Anion Gap 5, BUN 24 H, Creatinine 1.37 H, Est GFR (MDRD) Af Amer 63, Est GFR (MDRD) Non-Af 52 L, BUN/Creatinine Ratio 17.5, Glucose 183 H, Calcium 8.2 L, Phosphorus 1.9 L, Magnesium 2.2 Rhythm: EKG: ECHO: Stress Test: Cardiac Cath: PCI: CT Surgery: Holter monitor: EPS: PPM: CXR: Chest CT Scan: Assessment & Plan Assessment/Plan (1) NSTEMI (non-ST elevated myocardial infarction): PLAN: He does have a non-ST elevation myocardial infarction. The etiology is unclear as to whether this is primary or secondary. At this particular time due to his laceration I will hold off on intravenous heparin Continue aspirin Continue beta-luan Continue high intensity statin Echocardiogram demonstrated preserved ejection fraction. He underwent cardiac catheterization and PCI of his right coronary artery. Patient can be discharged for outpatient follow-up. (2) Syncope: PLAN: It appears that he is dehydrated and has orthostatic symptoms. I suspect this may be the cause of his syncope. Another cardiac etiology cannot be completely excluded. (3) Hypertension: PLAN: His blood pressure is under fair control on the current medical therapy. (4) Atherosclerotic heart disease of [place] coronary artery without angina pectoris: QUALIFIERS: [place] vs. transplanted heart: [place] heart Qualified Code(s): I25.10 - Atherosclerotic heart disease of [place] coronary artery without angina pectoris PLAN: He does have evidence of coronary artery disease as noted above status post angioplasty of the right coronary artery. (5) Hyperlipidemia: QUALIFIERS: Hyperlipidemia type: unspecified Qualified Code(s): E78.5 - Hyperlipidemia, unspecified PLAN: He will continue on high intensity statin is a highly functional 88-year-old. (6) History of right-sided carotid endarterectomy: PLAN: He will continue with risk factor modification status post right carotid endarterectomy. Thank you for allowing me to participate in the care of your patient. Please don't hesitate to call if any issues arise.
[2023-11-24 08:12] VITALS: BP 116/62; PULSE 61; RESP 16; TEMP 36.7; O2SAT 100
[2023-11-24] MEDS: Aspirin E.C. 81 MG Tablet PO (08:17)
[2023-11-24 08:18] VITALS: BP 116/62; PULSE 61
[2023-11-24] MEDS: Insulin Glargine-YFGN 100 UNIT/ML Pen 38 UNIT SC (08:18)
[2023-11-24] MEDS: Metoprolol(XL)Succ 50 MG Tablet PO (08:18)
[2023-11-24] MEDS: Potassium Chloride Oral Tablet 10 MEQ PO (08:18)
[2023-11-24] MEDS: Clopidogrel Bisulfate 75 MG Tablet PO (08:18)
[2023-11-24] MEDS: 0.9% Saline Lock 10 ML Syringe IV (08:19)
[2023-11-24 08:23] LABS: Absolute Lymphocyte Count 1.86 X10^3/uL (0.83-4.51); Absolute Neutrophil Count 5.6 X10^3/uL (2.0-7.7); Basophil# 0.03 X10^3/uL; Basophil% 0.4 % (0-1); Eosinophils% 1.2 % (0-5); Hematocrit 30.2 % (40-54); Hemoglobin 10.1 g/dL (13.0-16.5); Lymphocyte # 1.86 X10^3/ul (0.83-4.51); Lymphocyte % 21.8 % (19-41); Mean Corp Hgb Conc 33.4 g/dL (32-36); Mean Corpuscular Hgb 30.8 pg (27.0-32.0); Mean Corpuscular Volume 92.1 fL (80-94); Mean Platelet Vol. 10.2 fl (6.2-12.0); Monocyte% 10.6 % (0-10); NRBC Flagged by Analyzer 0 % (0-5); Neutrophil % 65.6 % (47-70); Platelet Count 207 K/mm3 (150-450); RBC Distribution Width CV 13.4 % (11.6-14.6); RBC Distribution Width SD 44.9 fl (35.1-43.9); Red Blood Count 3.28 M/mm3 (4.6-6.2); White Blood Count 8.5 K/mm3 (4.4-11.0)
--- NOTE | 2023-11-24 09:10 | DS.PCM_ITS ---
Providers Date of Admission: 11/21/23 Date of Discharge: 11/24/23 Primary Care Physician: Dr. Vipul Zamora, Consultations 11/22/23 01:15 Consult: Cardiology Routine Consulting Provider: Paul Marin Reason for Consult: Elevated troponin EMERGENT Consult: No MD Notified: Yes Date Notified: 11/22/23 Time Notified: 07:52 Method of Notification: Text Reason For Visit: SYNCOPE, ABIOLA, FALL W/ ACUTE BLOOD LOSS ANEMIA Diagnosis Discharge Diagnosis (1) NSTEMI (non-ST elevated myocardial infarction): Status: Acute Code(s): I21.4 - Non-ST elevation (NSTEMI) myocardial infarction (2) Syncope: Status: Acute Code(s): R55 - Syncope and collapse (3) Hypertension: Status: Chronic Code(s): I10 - Essential (primary) hypertension (4) Atherosclerotic heart disease of [place] coronary artery without angina pectoris: Status: Chronic Code(s): I25.10 - Atherosclerotic heart disease of [place] coronary artery without angina pectoris Qualifiers: [place] vs. transplanted heart: [place] heart Qualified Code(s): I25.10 - Atherosclerotic heart disease of [place] coronary artery without angina pectoris (5) Hyperlipidemia: Status: Chronic Code(s): E78.5 - Hyperlipidemia, unspecified Qualifiers: Hyperlipidemia type: unspecified Qualified Code(s): E78.5 - Hyperlipidemia, unspecified (6) History of right-sided carotid endarterectomy: Status: Chronic Code(s): Z98.890 - Other specified postprocedural states Plan Patient is an 88-year-old gentleman with multiple comorbidities who presented to the emergency department following fall (suspected to be secondary to syncopal episode) which scalp laceration requiring suturing in the emergency department. Patient was also found to have elevated troponin and admitted to a monitored bed for subsequent management 1. Syncopal episode ? [place] to be secondary to orthostatic hypotension given patient acute kidney injury. Admitted to monitored bed every shift orthostatic monitoring ordered patient resuscitated with IV fluid currently being monitored continuously on telemetry -11/23/2023; telemetry monitoring demonstrated few runs of nonsustained VT 2. Acute non-STEMI ?Patient troponin peaked at 1624. Seen in consultation by Dr. Childs with cardiology recommended aspirin beta-blockers as well as high intensity statin. He also recommended holding off with systemic anticoagulation given patient scalp laceration. Patient to undergo subsequent evaluation with a 2D echo ? 11/23/2023. 2D echo demonstrated normal LV size.The left ventricular ejection fraction is 60 %.Left ventricular systolic function is normal.Stage 1 diastolic dysfunction.. Patient scheduled to undergo left heart catheterization with intervention if needed ? 11/24/2023 He underwent cardiac catheterization and PCI of his right coronary artery. 3. Acute kidney injury superimposed on chronic kidney disease stage III ? Resuscitated with IV fluids subsequent monitoring of electrolyte ordered potential nephrotoxic medications held ? 11/23/2023 creatinine down to 1.37 4. Hypokalemia -corrected per protocol 5. Coronary artery disease ? With previous PCI. Patient remains on guideline directed medical therapy 6. Dyslipidemia -Patient is on statin therapy, continued at home dose 7. Diabetes mellitus type II -patient's oral hypoglycemics held. Placed on long acting insulin, Accu-Cheks a.c. and at bedtime and covered with sliding scale insulin 8. Anemia ? Due to combination of chronic blood loss anemia as well as acute blood loss anemia from scalp laceration anemia, monitoring H&H and transfuse if patient becomes symptomatic or hemoglobin falls below 7 9. DVT prophylaxis ? Bilateral SCDs for now 10. Closed head injury ? Symptomatic management Time spent in the patient's overall evaluation,decision-making process, review of diagnostic data, adjustment of management, discussion with other providers, nursing nursing and ancillary staff involved in patient's care documentation, 35 Minutes Medications at Discharge Home Medications aspirin 325 mg tablet 325 mg PO DAILY 09/13/18 blood sugar diagnostic (FreeStyle Lite Strips) #10 ea 05/04/22 insulin glargine 100 unit/mL (3 mL) subcutaneous pen (Lantus Solostar U-100 Insulin) 38 unit subcut [facility] 05/04/22 pen needle, diabetic 31 gauge x 15/64 #50 ea 05/04/22 glipizide 5 mg tablet 5 mg PO DAILY 11/24/22 clopidogrel 75 mg tablet 75 mg PO QDAY BLOOD THINNER #90 tabs 12/21/22 atorvastatin 40 mg tablet 40 mg PO QDAY CHOLESTEROL #90 tabs 02/10/23 isosorbide mononitrate 60 mg tablet,extended release 24 hr 60 mg PO QDAY BP #90 tabs 02/10/23 metoprolol succinate 50 mg tablet,extended release 24 hr 50 mg PO QDAY BP #90 tabs 02/10/23 nitroglycerin 0.4 mg sublingual tablet 0.4 mg sublingual Q5-15M PRN CHEST PAIN #25 tabs 02/10/23 potassium chloride 8 mEq capsule,extended release 8 meq PO DAILY #90 caps 02/18/23 Physical Exam Narrative GENERAL: cooperative HEENT: Sutured frontal scalp laceration, left periorbital bruising EYES; Anicteric, Normal Conjunctiva NECK; supple, normal thyroid, RESPIRATORY: Diminished to auscultation CARDIOVASCULAR: Regular S1 S2, GI: soft, normoactive bowel sounds, : No Renal angle tenderness; EXTREMITIES: No edema, no clubbing, MUSCULOSKELETAL: no muscle wasting NEURO: Awake; no lateralizing signs. SKIN: No Rash PSYCH; Flat affect Weight / BMI Weight Weight: 93.8 kg Body Mass Index (BMI) 29.7 ABG / Lab / Microbiology Data 11/24/23 07:20 11/23/23 07:18 Laboratory: Laboratory Results - last 24 hr 11/23/23 10:46: POC Glucose 177 H 11/23/23 13:39: Activated Clotting Time 282 H 11/23/23 14:14: Activated Clotting Time 271 H 11/23/23 14:56: POC Glucose 169 H 11/23/23 16:26: POC Glucose 163 H 11/23/23 22:00: POC Glucose 210 H 11/24/23 07:20: WBC 8.5, RBC 3.28 L, Hgb 10.1 L, Hct 30.2 L, MCV 92.1, MCH 30.8, MCHC 33.4, RDW Std Deviation 44.9 H, RDW Coeff of [place] 13.4, Plt Count 207, MPV 10.2, Immature Gran % (Auto) 0.400, Neut % (Auto) 65.6, Lymph % (Auto) 21.8, [place] % (Auto) 10.6 H, Eos % (Auto) 1.2, Baso % (Auto) 0.4, Absolute Neuts (auto) 5.6, Absolute Lymphs (auto) 1.86, Nucleated RBC % 0 Meaningful Use Info Meaningful Use Meaningful Use Diagnoses (Choose all that apply): AMI AMI/Post PCI/Angioplasty Aspirin given w/in 24hrs of arrival?: Yes ASA at discharge?: Yes Antiplatelet Therapy at Discharge:: Yes Statins at discharge?: Yes Danny/ARB at discharge?: No Reason Danny/ARB not ordered:: Worsening renal dysfunctn and Hypotension Beta Noe at discharge?: Yes Done w/ Acute CA measure.: Yes Documented LVEF (%): 60 Ischemic Stroke Statin Dosing Therapy Reference: STATIN DOSE THERAPY REFERENCE: * Patients > 75 years receive moderate or high dose statin therapy. * Patients 75 years or YOUNGER should receive HIGH intensity statin dose unless contraindicated. You will be required to document reason for non-treatment if statin daily dose does not meet guidelines. HIGH DOSE STATIN THERAPY DAILY Atorvastatin > than or = to 40 mg Rosuvastatin > than or = to 20 mg Amlodipine + Atorvastatin > than or = to 2.5/40 mg Ezetimibe + Simvastatin 10/80 mg Simvastatin 80mg Discharge Plan Admission Admit Date/Time: 11/21/23 19:04 Attending Provider: Reji Michele Primary Care Provider: Vipul Zamora Consulting Providers: Charline John; Paul Marin Discharge Orders/Prescriptions Prescriptions: Continued aspirin 325 mg tablet 325 mg PO DAILY insulin glargine [Lantus Solostar U-100 Insulin] 100 unit/mL (3 mL) insulin pen 38 unit subcut QAM (DME) FreeStyle Lite Strips Strip See Rx Instructions .ROUTE .MEDSUPPLY Qty: 10 Patient Comments: USE STRIP TO CHECK GLUCOSE ONCE DAILY Rx Instructions: As directed (DME) pen needle, diabetic 31 gauge x 15/64 needle See Rx Instructions .ROUTE .MEDSUPPLY Qty: 50 Patient Comments: USE ONCE DAILY Rx Instructions: As directed glipizide 5 mg tablet 5 mg PO DAILY clopidogrel 75 mg tablet 75 mg PO QDAY Qty: 90 3RF atorvastatin 40 mg tablet 40 mg PO QDAY Qty: 90 3RF isosorbide mononitrate 60 mg tablet extended release 24 hr 60 mg PO QDAY Qty: 90 3RF metoprolol succinate 50 mg tablet extended release 24 hr 50 mg PO QDAY Qty: 90 3RF nitroglycerin 0.4 mg tablet, sublingual 0.4 mg SUBLINGUAL Q5-15M PRN (Reason: CHEST PAIN) Qty: 25 1RF potassium chloride 8 mEq capsule, extended release 8 meq PO DAILY Qty: 90 3RF Discontinued valsartan 80 mg tablet 80 mg PO DAILY Qty: 90 3RF triamterene-hydrochlorothiazid 37.5-25 mg tablet 1 tab PO QDAY Qty: 90 3RF Referrals / Follow Up: Paul Marin MD [Med Staff - Active Staff] - Within 1 Month Vipul Zamora DO [Primary Care Provider] - In 1 Week (For suture removal) Disposition Disposition (needs filled in before D/C Order can be placed): Home, Self Care Charges/Coding Visit Charges Inpatient E&M: 17654 Disch Hosp >30min
[2023-11-24 09:43] LABS: ALB/GLOB Ratio 0.9 RATIO (0.9-2.4); AST(SGOT) 22 U/L (15-37); Alanine Aminotransfer ALT/SGPT 25 U/L (16-61); Albumin, Serum 2.8 g/dL (3.2-5.0); Alkaline Phosphatase 76 U/L (45-117); Anion Gap 7 (5-15); BUN 24 mg/dL (7-18); BUN/Creat Ratio 18.3 RATIO (10-20); Calcium,Total 8.3 mg/dL (8.5-10.1); Chloride 113 mmol/L (98-107); Creatinine, Serum 1.31 mg/dL (0.70-1.30); EST Glomerular Filtration Rate 55 mL/min (>60); Est Glom Filt Rate - Afr Amer 67 mL/min (>60); Globulin 3.1 g/dL (2.2-4.2); Glucose 151 mg/dL (74-106); Potassium 3.2 mmol/L (3.5-5.1); Protein, Total 5.9 g/dL (6.4-8.2); Sodium Level 143 mmol/L (136-145)
--- NOTE | 2023-11-24 10:00 | EKG12_ITS ---
Test Reason : AM EKG Blood Pressure : / mmHG Vent. Rate : 068 BPM Atrial Rate : 068 BPM P-R Int : 222 ms QRS Dur : 098 ms QT Int : 436 ms P-R-T Axes : 064 -10 143 degrees QTc Int : 463 ms Sinus rhythm with 1st degree A-V block T wave abnormality, consider lateral ischemia Abnormal ECG When compared with ECG of 23-NOV-2023 14:56, MANUAL COMPARISON REQUIRED, DATA IS UNCONFIRMED Confirmed by JULIO CESAR FELICIANO ([id number]), publication editor VIANEY MANCILLA ([id number]) on 11/28/2023 9:32:31 AM Referred By: Confirmed By:JULIO CESAR FELICIANO
--- NOTE | 2023-11-24 11:15 | CASEMGMT ---
Patient has order for discharge. ASH WEINBERG in to discuss needs at discharge with patient, nephew, and niece in law. ASH WEINBERG reviewed progress with therapy, patient ambulated 300ft SBA. RN LENARD reviewed recommendations for outpatient vs HHC. Patient states he will be home bound and would like [facility] and declined list of HHC agencies. Patient has been using walker and would like walker for at home, prefers [employer] for DME when agencies reviewed. Script received for walker. Niece inquired about TCU at discharge. ASH WEINBERG asked SW no beds and available and per therapy, SNF not recommended, patient and family updated. RN LENARD made referral to [facility] and they are able to accept with start of care for tomorrow for nursing and Tuesday or Tuesday for therapy. ASH WEINBERG updated patient and family regarding [facility] acceptance and agreeable to starts of care. ASH WEINBERG received message for [facility] asking for update, A[facility] WEINBERG asked patient's permission to discuss plans with [facility] and patient provided permission. [facility] called and updated [facility] regarding discharge plans. Leonardo inquired about TCU and ASH WEINBERG updated him that their are no beds available and patient would like to discharge home with [facility]. Leonardo had no further questions or concerns. ASH WEINBERG updated patient regarding conversation with [facility]. ASH WEINBERG provided patient with walker from [employer] stock and referral sent via [employer]. Patient and family had no further questions or concerns.
[2023-11-24] MEDS: Insulin Lispro 100 UNIT/ML INSULN.PEN SC (11:22)
[2023-11-24 13:51] LABS: Bedside Glucose 167 mg/dL (74-106)
[2023-11-24 13:51] LABS: Bedside Glucose 264 mg/dL (74-106)
[2023-11-24 13:51] LABS: Bedside Glucose 146 mg/dL (74-106)
== END 2023-11-24 13:49 | disposition home health service (06) | DRG 324 ==
LOC: ED 16:58 → PCU 20:19
PROVIDERS: Family Medicine; Admitting Provider Family Medicine; Emergency Provider Student in an Organized Health Care Education/Training Program; PCP Family Medicine; Visit Provider Internal Medicine
DX: I21.4 Non-ST elevation (NSTEMI) myocardial infarction (principal); D62 Acute posthemorrhagic anemia; N17.9 Acute kidney failure, unspecified; E11.22 Type 2 diabetes mellitus with diabetic chronic kidney disease; N18.30 Chronic kidney disease, stage 3 unspecified; Z79.4 Long term (current) use of insulin; I12.9 Hypertensive chronic kidney disease with stage 1 through stage 4 chronic kidney disease, or unspecified chronic kidney disease; E78.00 Pure hypercholesterolemia, unspecified; E87.6 Hypokalemia; I95.1 Orthostatic hypotension; K21.9 Gastro-esophageal reflux disease without esophagitis; I25.10 Atherosclerotic heart disease of native coronary artery without angina pectoris; S01.01XA Laceration without foreign body of scalp, initial encounter; W18.39XA Other fall on same level, initial encounter; Z23 Encounter for immunization; Z95.5 Presence of coronary angioplasty implant and graft; Z79.02 Long term (current) use of antithrombotics/antiplatelets; Z79.82 Long term (current) use of aspirin; Z79.84 Long term (current) use of oral hypoglycemic drugs; Z79.899 Other long term (current) drug therapy
CPT/HCPCS: 36415; 70450; 71045; 72125; 80048; 80053; 82570; 82962; 83735; 83880; 84100; 84300; 84484; 85014; 85018; 85025; 85347; 85610; 85730; 90471; 90715; 92928; 92972; 93005; 93306; 93454; 94668; 97116; 97162; 97166; 97530; 97535; 99152; 99153; 99282; 99285; C1761; C1887; J7030; J7040; Q9957; Q9967; A4216; C1769; C1874; C1894; C8929; C9600

== ENCOUNTER → 2024-01-25 | Outpatient (CLI) | payer MEDICARE, OTHER, SELFPAY ==
--- NOTE | 2024-01-25 08:13 | PCM.CR.ITP ---
Diagnosis General Information Admitting Diagnosis: NON-STEMI, PCI w/coronary stenting Secondary Diagnosis: HTN, HLD, ASHD, Previous stents, DM Type II Personal Learning Style:: Audio/Visual and Written Barriers to Learning: Hearing Impairment (Acute Hearing loss bilaterally.) and Vision Impairment Stage of change r/t lifestyle modifications:: Action Gave educational material for:: Treating Heart Disease, How The Heart Works, What it means to have Heart Disease, How Coronary Artery Disease is Diagnosed, Heart Procedures, What Heart Medications Do, Risk Factors & Modifications, Living an Active Life, Nutrition, Emotions & Heart Disease, Stress Management & Relaxation and Sleep Disorders & Heart Disease Education/Goals Individual Counseling: Initial Assessment: Abnormal Cholesterol Levels, High Blood Pressure, Diabetes, A. Fasting Blood Sugar >100 (Glucose 122 HbA1c 5.6) and Hypertension Cardiac Rehabilitation Goals Personal Goals: Initial Assessment: Participate in home exercise program, Get back to work, or to resume activities faster, Improve muscle strength and endurance, Improve diet and eating habits (eat healthier) and Control risk factors (learn risk factor modification) Scale for measuring improvement of personal goals Diagnosis & Disease Process Outcomes/Goals: Pt IDs own risk factors & lifestyle modifications by Session 10, Verbalizes symptoms of angina & response by session 3. and Pt independently manages Plan/Interventions: Assist Pt to ID & engage in lifestyle modification to reduce CVD risk, Instruct on individual risk factors, Review symptoms of angina & emergency actions and Review secondary diagnosis & identify educational needs. Safety Referral to Physical Therapy: No Referral to [facility] Case Management: No Fall Risk Assessed:: Yes Assistive Devices:: Cane (Acute balance issues) Exercise - Initial Assessment Visit Date of Eval: 01/25/24 Session #:: 0 (Pre=program evaluation) Mets: Pre-: >5 METS for 30 minutes by discharge Physician Prescribed Exercise Modalities: Schwinn Airdyne AD-7, SciFit Stepper and SciFit Lateral [place] Frequency: 3x/week for 12 weeks [36 sessions] Intensity: 60-80% of age predicted maximum heart rate reserve Duration: 30 - 45 minutes Current METSs:: 3.0 Target Heart Rate:: 88-100 Resting Blood Pressure: 151/65 EKG Type: Sinus rhythm w/ 1st degree AV block per EKG. Outcomes & Goals Goals:: Verbalizes understanding of THR, RPE & goal METS by session 6, Documents in home exercise log/reports 30 min aerobic 5 day/wk by DC and Demonstrates accurate pulse taking by DC Intervention & Plan Exercise Program Goals: Instruct on personal THR & RPE, Instruct on MET level & personal MET goal, Show patient to take own pulse /validate performance until accurate and Instruct on home exercise Physical Activity Home Exercise Physical Activity - Home Exercise: Safe Exercise, Warm-up, Self-monitoring, Cool-Down, Home Exercise > 30 min Daily and Sitting Time <3 hours/daily Outcomes & Goals Outcomes/Goals: Demonstrates correct Warm-up/exercise Cool-Down (S3) if = 2.5 METs, Verbalizes symptoms of exercise intolerance by Session 3 (S3) and Demonstrate safe equipment use (S3) & follows exercise prescrition (6) Intervention & Plan Plan/Intervention: Instruct warm-up & cool-down if exercising at > 2 METs, Instruct on symptoms of exercise intolerance & actions to take, Instruct & monitor on saf and Assess intial functional capacity & safety risk Nutrition - Initial Assessment Program Goals Nutrition Program Goals Patient has diagnosis of Hyperlipidemia (ICD E78)?: Yes Visit Date of Eval: 01/25/24 Session #:: 0 (Pre-program evaluation) Cholesterol/Lipids (Other Core Measures) Triglycerides (mg/dL): 0 (Patient has no recorded recent lipid profile available.) Determine presence & major risk factors that modify LDL goal: Hypertension or hypertensive medication and Age men > 45 years; women >/= 55 years Outcomes/Goals: Pt IDs own risk factors & lifestyle modifications by Session 10, Verbalizes symptoms of angina & response by session 3. and Pt independently manages Intervention/Plan: Instruct on personal lipid levels & lipid goals/NCEP guidelines and Instruct on cholesterol Referral to dietitian:: Yes Diabetes (Other Core Measures) Diabetes Type: Diagnosis Type II ICD-10 E11 Fasting blood glucose:: 122 (Done this morning before evaluation) Hgb A1C (4.2 - 6.3): 5.6 Insulin dependent injection/pump?: Yes (Glargine 38 units, Glipizide 5mg) Non-Insulin Dependent?: Yes Do you monitor your blood sugar at home?: Yes Referral to Diabetic Clinic:: Yes Outcomes/Goals:: Able to state symptoms of, Able to state and Able to state Intervention/Plan:: Instruct on, Refer to and Instruct on Weight Mgt (Other Care) Not Applicable: Yes Height: 5 ft 10 in Weight:: 206 lb BMI: 29.5 Diagnosis Overweight/Obesity BMI> 30% ICD-10 E66: No Diagnosis High BMI/Morbid Obesity BMI> 35% ICD-10 Z68: No Outcomes/Goals: Pt sets, maintains & shows weight loss goal & trend during rehab Intervention/Plan: Instruct on ideal BMI & set weight loss goal w/patient Healthy Eating Habits Will attend diet classes:: Yes Outcomes/Goals:: Consume diet rich in vegs,fruits,whole grain/high fiber,fish,lean meat and Limit sat/trans fats,cholesterol & added salts & sugars Intervention/Plan:: Assess current eating habits Education Gave educational materials for:: Signs & symptoms of hypoglycemia, Signs & symptoms of hyperglycemia, Relate diabetes to coronary artery disease and Healthy eating Core - Initial Assessment Visit Date of Eval: 01/25/24 Session #:: 0 (pre-program evaluation) Medication Compliance Preventative Medication(s):: Aspirin, Clopidogrel/P2Y12 inhibit, Statin/lipid and Beta luan H/O mental health issues: depression, anxiety, or addiction?: No Doesn?t believe in the benefits of treatment?: No Believes medications are unnecessary or harmful?: No Has a concern about medication side effects?: No Expresses concern over the cost of medications?: No Outcomes/Goals: Verbalizes medications,desired effect & common side effects @ DC, Pt self-reports following medication regimen and Keeps card in wallet w/medications listed by DC Interventions/plans: Instruct on medication effects & side effects, Review medication list w/patient every two weeks and Instruct importance of taking meds as ordered & assist problem solving Tobacco Use Tobacco Use: Non-smoker Hypertension Hypertension Diagnosis:: Hypertension ICD-10 I10 Resting Blood Pressure:: 151/65 [place] [employer] Hypertension Guidelines Outcomes/Goals: Able to verbalize/achieve optimal blood pressure <130/80 and Incorporates diet changes & exercise for blood pressure control by DC Interventions/plan: Instruct on optimal blood pressure, hypertension & medications and Instruct on effects of sodium, alcohol, stress, exercise &hypertension Tobacco Cessation Referral Smoking Cessation Referral:: No Individual Education/Counseling:: No Education Schedule Given:: Yes Psychosocial - Initial Assess VIsit Date of Eval: 01/25/24 Session #:: 0 (pre-program evaluation) Not Applicable: Yes History of previous Mental disease:: No Target Goals Target Goals Psychosocial Test Tool Used:: [employer] QOL Cardiac and PHQ-9 Questionnaire phq-9 Severity Referral to Behavioral Health PS - Interventions: Yes: Attend Stress Management Classes and No: Referral to Behavioral Health if PHQ-9 score >9:, No: Referral to [facility] and No: Referral to Physician if PHQ-9 if score is 5-9: Outcomes/Goals: See list Psychosocial Outcomes/Goals:: ID's personal stressors & 2 strategies to manage stress by discharge Intervention/Plan: See List Interventions/Plan:: Assess stressors,coping strategies & signs of derpression on admission, Instruct/assist pt to develop coping & personal stress Mgt strategies, Instruct patient to recognize signs & symptoms of depression and Instruct patient to recog Patient Health Questionnaire PHQ-9 Screening Initial Assessment: 1. Little interest or pleasure in doing things: Not at all 2. Feeling down, depressed, or hopeless: Not at all 3. Trouble falling or staying asleep, or sleeping too much: Not at all 4. Feeling tired or having little energy: Not at all 5. Poor appetite or overeating: Nearly every day 6. Feeling bad about yourself -- or that you are a failure or have let yourself or your family down: Not at all 7. Trouble concentrating on things, such as reading the newspaper or watching television: Not at all 8. Moving or speaking so slowly that other people could have noticed. Or the opposite - being so fidgety or restless that you have been moving around a lot more than usual: Not at all 9. Thoughts that you would be better off , or of hurting yourself in some way: Not at all Total Score: 3 PAIGE-Q SV Test Statements CAD is a disease of the arteries in the heart: True Examples of risk factors for heart disease: True Angina is chest pain or discomfort: True The benefits of resistance training include: I Don't Know Eating more meat and dairy products: False Anti-platelet medications such as aspirin are important: True The only effective way to manage stress: False An exercise warm-up slowly increases heart rate: True Prepared, processed foods usually have high sodium: True Depression is common after a heart attack: I Don't Know The statin medications lower cholesterol: True To control blood pressure, lower the amount of sodium: True If someone gets chest discomfort during walking: I Don't Know Transfats are partially hydrogenated vegetable oils: I Don't Know Sleep apnea that is not treated increases the risk: I Don't Know To control cholesterol, one should become a vegetarian: True Someone knows if he/she is exercising at the right level: I Don't Know Diabetes cannot be prevented with exercise & health eating: True Stress is a large risk for heart attack: True A diet that can help lower blood pressure is rich in: True Total Score Total Correct Responses: 11 Self-Efficacy 6-Item Scale Initial Assessment: We would like to know how confident you are in doing certain activities. Please select your confidence level for: Fatigue Select Number: 10 Physical Discomfort or Pain Select Number: 10 Emotional Distress Select Number: 10 Other Symptoms or Health Problems Select Number: 10 Different Tasks and Activities Select Number: 10 Medication Select Number: 10 (Fully confident in doing task at my own pace.) Total Score:: 10 Nutrition Survey Nutrition Survey Instructions Scoring Instructions Nutrition Survey Initial: Have you lost >10 lbs over the past 2 months without trying?: No Are you following a special diet at home for diabetes, low fat, or low salt?: Yes Are you interested in meeting with a dietitian for help understanding your diet?: No Do you eat less than 3 meals a day?: Yes Do you eat fatty meats (cox, sausage, ribs, etc), fried foods, desserts, large amounts of salad dressings, margarine, butter, or cheese most days?: Yes Do you have food allergies? [Enter types in comment field]: Yes (Fish) Do you eat in restaurants more than 3 times a week?: No Do you season food with salt, seasoning salt, or garlic salt?: No Do you used canned, boxed, frozen meals, or soups, seasoning packets?: No Total Score:: 4 Exercise - 30-day Assessment Physician Prescribed Exercise Modalities: Octavio VIEIRA-7, SciFit Stepper and SciFit Lateral Silviculture Professor Exercise - 60-day Assessment Physician Prescribed Exercise Modalities: Octavio VIEIRA-7, SciFit Stepper and SciFit Lateral Silviculture Professor Exercise - 90-day Assessment Physician Prescribed Exercise Modalities: Octavio Esqueda AD-7, SciFit Stepper and SciFit Lateral Silviculture Professor Exercise - Final/Discharge Physician Prescribed Exercise Modalities: Octavio VIEIRA-7, SciFit Stepper and SciFit Lateral [place] Frequency: 3x/week for 12 weeks [36 sessions] Intensity: 60-80% of age predicted maximum heart rate reserve Current METSs:: 3.0 Target Heart Rate:: 88-100 Nutrition - 30-Day Assessment Weight Mgt (Other Care) Height: 5 ft 10 in Weight:: 206 lb BMI: 29.5 Nutrition - 60-Day Assessment Weight Mgt (Other Care) Height: 5 ft 10 in Weight:: 206 lb BMI: 29.5 Core - 30-Day Assessment Visit Session #:: 0 (Pre=program evaluation) Core - Final Assessment Hypertension Resting Blood Pressure:: 151/65 [place] [employer] Hypertension Guidelines Core - 60-Day Assessment Hypertension Resting Blood Pressure:: 151/65 [place] [employer] Hypertension Guidelines Psychosocial - 30-Day Assess Target Goals Target Goals Referral to Behavioral Health PS - Interventions: Yes: Attend Stress Management Classes and No: Referral to Behavioral Health if PHQ-9 score >9:, No: Referral to [facility] and No: Referral to Physician if PHQ-9 if score is 5-9: Psychosocial - 60-Day Assess Target Goals Target Goals Referral to Behavioral Health PS - Interventions: Yes: Attend Stress Management Classes and No: Referral to Behavioral Health if PHQ-9 score >9:, No: Referral to [facility] and No: Referral to Physician if PHQ-9 if score is 5-9: Psychosocial - 90-Day Assess Target Goals Target Goals Referral to Behavioral Health PS - Interventions: Yes: Attend Stress Management Classes and No: Referral to Behavioral Health if PHQ-9 score >9:, No: Referral to [facility] and No: Referral to Physician if PHQ-9 if score is 5-9: Psychosocial - Final Assessmen Target Goals Target Goals Referral to Behavioral Health PS - Interventions: Yes: Attend Stress Management Classes and No: Referral to Behavioral Health if PHQ-9 score >9:, No: Referral to [facility] and No: Referral to Physician if PHQ-9 if score is 5-9: Nutrition - 90-Day Assessment Weight Mgt (Other Care) Height: 5 ft 10 in Weight:: 206 lb BMI: 29.5 Nutrition - Final Assessment Program Goals Patient has diagnosis of Hyperlipidemia (ICD E78)?: Yes Weight Mgt (Other Care) Height: 5 ft 10 in Weight:: 206 lb BMI: 29.5
--- NOTE | 2024-01-25 08:13 | PCM.CR.HP2 ---
CR - History & Physical General Arrival date:: 01/25/24 Arrival time:: 08:14 Date of Referral:: 11/24/23 Date of CR Evaluation:: 01/25/24 Referring Physician: Dr. Candice Barker Primary Diagnosis: Non-STEMI, PCI w/coronary stent History of Present Cardiac Event Onset Date Acute Myocardial Infarction within 12 months:: Yes (NON-STEMI) PTCA or coronary stenting:: Yes (Has a total of 8 stents in coronary vessels.) Heart or Heart-Lung Transplant:: No Type of Symptoms:: No indication, 80% blockage Interventions with present event:: heart cath and 3 stents Were there any complications?: No, did recently had a fall at home with 20 stitches to his head/balance Medications Ambulatory Orders ?Medication ?Instructions ?Recorded aspirin 325 mg tablet 325 mg PO DAILY 09/13/18 blood sugar diagnostic (FreeStyle #10 ea 05/04/22 Lite Strips) insulin glargine 100 unit/mL (3 38 unit subcut QAM 05/04/22 mL) subcutaneous pen (Lantus Solostar U-100 Insulin) pen needle, diabetic 31 gauge x #50 ea 05/04/22 glipizide 5 mg tablet 5 mg PO DAILY 11/24/22 atorvastatin 40 mg tablet 40 mg PO QDAY CHOLESTEROL #90 tabs 02/10/23 metoprolol succinate 50 mg 50 mg PO QDAY BP #90 tabs 02/10/23 tablet,extended release 24 hr nitroglycerin 0.4 mg sublingual 0.4 mg sublingual Q5-15M PRN CHEST 02/10/23 tablet PAIN #25 tabs potassium chloride 8 mEq 8 meq PO DAILY #90 caps 02/18/23 capsule,extended release clopidogrel 75 mg tablet 75 mg PO QDAY BLOOD THINNER #90 12/19/23 tabs isosorbide mononitrate 60 mg 60 mg PO QDAY BP #90 tabs 01/04/24 tablet,extended release 24 hr Allergies Allergies No Known Allergies Allergy (Verified 12/15/23 14:10) Sleep Disorder Evaluation Hx of Sleep Apnea: No Do you snore loudly (louder than talking or can be heard through closed doors)?: No Do you often feel tired/ fatigued/ sleepy during daytime?: No Has anyone observed you stop breathing during sleep?: No History of Hypertension (for STOP score): Yes STOP Results: Negative Advanced Directives Advanced Directives Power of Television Actor: Yes (Financial POA and a Medical POA) Living Will: Yes Advance Directives Information Provided: No Advance Directives on File: Yes DNR Order?:: No MOLST See MOLST form: No Past Medical History Covid-19 Screening Physicial Symptoms Fever: No Unexplained muscle aches: No Current respiratory symptoms: No Upper respiratory infections symptoms: No Gastro-intestinal symptoms: No Bop-Dbgc-Qkjxbs symptoms: No Other Clinical Concerns Has tested positive for COVID-19 in last 30 days: No Exposure Risk Had contact w/person w/symptoms or Covid-19 (+) last 14 days: No Has High Risk Exposures ID'd by Health dept/Inf Control team: No Pertinent Comorbidities 65 years or older:: Yes Lives in Assisted Living facility:: No Has a chronic lung disease or moderate to severe asthma:: No Has a serious heart condition:: Yes Immunocompromised:: No Severely obese (Body Mass Index of 40 or higher):: No Has chronic kidney disease undergoing dialysis:: Yes Has liver disease:: No Past Medical Illness Medical History Arthritis Atherosclerotic heart disease of [place] coronary artery without angina pectoris Back pain Cancer Cardiology follow-up encounter Dietary restriction Essential hypertension High cholesterol History of echocardiogram History of GI bleed History of stress test Hx of carcinoma in situ of rectum Hyperlipidemia Hypokalemia Insulin dependent diabetes mellitus Non-smoker Nonrheumatic mitral (valve) prolapse Presence of stent in coronary artery (~11/24/23) Rectal cancer Screening for AAA (abdominal aortic aneurysm) Stenosis of right carotid artery Umbilical hernia, incarcerated Wears dentures Wears hearing aid Past Surgical History Surgical History (Reviewed 12/15/23 @ 14:10 by Elena Edwards AUTOMOTIVE PARTS COUNTER PERSON, AUTOMOTIVE PARTS COUNTER PERSON-C) History of basal cell carcinoma excision History of right-sided carotid endarterectomy (~03/13/18) Hx of colonoscopy Presence of coronary angioplasty implant and graft (~07/22/03) Family History Summary Family History Father CAD (coronary artery disease) Diabetes Sister Diabetes Hypertension Grandmother CAD (coronary artery disease) Grandfather CAD (coronary artery disease) Social History Smoking History Smoking Status: Never smoker Hx Tobacco Use: No Hx Smoking Exposure: No Alcohol Use Alcohol Usage: No Substance Abuse Hx Substance Use: No Occupation 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 ) Assistance Do you need any assistance at home?: Home health aid Review of Systems Review of Systems Hints Review of Present Symptoms: Reports Dizziness/Lightheadedness (Balance issues), Heart Arrhythmia/Irregularities (Sinus rhythm w/ 1st degree AV block.) and Sleep - Normal; Denies Shortness of Breath at Rest, Shortness of Breath with Exertion, Angina, Appetite - Normal, Appetite - Special Diet or Sexual Changes Pain Is Patient Pain Free?: No Pain Location: none and back (history of a bad back (lower back) degenerative disc disease and arthritis.) Pain Level: 0/10 Risk Factor Assessment Vital Signs Temperature: 98.6 F Respiratory Rate: 14 Pulse Ox: 96 Blood Pressure: 151/65 Pulse Pulse Rate: 66 Pulse Rhythm: Regular Hypertension How long have you been treated?: A while On medication(s)?: Yes Blood Pressure Sitting - Left Arm: 151/65 Blood Cholesterol/Lipids Total Cholesterol (mg/dL) Goal = less than 200 mg/dL: 0 (Patient has no recent recorded lipid profile available) Diabetes Diabetic History: Type II Nutrition Referral for Diabetes: Yes Obesity Height: 5 ft 10 in Weight:: 206 lb Weight in Pounds: 206.0 lbs Weight Source: [facility] ([facility]) Body Mass Index (BMI): 29.5 Nutritional Referral for Obesity: Yes Physical Inactivity Physical Inactivity: Recreational activity (physically active at home. Encouraged by his nephew (physician) in [place] to do the cardiac rehab program) Risk Stratification Risk Guidelines: Lowest Risk: Risk Factor for Smoking, Risk Factor for Diabetes, Risk Factor for Sedentary Lifestyle and Risk Factor for Depression, Moderate Risk: Risk Factor for Obesity (BMI 29.5) and Risk Factor for Sedentary Lifestyle and Highest Risk: Risk Factor for Hypertension (151/65) For Smoking Smoking Risk Guidelines For Dyslipidemia Dyslipidemia Risk Guidelines For Diabetes Mellitus Diabetes Risk Guidelines For Obesity/Overweight Obesity/Overweight Risk Guidelines For Hypertension Hypertension Risk Guidelines For Sedentary Lifestyle Sedentary Lifestyle Risk Guidelines For Depression Depression Risk Guidelines Family History Family History Father CAD (coronary artery disease) Diabetes Sister Diabetes Hypertension Grandmother CAD (coronary artery disease) Grandfather CAD (coronary artery disease) Motivation Motivation to Participate On a scale of 1 to 10, how prepared are you to commit to attending program?: 7 What do you see as barriers to successfully being able to complete the program?: none What do you see as the benefits of succesfully completing the program? In other words, what do you hope to get out of participating in the program?: healthier, learn to exercise safely at home Are there issues you are dealing with that will interfere with completing the program?: no Do you have a spouse or signficant other, family or friends who will help support you to complete the program?: yes
[2024-01-25 08:28] VITALS: BP 151/65
[2024-01-25 08:34] VITALS: BP 151/65; BMI 29.5
[2024-01-25 08:40] VITALS: BP 151/65; PULSE 66; RESP 14; TEMP 37; O2SAT 96; BMI 29.5
== END | disposition home or self-care (01) ==
PROVIDERS: PCP Family Medicine; Referring Provider Internal Medicine Cardiovascular Disease; Visit Provider Internal Medicine Cardiovascular Disease
DX: E11.9 Type 2 diabetes mellitus without complications (principal); I25.10 Atherosclerotic heart disease of native coronary artery without angina pectoris; I10 Essential (primary) hypertension; E78.5 Hyperlipidemia, unspecified

== ENCOUNTER 2024-02-03 09:30 | Outpatient (RCR) | payer MEDICARE, OTHER, SELFPAY ==
[2024-01-25 08:34] VITALS: BMI 29.5
== END 2024-02-05 23:59 ==
LOC: CR 09:30
PROVIDERS: PCP Family Medicine; Referring Provider Internal Medicine Cardiovascular Disease; Visit Provider Internal Medicine Cardiovascular Disease
DX: I25.10 Atherosclerotic heart disease of native coronary artery without angina pectoris (principal); I21.4 Non-ST elevation (NSTEMI) myocardial infarction; Z95.5 Presence of coronary angioplasty implant and graft
CPT/HCPCS: 93798

== ENCOUNTER 2024-03-07 09:30 | Outpatient (RCR) | payer MEDICARE, OTHER, SELFPAY ==
[2024-01-25 08:34] VITALS: BMI 29.5
--- NOTE | 2024-02-20 13:09 | PCM.CR.ITP ---
Exercise - Initial Assessment Visit Session #:: 9 Physician Prescribed Exercise Modalities: SciFit Stepper, SciFit Pro-II Ergometer and SciFit Lateral Property Underwriter Nutrition - Initial Assessment Weight Mgt (Other Care) Height: 5 ft 10 in Weight:: 210 lb BMI: 30.1 Psychosocial - Initial Assess Target Goals Target Goals Patient Health Questionnaire PHQ-9 Screening 30-Day Re-eval Assessment: 1. Little interest or pleasure in doing things: Not at all 2. Feeling down, depressed, or hopeless: Not at all 3. Trouble falling or staying asleep, or sleeping too much: Not at all 4. Feeling tired or having little energy: Not at all 5. Poor appetite or overeating: Nearly every day 6. Feeling bad about yourself -- or that you are a failure or have let yourself or your family down: Not at all 7. Trouble concentrating on things, such as reading the newspaper or watching television: Not at all 8. Moving or speaking so slowly that other people could have noticed. Or the opposite - being so fidgety or restless that you have been moving around a lot more than usual: Not at all 9. Thoughts that you would be better off , or of hurting yourself in some way: Not at all How difficult have these problems made it for you to do your work, take care of things at home, or get along with other people?: Not difficult at all Total Score: 3 Self-Efficacy 6-Item Scale 30-Day Re-eval Assessment: We would like to know how confident you are in doing certain activities. Please select your confidence level for: Fatigue Select Number: 10 Physical Discomfort or Pain Select Number: 10 Emotional Distress Select Number: 10 Other Symptoms or Health Problems Select Number: 10 Different Tasks and Activities Select Number: 10 Medication Select Number: 10 Total Score:: 10 Nutrition Survey Nutrition Survey Instructions Scoring Instructions Exercise - 30-day Assessment Visit Date of Eval: 02/20/24 Session #:: 9 Physician Prescribed Exercise Modalities: SciFit Stepper, SciFit Pro-II Ergometer and SciFit Lateral [place] Frequency: 3x/week for 12 weeks [36 sessions] Intensity: 60-80% of age predicted maximum heart rate reserve Duration: 30 - 45 minutes Current METSs:: 3 Target Heart Rate:: 88-100 Current RPE:: 12-13 Maximum Excercise HR:: 99 Resting Blood Pressure: 108/58 Maximum Exercise Blood Pressure: 158/56 EKG Type: NSR to 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 Outcomes & Goals Goals:: Verbalizes understanding of THR, RPE & goal METS by session 6, Documents in home exercise log/reports 30 min aerobic 5 day/wk by DC, Demonstrates accurate pulse taking by DC and Other additional outcome/goals: see below Intervention & Plan Exercise Program Goals: Instruct on personal THR & RPE, Instruct on MET level & personal MET goal, Show patient to take own pulse /validate performance until accurate, Instruct on home exercise and Other additional plan/int 30-day Reassessments 30 day Reassessments:: Progressing Reassessment Notes & Comments:: RPE explained Physical Activity Home Exercise Physical Activity - Home Exercise: Safe Exercise, Warm-up, Self-monitoring, Cool-Down, Home Exercise > 30 min Daily and Sitting Time <3 hours/daily Outcomes & Goals Outcomes/Goals: Demonstrates correct Warm-up/exercise Cool-Down (S3) if = 2.5 METs, Verbalizes symptoms of exercise intolerance by Session 3 (S3), Demonstrate safe equipment use (S3) & follows exercise prescrition (6) and Other: See below Intervention & Plan Plan/Intervention: Instruct warm-up & cool-down if exercising at > 2 METs, Instruct on symptoms of exercise intolerance & actions to take, Instruct & monitor on saf, Assess intial functional capacity & safety risk and Other See below 30-day Reassessments 30 day Reassessments:: Progressing Reassessment Notes & Comments:: warm up encouraged Exercise - 60-day Assessment Physician Prescribed Exercise Modalities: SciFit Stepper, SciFit Pro-II Ergometer and SciFit Lateral Property Underwriter Exercise - 90-day Assessment Physician Prescribed Exercise Modalities: SciFit Stepper, SciFit Pro-II Ergometer and SciFit Lateral [place] Exercise - Final/Discharge Physician Prescribed Exercise Modalities: SciFit Stepper, SciFit Pro-II Ergometer and SciFit Lateral Property Underwriter Nutrition - 30-Day Assessment Program Goals Nutrition Program Goals Patient has diagnosis of Hyperlipidemia (ICD E78)?: Yes Visit Date of Eval: 02/20/24 Session #:: 9 Cholesterol/Lipids (Other Core Measures) Determine presence & major risk factors that modify LDL goal: Hypertension or hypertensive medication, Low HDL cholesterol <40 mg/dL*, Family history of premature CHD in Male < 55 years: female <65 yearsFa and Age men > 45 years; women >/= 55 years Outcomes/Goals: Pt IDs own risk factors & lifestyle modifications by Session 10, Verbalizes symptoms of angina & response by session 3., Pt independently manages and Other Additional Outcomes/Goals: Intervention/Plan: Advocate for lipid panel cholesterol medication if applicable, Instruct on personal lipid levels & lipid goals/NCEP guidelines, Instruct on cholesterol and Other additional plan/int 30-day Reassessments:: Progressing Reassessment Notes & Comments:: risk factors reviewed Diabetes (Other Core Measures) Diabetes Type: Diagnosis Type II ICD-10 E11 Hgb A1C (4.2 -6.3): 5.6 Insulin dependent injection/pump?: Yes Non-Insulin Dependent?: Yes Do you monitor your blood sugar at home?: Yes Referral to Diabetic Clinic:: Yes Outcomes/Goals:: Able to state symptoms of, Able to state, Able to state and Other additional Intervention/Plan:: Instruct on, Refer to, Instruct on and Other 30-day Reassessments:: Met Weight Mgt (Other Care) Height: 5 ft 10 in Weight:: 210 lb BMI: 30.1 Diagnosis Overweight/Obesity BMI> 30% ICD-10 E66: Yes Diagnosis High BMI/Morbid Obesity BMI> 35% ICD-10 Z68: No Outcomes/Goals: Pt sets, maintains & shows weight loss goal & trend during rehab and Other additional outcomes/goals Intervention/Plan: Instruct on ideal BMI & set weight loss goal w/patient, Assist pt to ID & incorporate diet changes for weight loss by S9, Refer to Structured Weight Loss program as appropriate, Encourage goal of using 250-300dcal per session for weight loss and Other additional plan/interventions 30 day Reassessments:: Progressing Reassessment Notes & Comments:: pt to attend nutrition class Healthy Eating Habits Will attend diet classes:: Yes Outcomes/Goals:: Consume diet rich in vegs,fruits,whole grain/high fiber,fish,lean meat, Limit sat/trans fats,cholesterol & added salts & sugars and Other additional outcome/goals: Intervention/Plan:: Assess current eating habits and Other Additional plan/interventions 30-day Reassessments:: Progressing Reassessment Notes & Comments:: pt to attend nutrition class Education Gave educational materials for:: Signs & symptoms of hypoglycemia, Signs & symptoms of hyperglycemia, Relate diabetes to coronary artery disease and Healthy eating Nutrition - 60-Day Assessment Weight Mgt (Other Care) Height: 5 ft 10 in Weight:: 210 lb BMI: 30.1 Core - 30-Day Assessment Visit Date of Eval: 02/20/24 Session #:: 9 Medication Compliance Preventative Medication(s):: Aspirin, Clopidogrel/P2Y12 inhibit, Statin/lipid and Beta luan H/O mental health issues: depression, anxiety, or addiction?: No Doesn?t believe in the benefits of treatment?: No Believes medications are unnecessary or harmful?: No Has a concern about medication side effects?: No Expresses concern over the cost of medications?: No Outcomes/Goals: Verbalizes medications,desired effect & common side effects @ DC, Pt self-reports following medication regimen, Keeps card in wallet w/medications listed by DC and Other additional outcome/goals: Interventions/plans: Instruct on medication effects & side effects, Review medication list w/patient every two weeks, Instruct importance of taking meds as ordered & assist problem solving and Other additional 30-day Reassessments:: Progressing Reassessment Notes & Comments:: pt encouraged to take his meds Tobacco Use Tobacco Use: Non-smoker Hypertension Hypertension Diagnosis:: Hypertension ICD-10 I10 Resting Blood Pressure:: 108/58 [place] [employer] Hypertension Guidelines Peak Exercise Blood Pressure:: 158/56 Outcomes/Goals: Able to verbalize/achieve optimal blood pressure <130/80, Incorporates diet changes & exercise for blood pressure control by DC and Other additional outcomes/goals Interventions/plan: Instruct on optimal blood pressure, hypertension & medications, Instruct on effects of sodium, alcohol, stress, exercise &hypertension and Other additional plan/interventions 30 day Reassessments:: Progressing Reassessment Notes & Comments:: pt encouraged to take his meds Tobacco Cessation Referral Smoking Cessation Referral:: No Individual Education/Counseling:: No Education Schedule Given:: Yes Psychosocial - 30-Day Assess VIsit Date of Eval: 02/20/24 Session #:: 9 History of previous Mental disease:: No Target Goals Target Goals Outcomes/Goals: See list Psychosocial Outcomes/Goals:: ID's personal stressors & 2 strategies to manage stress by discharge and Other Additional outcome/goals: Intervention/Plan: See List Interventions/Plan:: Assess stressors,coping strategies & signs of derpression on admission, Instruct/assist pt to develop coping & personal stress Mgt strategies, Refer to Behavioral Health if appropriate, Refer to Physician if appropriate, Instruct patient to recognize signs & symptoms of depression, Instruct patient to recog and Other additional plan/intervention 30-day Reassessments: 30 day Reassessments:: Met Psychosocial - 60-Day Assess Target Goals Target Goals Outcomes/Goals: See list Psychosocial Outcomes/Goals:: ID's personal stressors & 2 strategies to manage stress by discharge and Other Additional outcome/goals: Psychosocial - 90-Day Assess Target Goals Target Goals Psychosocial - Final Assessmen Target Goals Target Goals Nutrition - 90-Day Assessment Weight Mgt (Other Care) Height: 5 ft 10 in Weight:: 210 lb BMI: 30.1 Nutrition - Final Assessment Weight Mgt (Other Care) Height: 5 ft 10 in Weight:: 210 lb BMI: 30.1
[2024-02-20 13:21] VITALS: BP 108/58; BMI 30.1
== END 2024-03-07 23:59 ==
LOC: CR 09:30
PROVIDERS: PCP Family Medicine; Referring Provider Internal Medicine Cardiovascular Disease; Visit Provider Internal Medicine Cardiovascular Disease
DX: Z95.5 Presence of coronary angioplasty implant and graft (principal); I25.10 Atherosclerotic heart disease of native coronary artery without angina pectoris; I21.4 Non-ST elevation (NSTEMI) myocardial infarction
CPT/HCPCS: 93798

== ENCOUNTER 2024-04-06 09:30 | Outpatient (RCR) | payer MEDICARE, OTHER, SELFPAY ==
[2024-02-20 13:21] VITALS: BMI 30.1
[2024-03-08 00:25] VITALS: BP 108/58
[2024-03-23 08:01] VITALS: BMI 30.1
--- NOTE | 2024-03-23 08:01 | PCM.CR.HP2 ---
CR - History & Physical General Arrival date:: 03/23/24 Arrival time:: 08:01 Medications Ambulatory Orders ?Medication ?Instructions ?Recorded aspirin 325 mg tablet 325 mg PO DAILY 09/13/18 blood sugar diagnostic (FreeStyle #10 ea 05/04/22 Lite Strips) insulin glargine 100 unit/mL (3 38 unit subcut QAM 05/04/22 mL) subcutaneous pen (Lantus Solostar U-100 Insulin) pen needle, diabetic 31 gauge x #50 ea 05/04/22 glipizide 5 mg tablet 5 mg PO DAILY 11/24/22 nitroglycerin 0.4 mg sublingual 0.4 mg sublingual Q5-15M PRN CHEST 02/10/23 tablet PAIN #25 tabs clopidogrel 75 mg tablet 75 mg PO QDAY BLOOD THINNER #90 12/19/23 tabs isosorbide mononitrate 60 mg 60 mg PO QDAY BP #90 tabs 01/04/24 tablet,extended release 24 hr atorvastatin 40 mg tablet 40 mg PO QDAY CHOLESTEROL #90 tabs 02/13/24 metoprolol succinate 50 mg 50 mg PO QDAY BP #90 tabs 02/22/24 tablet,extended release 24 hr potassium chloride 8 mEq 8 meq PO DAILY #90 caps 02/22/24 capsule,extended release Allergies Allergies No Known Allergies Allergy (Verified 12/15/23 14:10) Past Medical History Past Medical Illness Medical History Arthritis Atherosclerotic heart disease of [place] coronary artery without angina pectoris Back pain Cancer Cardiology follow-up encounter Dietary restriction Essential hypertension High cholesterol History of echocardiogram History of GI bleed History of stress test Hx of carcinoma in situ of rectum Hyperlipidemia Hypokalemia Insulin dependent diabetes mellitus Non-smoker Nonrheumatic mitral (valve) prolapse Presence of stent in coronary artery (~11/24/23) Rectal cancer Screening for AAA (abdominal aortic aneurysm) Stenosis of right carotid artery Umbilical hernia, incarcerated Wears dentures Wears hearing aid Past Surgical History Surgical History History of basal cell carcinoma excision History of right-sided carotid endarterectomy (~03/13/18) Hx of colonoscopy Presence of coronary angioplasty implant and graft (~07/22/03) Family History Summary Family History Father CAD (coronary artery disease) Diabetes Sister Diabetes Hypertension Grandmother CAD (coronary artery disease) Grandfather CAD (coronary artery disease) Risk Factor Assessment Obesity Height: 5 ft 10 in Weight:: 210 lb Weight in Pounds: 210.0 lbs Body Mass Index (BMI): 30.1 For Smoking Smoking Risk Guidelines For Dyslipidemia Dyslipidemia Risk Guidelines For Diabetes Mellitus Diabetes Risk Guidelines For Obesity/Overweight Obesity/Overweight Risk Guidelines For Hypertension Hypertension Risk Guidelines For Sedentary Lifestyle Sedentary Lifestyle Risk Guidelines For Depression Depression Risk Guidelines Family History Family History Father CAD (coronary artery disease) Diabetes Sister Diabetes Hypertension Grandmother CAD (coronary artery disease) Grandfather CAD (coronary artery disease)
--- NOTE | 2024-03-23 08:03 | CR.ITP_ITS ---
Exercise - Initial Assessment Physician Prescribed Exercise Modalities: SciFit Stepper, SciFit Pro-II Ergometer and SciFit Lateral Psychologist Industrial Organizational Nutrition - Initial Assessment Weight Mgt (Other Care) Height: 5 ft 10 in Weight:: 208 lb BMI: 29.8 Psychosocial - Initial Assess Target Goals Target Goals Patient Health Questionnaire PHQ-9 Screening 60-Day Re-eval Assessment: 1. Little interest or pleasure in doing things: Not at all 2. Feeling down, depressed, or hopeless: Not at all 3. Trouble falling or staying asleep, or sleeping too much: Not at all 4. Feeling tired or having little energy: Not at all 5. Poor appetite or overeating: Nearly every day 6. Feeling bad about yourself -- or that you are a failure or have let yourself or your family down: Not at all 7. Trouble concentrating on things, such as reading the newspaper or watching television: Not at all 8. Moving or speaking so slowly that other people could have noticed. Or the opposite - being so fidgety or restless that you have been moving around a lot more than usual: Not at all 9. Thoughts that you would be better off , or of hurting yourself in some way: Not at all How difficult have these problems made it for you to do your work, take care of things at home, or get along with other people?: Not difficult at all Total Score: 3 Self-Efficacy 6-Item Scale 60-Day Re-eval Assessment: We would like to know how confident you are in doing certain activities. Please select your confidence level for: Fatigue Select Number: 10 Physical Discomfort or Pain Select Number: 10 Emotional Distress Select Number: 10 Other Symptoms or Health Problems Select Number: 10 Different Tasks and Activities Select Number: 10 Medication Select Number: 10 Total Score:: 10 Nutrition Survey Nutrition Survey Instructions Scoring Instructions Exercise - 30-day Assessment Physician Prescribed Exercise Modalities: SciFit Stepper, SciFit Pro-II Ergometer and SciFit Lateral Psychologist Industrial Organizational Exercise - 60-day Assessment Visit Date of Eval: 03/23/24 Session #:: 23 Physician Prescribed Exercise Modalities: SciFit Stepper, SciFit Pro-II Ergometer and SciFit Lateral Psychologist Industrial Organizational Frequency: 3x/week for 12 weeks [36 sessions] Intensity: 60-80% of age predicted maximum heart rate reserve Duration: 30 - 45 minutes Current METSs:: 3.3 Target Heart Rate:: 88-100 Current RPE:: 13-13.5 Maximum Excercise HR:: 95 Resting Blood Pressure: 130/58 Maximum Exercise Blood Pressure: 150/60 EKG Type: NSR w/ 1st degree AV block with rare pac's, rare pvc's Outcomes & Goals Goals:: Verbalizes understanding of THR, RPE & goal METS by session 6, Documents in home exercise log/reports 30 min aerobic 5 day/wk by DC, Demonstrates accurate pulse taking by DC and Other additional outcome/goals: see below Intervention & Plan Exercise Program Goals: Instruct on personal THR & RPE, Instruct on MET level & personal MET goal, Show patient to take own pulse /validate performance until accurate, Instruct on home exercise and Other additional plan/int 30-day Reassessments 30 day Reassessments:: Progressing Reassessment Notes & Comments:: THR explained Physical Activity Home Exercise Physical Activity - Home Exercise: Safe Exercise, Warm-up, Self-monitoring, Cool-Down, Home Exercise > 30 min Daily and Sitting Time <3 hours/daily Outcomes & Goals Outcomes/Goals: Demonstrates correct Warm-up/exercise Cool-Down (S3) if = 2.5 METs, Verbalizes symptoms of exercise intolerance by Session 3 (S3), Demonstrate safe equipment use (S3) & follows exercise prescrition (6) and Other: See below Intervention & Plan Plan/Intervention: Instruct warm-up & cool-down if exercising at > 2 METs, Instruct on symptoms of exercise intolerance & actions to take, Instruct & monitor on saf, Assess intial functional capacity & safety risk and Other See below 30-day Reassessments 30 day Reassessments:: Progressing Reassessment Notes & Comments:: proper cool down encouraged Exercise - 90-day Assessment Physician Prescribed Exercise Modalities: SciFit Stepper, SciFit Pro-II Ergometer and SciFit Lateral Psychologist Industrial Organizational Exercise - Final/Discharge Physician Prescribed Exercise Modalities: SciFit Stepper, SciFit Pro-II Ergometer and SciFit Lateral Psychologist Industrial Organizational Nutrition - 30-Day Assessment Weight Mgt (Other Care) Height: 5 ft 10 in Weight:: 208 lb BMI: 29.8 Nutrition - 60-Day Assessment Program Goals Nutrition Program Goals Patient has diagnosis of Hyperlipidemia (ICD E78)?: Yes Visit Date of Eval: 03/23/24 Session #:: 23 Cholesterol/Lipids (Other Core Measures) Determine presence & major risk factors that modify LDL goal: Hypertension or hypertensive medication, Low HDL cholesterol <40 mg/dL*, Family history of premature CHD in Male < 55 years: female <65 yearsFa and Age men > 45 years; women >/= 55 years Outcomes/Goals: Pt IDs own risk factors & lifestyle modifications by Session 10, Verbalizes symptoms of angina & response by session 3., Pt independently manages and Other Additional Outcomes/Goals: Intervention/Plan: Advocate for lipid panel cholesterol medication if applicable, Instruct on personal lipid levels & lipid goals/NCEP guidelines, Instruct on cholesterol and Other additional plan/int 30-day Reassessments:: Progressing Reassessment Notes & Comments:: pt to attend nutrition class Diabetes (Other Core Measures) Diabetes Type: Diagnosis Type II ICD-10 E11 Insulin dependent injection/pump?: Yes Non-Insulin Dependent?: Yes Do you monitor your blood sugar at home?: Yes Referral to Diabetic Clinic:: Yes Outcomes/Goals:: Able to state symptoms of, Able to state, Able to state and Other additional Intervention/Plan:: Instruct on, Refer to, Instruct on and Other 30-day Reassessments:: Met Weight Mgt (Other Care) Height: 5 ft 10 in Weight:: 208 lb BMI: 29.8 Diagnosis Overweight/Obesity BMI> 30% ICD-10 E66: No Diagnosis High BMI/Morbid Obesity BMI> 35% ICD-10 Z68: No Outcomes/Goals: Pt sets, maintains & shows weight loss goal & trend during rehab and Other additional outcomes/goals Intervention/Plan: Instruct on ideal BMI & set weight loss goal w/patient, Assist pt to ID & incorporate diet changes for weight loss by S9, Refer to Structured Weight Loss program as appropriate, Encourage goal of using 250- 300dcal per session for weight loss and Other additional plan/interventions 30 day Reassessments:: Progressing Reassessment Notes & Comments:: p tto attend nutrition class Healthy Eating Habits Will attend diet classes:: Yes Outcomes/Goals:: Consume diet rich in vegs,fruits,whole grain/high fiber,fish,lean meat, Limit sat/trans fats,cholesterol & added salts & sugars and Other additional outcome/goals: Intervention/Plan:: Assess current eating habits and Other Additional plan/interventions 30-day Reassessments:: Progressing Reassessment Notes & Comments:: pt to attend nutrition class Education Gave educational materials for:: Signs & symptoms of hypoglycemia, Signs & symptoms of hyperglycemia, Relate diabetes to coronary artery disease and Healthy eating Core - 60-Day Assessment Visit Date of Eval: 03/23/24 Session #:: 23 Medication Compliance Preventative Medication(s):: Aspirin, Clopidogrel/P2Y12 inhibit, Statin/lipid and Beta luan H/O mental health issues: depression, anxiety, or addiction?: No Doesn?t believe in the benefits of treatment?: No Believes medications are unnecessary or harmful?: No Has a concern about medication side effects?: No Expresses concern over the cost of medications?: No Outcomes/Goals: Verbalizes medications,desired effect & common side effects @ DC, Pt self-reports following medication regimen, Keeps card in wallet w/medications listed by DC and Other additional outcome/goals: Interventions/plans: Instruct on medication effects & side effects, Review medication list w/patient every two weeks, Instruct importance of taking meds as ordered & assist problem solving and Other additional 30-day Reassessments:: Progressing Reassessment Notes & Comments:: pt encouraged to take his meds Tobacco Use Tobacco Use: Non-smoker Hypertension Hypertension Diagnosis:: Hypertension ICD-10 I10 Resting Blood Pressure:: 130/58 [place] [employer] Hypertension Guidelines Peak Exercise Blood Pressure:: 150/60 Outcomes/Goals: Able to verbalize/achieve optimal blood pressure <130/80, Incorporates diet changes & exercise for blood pressure control by DC and Other additional outcomes/goals Interventions/plan: Instruct on optimal blood pressure, hypertension & medications, Instruct on effects of sodium, alcohol, stress, exercise &hypertension and Other additional plan/interventions 30 day Reassessments:: Progressing Reassessment Notes & Comments:: Pt encouraged to take his meds Tobacco Cessation Referral Smoking Cessation Referral:: No Individual Education/Counseling:: No Education Schedule Given:: Yes Psychosocial - 30-Day Assess Target Goals Target Goals Outcomes/Goals: See list Psychosocial Outcomes/Goals:: ID's personal stressors & 2 strategies to manage stress by discharge and Other Additional outcome/goals: Psychosocial - 60-Day Assess VIsit Date of Eval: 03/23/24 Session #:: 23 History of previous Mental disease:: No Target Goals Target Goals Outcomes/Goals: See list Psychosocial Outcomes/Goals:: ID's personal stressors & 2 strategies to manage stress by discharge and Other Additional outcome/goals: Intervention/Plan: See List Interventions/Plan:: Assess stressors,coping strategies & signs of derpression on admission, Instruct/assist pt to develop coping & personal stress Mgt strategies, Refer to Behavioral Health if appropriate, Refer to Physician if appropriate, Instruct patient to recognize signs & symptoms of depression, Instruct patient to recog and Other additional plan/intervention 30-day Reassessments: 30 day Reassessments:: Met Psychosocial - 90-Day Assess Target Goals Target Goals Psychosocial - Final Assessmen Target Goals Target Goals Nutrition - 90-Day Assessment Weight Mgt (Other Care) Height: 5 ft 10 in Weight:: 208 lb BMI: 29.8 Nutrition - Final Assessment Weight Mgt (Other Care) Height: 5 ft 10 in Weight:: 208 lb BMI: 29.8
[2024-03-23 08:13] VITALS: BP 130/58; BMI 29.8
== END 2024-04-07 23:59 ==
LOC: CR 09:30
PROVIDERS: PCP Family Medicine; Referring Provider Internal Medicine Cardiovascular Disease; Visit Provider Internal Medicine Cardiovascular Disease
DX: Z95.5 Presence of coronary angioplasty implant and graft (principal); I25.10 Atherosclerotic heart disease of native coronary artery without angina pectoris; I21.4 Non-ST elevation (NSTEMI) myocardial infarction
CPT/HCPCS: 93798

== ENCOUNTER 2024-04-23 09:30 | Outpatient (RCR) | payer MEDICARE, OTHER, SELFPAY ==
[2024-03-23 08:13] VITALS: BMI 29.8
[2024-04-08 00:43] VITALS: BP 108/58; BP 130/58; BMI 30.1
--- NOTE | 2024-04-24 07:32 | PCM.CR.ITP ---
Exercise - Initial Assessment Physician Prescribed Exercise Modalities: Treadmill, SciFit Stepper and SciFit Pro-II Ergometer Nutrition - Initial Assessment Weight Mgt (Other Care) Height: 5 ft 10 in Weight:: 208 lb BMI: 29.8 Psychosocial - Initial Assess Target Goals Target Goals Referral to Behavioral Health PS - Interventions: Yes: Referral to Behavioral Health if PHQ-9 score >9:, Yes: [facility]erral to [facility], Yes: Referral to Physician if PHQ-9 if score is 5-9: and Yes: Attend Stress Management Classes Patient Health Questionnaire PHQ-9 Screening 90-Day Re-eval Assessment: 1. Little interest or pleasure in doing things: Not at all 2. Feeling down, depressed, or hopeless: Not at all 3. Trouble falling or staying asleep, or sleeping too much: Not at all 4. Feeling tired or having little energy: Not at all 5. Poor appetite or overeating: Nearly every day 6. Feeling bad about yourself -- or that you are a failure or have let yourself or your family down: Not at all 7. Trouble concentrating on things, such as reading the newspaper or watching television: Not at all 8. Moving or speaking so slowly that other people could have noticed. Or the opposite - being so fidgety or restless that you have been moving around a lot more than usual: Not at all 9. Thoughts that you would be better off , or of hurting yourself in some way: Not at all How difficult have these problems made it for you to do your work, take care of things at home, or get along with other people?: Not difficult at all Total Score: 3 Self-Efficacy 6-Item Scale 90-Day Re-eval Assessment: We would like to know how confident you are in doing certain activities. Please select your confidence level for: Fatigue Select Number: 10 Physical Discomfort or Pain Select Number: 10 Emotional Distress Select Number: 10 Other Symptoms or Health Problems Select Number: 10 Different Tasks and Activities Select Number: 10 Medication Select Number: 10 Total Score:: 10 Nutrition Survey Nutrition Survey Instructions Scoring Instructions Exercise - 30-day Assessment Physician Prescribed Exercise Modalities: Treadmill, SciFit Stepper and SciFit Pro-II Ergometer Exercise - 60-day Assessment Physician Prescribed Exercise Modalities: Treadmill, SciFit Stepper and SciFit Pro-II Ergometer Exercise - 90-day Assessment Visit Date of Eval: 04/24/24 Session #:: 36 Physician Prescribed Exercise Modalities: Treadmill, SciFit Stepper and SciFit Pro-II Ergometer Frequency: 3x/week for 12 weeks [36 sessions] Intensity: 60-80% of age predicted maximum heart rate reserve Duration: 30 - 45 minutes Current METSs:: 4.6 Target Heart Rate:: 88-100 Current RPE:: 13-13.5 Maximum Excercise HR:: 90 Resting Blood Pressure: 138/58 Maximum Exercise Blood Pressure: 152/58 EKG Type: NSR with 1st degree AV blockwith rare pacs, rare pvcs Outcomes & Goals Goals:: Verbalizes understanding of THR, RPE & goal METS by session 6, Documents in home exercise log/reports 30 min aerobic 5 day/wk by DC, Demonstrates accurate pulse taking by DC and Other additional outcome/goals: see below Intervention & Plan Exercise Program Goals: Instruct on personal THR & RPE, Instruct on MET level & personal MET goal, Show patient to take own pulse /validate performance until accurate, Instruct on home exercise and Other additional plan/int 30-day Reassessments 30 day Reassessments:: Met Physical Activity Home Exercise Physical Activity - Home Exercise: Safe Exercise, Warm-up, Self-monitoring, Cool-Down, Home Exercise > 30 min Daily and Sitting Time <3 hours/daily Outcomes & Goals Outcomes/Goals: Demonstrates correct Warm-up/exercise Cool-Down (S3) if = 2.5 METs, Verbalizes symptoms of exercise intolerance by Session 3 (S3), Demonstrate safe equipment use (S3) & follows exercise prescrition (6) and Other: See below Intervention & Plan Plan/Intervention: Instruct warm-up & cool-down if exercising at > 2 METs, Instruct on symptoms of exercise intolerance & actions to take, Instruct & monitor on saf, Assess intial functional capacity & safety risk and Other See below 30-day Reassessments 30 day Reassessments:: Met Exercise - Final/Discharge Physician Prescribed Exercise Modalities: Treadmill, SciFit Stepper and SciFit Pro-II Ergometer Nutrition - 30-Day Assessment Weight Mgt (Other Care) Height: 5 ft 10 in Weight:: 208 lb BMI: 29.8 Nutrition - 60-Day Assessment Weight Mgt (Other Care) Height: 5 ft 10 in Weight:: 208 lb BMI: 29.8 Core - 90 Day Assessment Medication Compliance Preventative Medication(s):: Aspirin, Clopidogrel/P2Y12 inhibit, Statin/lipid and Beta luan H/O mental health issues: depression, anxiety, or addiction?: No Doesn?t believe in the benefits of treatment?: No Believes medications are unnecessary or harmful?: No Has a concern about medication side effects?: No Expresses concern over the cost of medications?: No Outcomes/Goals: Verbalizes medications,desired effect & common side effects @ DC, Pt self-reports following medication regimen, Keeps card in wallet w/medications listed by DC and Other additional outcome/goals: Interventions/plans: Instruct on medication effects & side effects, Review medication list w/patient every two weeks, Instruct importance of taking meds as ordered & assist problem solving and Other additional 30-day Reassessments:: Met Tobacco Use Tobacco Use: Non-smoker 30-day Reassessments:: Met Hypertension Hypertension Diagnosis:: Hypertension ICD-10 I10 Resting Blood Pressure:: 138/58 [place] [employer] Hypertension Guidelines Peak Exercise Blood Pressure:: 152/58 Outcomes/Goals: Able to verbalize/achieve optimal blood pressure <130/80, Incorporates diet changes & exercise for blood pressure control by DC and Other additional outcomes/goals Interventions/plan: Instruct on optimal blood pressure, hypertension & medications, Instruct on effects of sodium, alcohol, stress, exercise &hypertension and Other additional plan/interventions 30 day Reassessments:: Met Tobacco Cessation Referral Smoking Cessation Referral:: No Individual Education/Counseling:: No Education Schedule Given:: Yes Psychosocial - 30-Day Assess Target Goals Target Goals Referral to Behavioral Health PS - Interventions: Yes: Referral to Behavioral Health if PHQ-9 score >9:, Yes: [facility], Yes: Referral to Physician if PHQ-9 if score is 5-9: and Yes: Attend Stress Management Classes Psychosocial - 60-Day Assess Target Goals Target Goals Referral to Behavioral Health PS - Interventions: Yes: Referral to Behavioral Health if PHQ-9 score >9:, Yes: [facility], Yes: Referral to Physician if PHQ-9 if score is 5-9: and Yes: Attend Stress Management Classes Psychosocial - 90-Day Assess VIsit Date of Eval: 04/24/24 Session #:: 36 History of previous Mental disease:: No Target Goals Target Goals Psychosocial Test Tool Used:: [employer] QOL Cardiac and PHQ-9 Questionnaire phq-9 Severity Referral to Behavioral Health PS - Interventions: Yes: Referral to Behavioral Health if PHQ-9 score >9:, Yes: Referral to [facility], Yes: Referral to Physician if PHQ-9 if score is 5-9: and Yes: Attend Stress Management Classes Outcomes/Goals: See list Psychosocial Outcomes/Goals:: ID's personal stressors & 2 strategies to manage stress by discharge and Other Additional outcome/goals: Intervention/Plan: See List Interventions/Plan:: Assess stressors,coping strategies & signs of derpression on admission, Instruct/assist pt to develop coping & personal stress Mgt strategies, Refer to Behavioral Health if appropriate, Refer to Physician if appropriate, Instruct patient to recognize signs & symptoms of depression, Instruct patient to recog and Other additional plan/intervention 30-day Reassessments: 30 day Reassessments:: Met Psychosocial - Final Assessmen Target Goals Target Goals Referral to Behavioral Health PS - Interventions: Yes: Referral to Behavioral Health if PHQ-9 score >9:, Yes: Referral to [facility], Yes: Referral to Physician if PHQ-9 if score is 5-9: and Yes: Attend Stress Management Classes Nutrition - 90-Day Assessment Program Goals Nutrition Program Goals Patient has diagnosis of Hyperlipidemia (ICD E78)?: Yes Visit Date of Eval: 04/24/24 Session #:: 36 Cholesterol/Lipids (Other Core Measures) Determine presence & major risk factors that modify LDL goal: Hypertension or hypertensive medication, Low HDL cholesterol <40 mg/dL*, Family history of premature CHD in Male < 55 years: female <65 yearsFa and Age men > 45 years; women >/= 55 years Outcomes/Goals: Pt IDs own risk factors & lifestyle modifications by Session 10, Verbalizes symptoms of angina & response by session 3., Pt independently manages and Other Additional Outcomes/Goals: Intervention/Plan: Advocate for lipid panel cholesterol medication if applicable, Instruct on personal lipid levels & lipid goals/NCEP guidelines, Instruct on cholesterol and Other additional plan/int 30-day Reassessments:: Met Diabetes (Other Core Measures) Diabetes Type: Diagnosis Type II ICD-10 E11 Insulin dependent injection/pump?: Yes Non-Insulin Dependent?: Yes Do you monitor your blood sugar at home?: Yes Referral to Diabetic Clinic:: Yes Outcomes/Goals:: Able to state symptoms of, Able to state, Able to state and Other additional Intervention/Plan:: Instruct on, Refer to, Instruct on and Other 30-day Reassessments:: Met Weight Mgt (Other Care) Height: 5 ft 10 in Weight:: 208 lb BMI: 29.8 Diagnosis Overweight/Obesity BMI> 30% ICD-10 E66: No Diagnosis High BMI/Morbid Obesity BMI> 35% ICD-10 Z68: No Outcomes/Goals: Pt sets, maintains & shows weight loss goal & trend during rehab and Other additional outcomes/goals Intervention/Plan: Instruct on ideal BMI & set weight loss goal w/patient, Assist pt to ID & incorporate diet changes for weight loss by S9, Refer to Structured Weight Loss program as appropriate, Encourage goal of using 250-300dcal per session for weight loss and Other additional plan/interventions 30 day Reassessments:: Met Healthy Eating Habits Will attend diet classes:: Yes Outcomes/Goals:: Consume diet rich in vegs,fruits,whole grain/high fiber,fish,lean meat, Limit sat/trans fats,cholesterol & added salts & sugars and Other additional outcome/goals: Intervention/Plan:: Assess current eating habits and Other Additional plan/interventions 30-day Reassessments:: Met Education Gave educational materials for:: Signs & symptoms of hypoglycemia, Signs & symptoms of hyperglycemia, Relate diabetes to coronary artery disease and Healthy eating Nutrition - Final Assessment Weight Mgt (Other Care) Height: 5 ft 10 in Weight:: 208 lb BMI: 29.8
[2024-04-24 07:39] VITALS: BP 138/58; BMI 29.8
== END 2024-05-07 23:59 ==
LOC: CR 09:30
PROVIDERS: PCP Family Medicine; Referring Provider Internal Medicine Cardiovascular Disease; Visit Provider Internal Medicine Cardiovascular Disease
DX: I25.10 Atherosclerotic heart disease of native coronary artery without angina pectoris (principal); I21.4 Non-ST elevation (NSTEMI) myocardial infarction; Z95.5 Presence of coronary angioplasty implant and graft
CPT/HCPCS: 93798

== ENCOUNTER → 2024-05-18 | Outpatient (CLI) | payer MEDICARE, OTHER, SELFPAY ==
[2024-04-24 07:39] VITALS: BMI 29.8
[2024-05-18 17:58] LABS: Absolute Lymphocyte Count 1.13 X10^3/uL (0.83-4.51); Basophil# 0.04 X10^3/uL; Basophil% 0.6 % (0-1); Eosinophil# 0.21 X10^3/uL; Eosinophils% 3.4 % (0-5); Hematocrit 44.5 % (40-54); Lymphocyte # 1.13 X10^3/ul (0.83-4.51); Lymphocyte % 18.3 % (19-41); Mean Corp Hgb Conc 31.5 g/dL (32-36); Mean Corpuscular Hgb 26.6 pg (27.0-32.0); Mean Corpuscular Volume 84.6 fL (80-94); Mean Platelet Vol. 10.3 fl (6.2-12.0); Monocyte# 0.74 X10^3/uL; NRBC Flagged by Analyzer 0 % (0-5); Neutrophil # 4.02 X10^3/uL (2.7-7.7); Neutrophil % 65.4 % (47-70); Platelet Count 266 K/mm3 (150-450); RBC Distribution Width SD 52.5 fl (35.1-43.9); Red Blood Count 5.26 M/mm3 (4.6-6.2); White Blood Count 6.2 K/mm3 (4.4-11.0)
[2024-05-18 18:05] LABS: ALB/GLOB Ratio 0.9 RATIO (0.9-2.4); AST(SGOT) 18 U/L (15-37); Alanine Aminotransfer ALT/SGPT 23 U/L (16-61); Albumin, Serum 3.3 g/dL (3.2-5.0); Alkaline Phosphatase 108 U/L (45-117); Anion Gap 4 (5-15); BUN 17 mg/dL (7-18); BUN/Creat Ratio 15.2 RATIO (10-20); Calcium,Total 8.8 mg/dL (8.5-10.1); Chloride 109 mmol/L (98-107); Cholesterol 109 mg/dL (200); Creatinine, Serum 1.12 mg/dL (0.70-1.30); EST Glomerular Filtration Rate 66 mL/min (>60); Est Glom Filt Rate - Afr Amer 80 mL/min (>60); Globulin 3.6 g/dL (2.2-4.2); Glucose 128 mg/dL (74-106); High Density Lipoprotein 35 mg/dL; Potassium 3.9 mmol/L (3.5-5.1); Protein, Total 6.9 g/dL (6.4-8.2); Sodium Level 139 mmol/L (136-145); Triglycerides 100 mg/dL; Very Low Density Lipoprotein 20 mg/dL (5-40)
== END | disposition home or self-care (01) ==
LOC: BFHLAB 14:38
PROVIDERS: PCP Family Medicine; Referring Provider Family Medicine; Visit Provider Family Medicine
DX: I25.10 Atherosclerotic heart disease of native coronary artery without angina pectoris (principal); E11.9 Type 2 diabetes mellitus without complications; I10 Essential (primary) hypertension
CPT/HCPCS: 36415; 80053; 80061; 85025

== ENCOUNTER → 2024-10-23 | Outpatient (CLI) | payer MEDICARE, OTHER, SELFPAY ==
[2024-10-23 11:04] LABS: Anion Gap 8 (5-15); BUN 21 mg/dL (4-19); Calcium,Total 9.2 mg/dL (7.6-11.0); Carbon Dioxide 24.6 mmol/L (21.0-32.0); Chloride 101 mmol/L (98-108); Creatinine, Serum 1.22 mg/dL (0.70-1.20); EST Glomerular Filtration Rate 57 (>60); Glucose 240 mg/dL (70-99); Potassium 4.3 mmol/L (3.3-5.1); Sodium Level 133 mmol/L (133-145)
== END | disposition home or self-care (01) ==
LOC: LAB 09:57
PROVIDERS: PCP Family Medicine; Referring Provider Internal Medicine Cardiovascular Disease; Visit Provider Internal Medicine Cardiovascular Disease
DX: I10 Essential (primary) hypertension (principal)
CPT/HCPCS: 36415; 80048

== ENCOUNTER 2024-12-12 09:45 | Inpatient (IN) | payer MEDICARE, OTHER, SELFPAY ==
[2024-12-12] VITALS (11 sets, daily range): BP systolic 132–166; BP diastolic 61–116; PULSE 74–104; RESP 12–28; TEMP 36.6–37.4; O2SAT 94–98; BMI 31.7; BMI 30.6
--- NOTE | 2024-12-12 10:35 | EKG12_ITS ---
Test Reason : SOB Blood Pressure : */* mmHG Vent. Rate : 96 BPM Atrial Rate : 96 BPM P-R Int : 222 ms QRS Dur : 102 ms QT Int : 388 ms P-R-T Axes : 106 -26 93 degrees QTcB Int : 490 ms Sinus rhythm with 1st degree A-V block Abnormal QRS-T angle, consider primary T wave abnormality Prolonged QT Abnormal ECG Confirmed by Blair Falk [id number]), technical editor VIANEY MANCILLA ([id number]) on 12/14/2024 12:23:47 PM Referred By: Confirmed By: Blair Falk
--- NOTE | 2024-12-12 10:35 | RAD_ITS ---
PROCEDURE: CHEST PA AND LATERAL, 12/12/2024 REASON FOR EXAM: SOB TECHNIQUE: PA and lateral views of the chest were obtained. COMPARISON: 11/21/2023 FINDINGS: Heart: Similar suspected mild cardiomegaly, partially obscured. Mediastinum: Atherosclerosis. Mild central vascular prominence. Hilar prominence may reflect enlargement of the pulmonary arteries. Lungs/pleura: Small LEFT and suspected trace RIGHT pleural effusions. Mild adjacent airspace disease, [id number]. No visible pneumothorax. Bones: Multilevel spondylosis. Lines and support devices: None. Other: None. RAD/Chest PA and Lateral IMPRESSION: 1. Mild cardiomegaly with small LEFT and suspected trace RIGHT pleural effusion s. 2. Adjacent mild bibasilar airspace disease may reflect compressive atelectasis versus pneumonia. Attention on below recommended outpatient imaging to ensure resolution. 3. Mild hilar prominence could reflect pulmonary arterial enlargement however r ecommend outpatient CT chest with contrast as hilar lymphadenopathy may appear similarly, unless outside imaging is available to establish long-term stability or further delineate. 4. Additional description as above. Reading Location: [id number]
--- NOTE | 2024-12-12 10:49 | EDS_ITS ---
HPI History of Present Illness Chief Complaint: Shortness of Breath Informant: patient and family Narrative Narrative: Patient is an 89-year-old male with history of coronary artery disease, hypertension, hyperlipidemia and insulin-dependent diabetes mellitus presenting with shortness of breath. Patient states he woke up around 4 AM and did his normal routine of going to the bathroom, checking his daily weights and make himself breakfast. He states around 530 he started to get short of breath but was not short of breath when he first woke up. He took his regular medications at 8 AM. Came to the ER for further evaluation. Did receive aerosol treatment and route with improvement of his breathing almost immediately. Was placed on 2 L of nasal cannula. Patient notes he does not normally wear oxygen. States he is overall been in his normal state of health last week or so. Did have some left-sided tooth pain but that had resolved. No fevers or chills reported. No swelling of his legs reported. States that his weight is doing good and he is around 202 which is his goal weight. Notes last time he was admitted to the hospital his weight was in the 220s. No sick contacts reported. No URI symptoms reported. [facility] Medical History Hypokalemia Wears hearing aid Wears dentures Cancer Insulin dependent diabetes mellitus Arthritis High cholesterol Back pain Dietary restriction Hx of carcinoma in situ of rectum Non-smoker History of echocardiogram History of stress test Cardiology follow-up encounter Umbilical hernia, incarcerated Screening for AAA (abdominal aortic aneurysm) Essential hypertension Stenosis of right carotid artery Nonrheumatic mitral (valve) prolapse Hyperlipidemia Presence of stent in coronary artery (~11/24/23) Atherosclerotic heart disease of [place] coronary artery without angina pectoris History of GI bleed Rectal cancer Home Medications ?Medication ?Instructions ?Recorded ?Last Taken ?Type blood sugar diagnostic (FreeStyle #10 ea 05/04/22 Unkn own History Lite Strips) pen needle, diabetic 31 gauge x #50 ea 05/04/22 Unknow n History glipizide 5 mg tablet 5 mg PO DAILY 11/24/2211/20 History nitroglycerin 0.4 mg sublingual 0.4 mg sublingual Q5-1 5M PRN CHEST 02/10/23 Unknown Rx tablet PAIN #25 tabs clopidogrel 75 mg tablet 75 mg PO QDAY BLOOD THINNER #90 12/19/23 Unknown Rx tabs isosorbide mononitrate 60 mg 60 mg PO QDAY BP #90 tabs 01/04/24 Unknown Rx tablet,extended release 24 hr atorvastatin 40 mg tablet 40 mg PO QDAY CHOLESTEROL #9 0 tabs 02/13/24 Unknown Rx metoprolol succinate 50 mg 50 mg PO QDAY BP #90 tabs 0 02/22/24 Unknown Rx tablet,extended release 24 hr potassium chloride 8 mEq 8 meq PO DAILY #90 caps 02/05 02/28 Unknown Rx capsule,extended release aspirin 81 mg tablet,delayed 81 mg PO QDAY 10/16/24 Un known History release (Adult Aspirin Regimen) insulin glargine 100 unit/mL (3 20 unit subcut QAM 07/02 Unknown History mL) subcutaneous pen (Lantus Solostar U-100 Insulin) lisinopril 5 mg tablet 5 mg PO QDAY #90 tabs Unknown Rx Allergy/AdvReac Type Severity Reaction Status Date / Time No Known Allergies Allergy Verified 12/12/24 09:49 Family History Father CAD (coronary artery disease) Diabetes Sister Diabetes Hypertension Grandmother CAD (coronary artery disease) Grandfather CAD (coronary artery disease) Surgical History Hx of colonoscopy History of basal cell carcinoma excision Presence of coronary angioplasty implant and graft (~07/22/03) History of right-sided carotid endarterectomy (~03/13/18) Social History household members: [facility] Smoking Status: Never smoker alcohol intake: never substance use type: does not use ROS ROS ED Constitutional Constitutional ED: Denies chills or fever(s) Eyes Eyes: Denies change in vision ENT ENT ED: Denies ear pain, rhinorrhea or sore throat Cardiovascular Cardiovascular: Denies chest pain Respiratory/Chest Respiratory/Chest: Reports cough, dyspnea and dyspnea on exertion; Denies sputum Gastrointestinal Gastrointestinal: Denies abdominal pain, nausea or vomiting Genitourinary Genitourinary ED: Denies dysuria or hematuria Musculoskeletal Musculoskeletal: Denies arthralgias or myalgias Integumentary Denies rash Neurologic Neurologic: Denies weakness Hematologic/Lymphatic Hematologic/Lymphatic: Denies easy bleeding or easy bruising EXAM Physical Exam Const Vital Signs: 12/12/24 09:49 12/12/24 09:52 12/12/24 10:35 Temperature 98.0 F 98 F Temperature Source Oral Oral Pulse Rate 104 H 104 H 97 Respiratory Rate 18 18 28 H Blood Pressure 166/116 H 166/116 H 163/65 H Blood Pressure Mean 132 132 97 Pulse Ox 98 98 95 Oxygen Delivery Method Room Air Room Air Nasal Cannula Oxygen Flow Rate (L/min) 2 12/12/24 10:57 12/12/24 12:07 12/12/24 14:12 Temperature 99.4 F H 99.4 F H Temperature Source Oral Oral Pulse Rate 92 87 90 Respiratory Rate 24 H 16 18 Blood Pressure 143/81 H 132/61 H 163/90 H Blood Pressure Mean 101 84 114 Pulse Ox 95 94 96 Oxygen Delivery Method Room Air Room Air Room Air Oxygen Flow Rate (L/min) 12/12/24 14:45 Temperature 98.9 F Temperature Source Oral Pulse Rate 87 Respiratory Rate 12 Blood Pressure 142/62 H Blood Pressure Mean 88 Pulse Ox 95 Oxygen Delivery Method Room Air Oxygen Flow Rate (L/min) Positive well nourished and well developed General Appearance ED: well developed and NAD; Negative for pallor HEENT Reports moist mucous membranes Eyes PERRL Neck supple and no JVD Resp normal respiratory effort Resp Narrative: Mildly coarse breath sounds with faint and x-ray wheezing present. Auscultation: Negative for diminished lung sounds Cardio regular rate and regular rhythm GI non-tender GI Narrative: Protuberant abdomen Auscultation: normoactive bowel sounds Palpation: soft; Negative for tender or guarding Extremity normal to inspection General Extremety ED: Negative for edema or tenderness General Extremity: Negative for edema Neuro oriented x3 Sensorium / Orientation: alert Motor Exam: Negative for general weakness Psych mental status grossly normal Skin no wounds General Skin Exam: Negative for pallor MDM MDM MDM Narrative Medical decision making narrative: Patient evaluated sudden onset of shortness of breath occurred this morning. EMS arrived he was given a breathing treatment started feel better. He arrived here but does not normally wear home O2. Is not clear if the breathing treatment or other supplemental oxygen is what made him feel better. Differential includes ACS, pneumonia, pleural effusion, pulmonary emboli, heart failure exacerbation and pneumothorax. Workup including CBC, D-dimer, BMP, high-sensitivity troponin and BNP is obtained. Patient CBC is normal. D-dimer is normal at 0.48. His BMP is largely normal with no significant electrolyte derangement. His high- sensitivity troponin is elevated at 252 and then on repeat 244. EKG does not show acute ischemic changes. His BNP is also elevated at 2149. Chest x-ray reviewed by myself as well as radiology shows mild cardiomegaly with small left and suspected trace right pleural effusions and compressive atelectasis versus pneumonia. Given his elevated troponin and BNP with no other obvious cause no history of heart failure CTA is added on even though his D-dimer is normal. This also gives further evaluation of the lung parenchyma. CTA does not show any large central pulmonary emboli but does show small to moderate bilateral pleural effusions with relative dilation of the left atrium. Suspect this is likely associated with his shortness of breath. I did discuss the case with cardiology on-call, Dr. Falk. He is not sure if this is a primary cardiac versus pulmonary issue. He is agreeable with admission but has no specific recommendations at this time. Instructs to have medicine consult as needed. Patient will be admitted for further cardiorespiratory evaluation and treatment. He is agreeable. Case discussed with hospitalist, Dr. De Dios for admission peer History & Record Review Additional record(s) reviewed:: Prior outpatient record and Other (Cardiology note with Dr. Barker on 10/16/2024-coronary disease status post NSTEMI. Tolerating medications well.) Lab Data Attestation: I reviewed the patient's lab results. Labs: Laboratory Results - last 24 hr 12/12/24 12/12/24 10:30 12:28 WBC 8.8 RBC 5.18 Hgb 15.5 Hct 46.1 MCV 89.0 MCH 29.9 MCHC 33.6 RDW Std Deviation 43.8 RDW Coeff of Christiano 13.5 Plt Count 198 MPV 9.7 Immature Gran % (Auto) 0.200 Neut % (Auto) 77.1 H Lymph % (Auto) 14.3 L [place] % (Auto) 7.1 Eos % (Auto) 1.0 Baso % (Auto) 0.3 Absolute Neuts (auto) 6.8 Absolute Lymphs (auto) 1.26 Nucleated RBC % 0 D-Dimer Quant (PE/DVT) 0.48 Sodium 134 Potassium 4.1 Chloride 104 Carbon Dioxide 19.6 L Anion Gap 11 BUN 15 Creatinine 1.13 Estim Creat Clear Calc 53.66 Est GFR (MDRD) Non-Af 63 BUN/Creatinine Ratio 13.2 Glucose 224 H Calcium 8.2 Troponin T High Sens 252 H* Troponin T Hi Sens 2 Hr 244 H* NT pro BNP II 2149 H Radiography Diagnostic Testing: Clinical Impression(s) from Imaging Studies Chest X-Ray 12/12/24 10:35 IMPRESSION: 1. Mild cardiomegaly with small LEFT and suspected trace RIGHT pleural effusions. 2. Adjacent mild bibasilar airspace disease may reflect compressive atelectasis versus pneumonia. Attention on below recommended outpatient imaging to ensure resolution. 3. Mild hilar prominence could reflect pulmonary arterial enlargement however recommend outpatient CT chest with contrast as hilar lymphadenopathy may appear similarly, unless outside imaging is available to establish long-term stability or further delineate. 4. Additional description as above. Reading Location: [facility] Chest CTA 12/12/24 13:19 IMPRESSION: 1. Somewhat motion limited exam. No central or definite pulmonary embolism identified allowing for limitations. 2. Small/moderate bilateral pleural effusions. Overall heart size is top-normal with relative dilatation of the LEFT atrium. 3. Mild mediastinal lymphadenopathy, nonspecific and potentially reactive in the absence of known malignancy. Correlate with medical history and follow-up as indicated. 4. Additional description as above. Reading Location: [facility] Rhythm Strip Rhythm Strip: Sinus Rhythm Rate: 96 Ectopy: None EKG Initial EKG: Attestation: I personally reviewed and interpreted this EKG as follows: Interpretation: Sinus Rhythm Comments: Normal sinus rhythm rate 96 bpm with first-degree AV block MN interval 222 Normal intervals Reversal prior T wave abnormalities in the 4 through V6 No acute ischemic changes Prior EKG tracings: available for review Prior: Changed (Reversal of T wave abnormalities and some of the precordial leads) Management Discussion w/another healthcare provider: Hospitalist and [employer] Discharge Plan Triage Chief Complaint: Shortness of Breath ED Provider: Madeleine Galindo Dx/Rx/DC Orders Clinical Impression: Acute dyspnea, Pleural effusion, Elevated troponin Prescriptions: No Action insulin glargine [Lantus Solostar U-100 Insulin] 100 unit/mL (3 mL) insulin pen 20 unit subcut QAM (DME) FreeStyle Lite Strips Strip See Rx Instructions .ROUTE .MEDSUPPLY Qty: 10 Patient Comments: USE STRIP TO CHECK GLUCOSE ONCE DAILY Rx Instructions: As directed (DME) pen needle, diabetic 31 gauge x 15/64 needle See Rx Instructions .ROUTE .MEDSUPPLY Qty: 50 Patient Comments: USE ONCE DAILY Rx Instructions: As directed glipizide 5 mg tablet 5 mg PO DAILY lisinopril 5 mg tablet 5 mg PO QDAY Qty: 90 3RF aspirin [Adult Aspirin Regimen] 81 mg tablet,delayed release (DR/EC) 81 mg PO QDAY nitroglycerin 0.4 mg tablet, sublingual 0.4 mg SUBLINGUAL Q5-15M PRN (Reason: CHEST PAIN) Qty: 25 1RF clopidogrel 75 mg tablet 75 mg PO QDAY Qty: 90 3RF isosorbide mononitrate 60 mg tablet extended release 24 hr 60 mg PO QDAY Qty: 90 3RF atorvastatin 40 mg tablet 40 mg PO QDAY Qty: 90 3RF metoprolol succinate 50 mg tablet extended release 24 hr 50 mg PO QDAY Qty: 90 3RF potassium chloride 8 mEq capsule, extended release 8 meq PO DAILY Qty: 90 3RF Primary Care Provider: Vipul Zamora Referrals: Vipul Zamora DO [Primary Care Provider] - Print Language: Pakistani Disposition Disposition: Acute Care Hospital [facility]
[2024-12-12 10:50] LABS: Absolute Lymphocyte Count 1.26 X10^3/uL (0.83-4.51); Absolute Neutrophil Count 6.8 X10^3/uL (2.0-7.7); Basophil# 0.03 X10^3/uL; Basophil% 0.3 % (0-1); Eosinophil# 0.09 X10^3/uL; Hematocrit 46.1 % (40-54); Hemoglobin 15.5 g/dL (13.0-16.5); Lymphocyte # 1.26 X10^3/ul (0.83-4.51); Lymphocyte % 14.3 % (19-41); Mean Corp Hgb Conc 33.6 g/dL (32-36); Mean Corpuscular Hgb 29.9 pg (27.0-32.0); Mean Platelet Vol. 9.7 fl (6.2-12.0); Monocyte# 0.62 X10^3/uL; Monocyte% 7.1 % (0-10); NRBC Flagged by Analyzer 0 % (0-5); Neutrophil # 6.77 X10^3/uL (2.7-7.7); Neutrophil % 77.1 % (47-70); Platelet Count 198 K/mm3 (150-450); RBC Distribution Width CV 13.5 % (11.6-14.6); RBC Distribution Width SD 43.8 fl (35.1-43.9); Red Blood Count 5.18 M/mm3 (4.6-6.2); White Blood Count 8.8 K/mm3 (4.4-11.0)
[2024-12-12 11:39] LABS: Anion Gap 11 (5-15); BUN 15 mg/dL (4-19); BUN/Creat Ratio 13.2 RATIO (10-20); Calcium,Total 8.2 mg/dL (7.6-11.0); Carbon Dioxide 19.6 mmol/L (21.0-32.0); Chloride 104 mmol/L (98-108); Creatinine, Serum 1.13 mg/dL (0.70-1.20); EST Glomerular Filtration Rate 63 (>60); Estimated Creatinine Clearance 53.66 ml/min (50-250); Glucose 224 mg/dL (70-99); Potassium 4.1 mmol/L (3.3-5.1); Pro- Brain NATRIURETIC PEPTIDE 2149 pg/mL (<=1800); Sodium Level 134 mmol/L (133-145); Troponin T High Sensitivity 252 ng/L (<=22)
--- NOTE | 2024-12-12 11:40 | ED.RN ---
Critical troponin of 252. Dr. Galindo notified
[2024-12-12 12:16] LABS: D-Dimer Quantitative (DVT/PE) 0.48 FEU/ug/m (0.27-0.49)
[2024-12-12 13:13] LABS: Troponin T High Sens 2 HR 244 ng/L (<=22)
--- NOTE | 2024-12-12 13:13 | ED.RN ---
Critical troponin of [address] Galindo notified.
--- NOTE | 2024-12-12 13:19 | CT_ITS ---
PROCEDURE: CTA CHEST W/WO CONTRAST, 12/12/2024 REASON FOR EXAM: SOB TECHNIQUE: CTA chest was performed with IV contrast. Multiplanar reformats and MIP reconstructions were generated. IV contrast: Isovue 370 VOLUME: 100mL RADIATION DOSE SUMMARY: CTDlvol: 9.50+ 14.88 mGy DLP: 533.30 mGycm One or more dose reduction techniques were used (e.g., Automated exposure control, adjustment of the mA and/or kV according to patient size, use of iterative reconstruction technique). COMPARISON: No prior CT or CTA chest FINDINGS: Moderate motion limitation greatest in the mid and lower lungs, limiting sensitivity for peripheral pulmonary embolism. Heart/pericardium: Three-vessel coronary atherosclerosis and/or stents. Mild mitral annular calcification.. Overall heart size is top-normal with relative dilatation of the LEFT atrium. Aorta: Moderate to advanced atherosclerosis. Pulmonary arteries: Normal in caliber. No central or definite pulmonary embolism is identified. Lymph nodes: Subcarinal node, 12 mm short axis.. Lungs/pleura: Small/moderate bilateral pleural effusions with adjacent likely compressive atelectasis. Sensitivity for small limited by motion artifact. Airways: Grossly unremarkable noting expiratory appearance of the trachea. Chest wall: Mild gynecomastia.. Upper abdomen: Small hiatal hernia.. Advanced aortic atherosclerosis. Musculoskeletal: Multilevel spondylosis.. CT/CTA Chest W/WO Contrast IMPRESSION: 1. Somewhat motion limited exam. No central or definite pulmonary embolism iden tified allowing for limitations. 2. Small/moderate bilateral pleural effusions. Overall heart size is top-bossman l with relative dilatation of the LEFT atrium. 3. Mild mediastinal lymphadenopathy, nonspecific and potentially reactive in th e absence of known malignancy. Correlate with medical history and follow-up as indicated. 4. Additional description as above. Reading Location: [id number]
[2024-12-12 15:36] LABS: Troponin T High Sens 4 HR 275 ng/L (<=22)
[2024-12-12] MEDS: Aspirin 81 MG TAB.CHEW 162 MG PO (15:48)
--- NOTE | 2024-12-12 15:50 | PCM.HP.STD ---
[facility] - General General Date of Admission: 12/12/24 Date of Service: 12/12/24 Chief Complaint: Shortness of breath HPI Narrative ROBER CHAVEZ, is a 89-year-old male history of coronary artery disease with stent 11/24/2023, diabetes, hypertension who presented [facility] ED 12/12/2024 due to shortness of breath. He reportedly became suddenly short of breath this morning and ultimately called family due to his labored breathing, they called EMS, patient was placed on oxygen got a breathing treatment and then did start feeling better. He came to the ED and in the ED temperature 99.4, heart rate 104 with blood pressure of 166/116, respiratory rate of 18 and patient 98% on room air. CBC unremarkable, BMP primarily significant for a glucose of 224. Chest x-ray with mild cardiomegaly, small left and trace right pleural effusion with adjacent mild bibasilar airspace disease possibly reflective of atelectasis versus pneumonia. Patient was noted to have a proBNP of 2149 and a troponin of 252 which down trended to 244 so ultimately CTA obtained which redemonstrated small to moderate bilateral pleural effusions with likely compressive atelectasis with no PE and some mild mediastinal lymphadenopathy. Due to his elevated troponins and presenting complaints cardiology contacted, it was felt this was likely not a primary cardiac event at this time and it was recommended to explore other etiologies and if workup otherwise unrevealing that may be reasonable to consult cardiology. Hospitalist contacted for admission and patient evaluated with family members at bedside. Patient very hard of hearing as his hearing aids just , initially deferred all history to his family members at bedside but was able to provide a little bit of additional history. Reportedly patient does not sleep well at night and is up and down most of the night and typically sleeps in a recliner. He reports he got up at 4 AM to go to the bathroom and as soon as he got up and started moving he noticed he was short of breath. This continued to worsen especially on exertion prompting him to call family as above. He is feeling better and now in the ED while sitting still but family reports that when he stood up to use the urinal his oxygen still dropped. Patient does report he drinks a significant amount of water to try to prevent dehydration. Has had some dry cough today with no sputum production. Does not feel he is more swollen than usual per patient though does have some pitting edema in lower extremities. Denies any chest pain, no fevers, no nausea. Family notes his only other complaint had been on Tuesday he complained of some left ear and jaw pain but patient reports it was somewhat tender to the touch at that time and he has had some intermittent problems with his teeth the symptoms have completely resolved. [facility] Medical History Hypokalemia Wears hearing aid Wears dentures Cancer Insulin dependent diabetes mellitus Arthritis High cholesterol Back pain Dietary restriction Hx of carcinoma in situ of rectum Non-smoker History of echocardiogram History of stress test Cardiology follow-up encounter Umbilical hernia, incarcerated Screening for AAA (abdominal aortic aneurysm) Essential hypertension Stenosis of right carotid artery Nonrheumatic mitral (valve) prolapse Hyperlipidemia Presence of stent in coronary artery (~11/24/23) Atherosclerotic heart disease of [place] coronary artery without angina pectoris History of GI bleed Rectal cancer Home Medications ?Medication ?Instructions ?Recorded ?Last Taken ?Type blood sugar diagnostic (FreeStyle #10 ea 05/04/22 Unknown History Lite Strips) pen needle, diabetic 31 gauge x #50 ea 05/04/22 Unknown History glipizide 5 mg tablet 5 mg PO DAILY 11/24/22 11/21/23 History nitroglycerin 0.4 mg sublingual 0.4 mg sublingual Q5-15M PRN CHEST 02/10/23 Unknown Rx tablet PAIN #25 tabs clopidogrel 75 mg tablet 75 mg PO QDAY BLOOD THINNER #90 12/19/23 Unknown Rx tabs isosorbide mononitrate 60 mg 60 mg PO QDAY BP #90 tabs 01/04/24 Unknown Rx tablet,extended release 24 hr atorvastatin 40 mg tablet 40 mg PO QDAY CHOLESTEROL #90 tabs 02/13/24 Unknown Rx metoprolol succinate 50 mg 50 mg PO QDAY BP #90 tabs 02/22/24 Unknown Rx tablet,extended release 24 hr potassium chloride 8 mEq 8 meq PO DAILY #90 caps 02/22/24 Unknown Rx capsule,extended release aspirin 81 mg tablet,delayed 81 mg PO QDAY 10/16/24 Unknown History release (Adult Aspirin Regimen) insulin glargine 100 unit/mL (3 20 unit subcut QAM 10/16/24 Unknown History mL) subcutaneous pen (Lantus Solostar U-100 Insulin) lisinopril 5 mg tablet 5 mg PO QDAY #90 tabs 10/16/24 Unknown Rx Allergy/AdvReac Type Severity Reaction Status Date / Time No Known Allergies Allergy Verified 12/12/24 09:49 Family History Father CAD (coronary artery disease) Diabetes Sister Diabetes Hypertension Grandmother CAD (coronary artery disease) Grandfather CAD (coronary artery disease) Surgical History Hx of colonoscopy History of basal cell carcinoma excision Presence of coronary angioplasty implant and graft (~07/22/03) History of right-sided carotid endarterectomy (~03/13/18) Social History household members: [facility] Smoking Status: Never smoker alcohol intake: never substance use type: does not use ROS ROS Narrative General: Denies fever/chills Resp: Dry cough no sputum production, shortness of breath and labored breathing primarily on exertion Cardiac: Denies chest pain GI: Denies abdominal pain, denies nausea/vomiting Extremity: Denies lower extremity edema though he does have 1+ pitting lower extremity edema Difficult eliciting further ROS given patient's significant difficulty in hearing and having to defer to family members for large parts of the history Vital Signs Vital Signs Vital Signs: 12/12/24 09:49 12/12/24 09:52 12/12/24 10:35 Temperature 98.0 F 98 F Temperature Source Oral Oral Pulse Rate 104 H 104 H 97 Respiratory Rate 18 18 28 H Blood Pressure 166/116 H 166/116 H 163/65 H Blood Pressure Mean 132 132 97 Pulse Ox 98 98 95 Oxygen Delivery Method Room Air Room Air Nasal Cannula Oxygen Flow Rate (L/min) 2 12/12/24 10:57 12/12/24 12:07 12/12/24 14:12 Temperature 99.4 F H 99.4 F H Temperature Source Oral Oral Pulse Rate 92 87 90 Respiratory Rate 24 H 16 18 Blood Pressure 143/81 H 132/61 H 163/90 H Blood Pressure Mean 101 84 114 Pulse Ox 95 94 96 Oxygen Delivery Method Room Air Room Air Room Air Oxygen Flow Rate (L/min) 12/12/24 14:45 Temperature 98.9 F Temperature Source Oral Pulse Rate 87 Respiratory Rate 12 Blood Pressure 142/62 H Blood Pressure Mean 88 Pulse Ox 95 Oxygen Delivery Method Room Air Oxygen Flow Rate (L/min) Weight Weight: 100.4 kg Body Mass Index (BMI) 31.7 Physical Exam Narrative General: Alert, no apparent distress HEENT: Atraumatic, normocephalic Eyes: Anicteric, normal conjunctiva, extraocular movements grossly intact Neck: Supple Respiratory: At present normal respiratory effort, is diminished bilaterally at the bases Cardiovascular: Regular rate and rhythm GI: Soft, nontender, nondistended Extremities: 1+ bilateral lower extremity pitting edema Musculoskeletal: Moving all extremities Neuro: No overt focal neurological deficits Skin: Has area on upper chest that is raised and purple with normal spiderlike nevi Psych: Cooperative Results Lab / Micro Data 12/12/24 10:30 12/12/24 10:30 Labs: Laboratory Results - last 24 hr 12/12/24 10:30: WBC 8.8, RBC 5.18, Hgb 15.5, Hct 46.1, MCV 89.0, MCH 29.9, MCHC 33.6, RDW Std Deviation 43.8, RDW Coeff of Christiano 13.5, Plt Count 198, MPV 9.7, Immature Gran % (Auto) 0.200, Neut % (Auto) 77.1 H, Lymph % (Auto) 14.3 L, [place] % (Auto) 7.1, Eos % (Auto) 1.0, Baso % (Auto) 0.3, Absolute Neuts (auto) 6.8, Absolute Lymphs (auto) 1.26, Nucleated RBC % 0, D-Dimer Quant (PE/DVT) 0.48, Sodium 134, Potassium 4.1, Chloride 104, Carbon Dioxide 19.6 L, Anion Gap 11, BUN 15, Creatinine 1.13, Estim Creat Clear Calc 53.66, Est GFR (MDRD) Non-Af 63, BUN/Creatinine Ratio 13.2, Glucose 224 H, Calcium 8.2, Troponin T High Sens 252 H*, NT pro BNP II 2149 H 12/12/24 12:28: Troponin T Hi Sens 2 Hr 244 H* 12/12/24 14:50: Troponin T Hi Sens 4Hr 275 H* Rhythm Strip Rhythm Strip: Sinus Rhythm Rate: 96 Ectopy: None Imaging Radiology Impression Chest X-Ray 12/12/24 10:35 IMPRESSION: 1. Mild cardiomegaly with small LEFT and suspected trace RIGHT pleural effusions. 2. Adjacent mild bibasilar airspace disease may reflect compressive atelectasis versus pneumonia. Attention on below recommended outpatient imaging to ensure resolution. 3. Mild hilar prominence could reflect pulmonary arterial enlargement however recommend outpatient CT chest with contrast as hilar lymphadenopathy may appear similarly, unless outside imaging is available to establish long-term stability or further delineate. 4. Additional description as above. Reading Location: [id number] Chest CTA 12/12/24 13:19 IMPRESSION: 1. Somewhat motion limited exam. No central or definite pulmonary embolism identified allowing for limitations. 2. Small/moderate bilateral pleural effusions. Overall heart size is top-normal with relative dilatation of the LEFT atrium. 3. Mild mediastinal lymphadenopathy, nonspecific and potentially reactive in the absence of known malignancy. Correlate with medical history and follow-up as indicated. 4. Additional description as above. Reading Location: [id number] Assessment & Plan Assessment/Plan (1) Acute dyspnea: PLAN: Plan # Shortness of breath suspect secondary to fluid overload and pleural effusions - Patient reports that at 4 AM he got up and as he was walking to the bathroom he noticed the sudden shortness of breath, he also has had dry cough today - Denies any chest pain - Unclear what to make of reports that he improved significantly with 1 breathing treatment especially given no history of COPD, asthma, other lung pathology however it was also noted that he was put on oxygen at the same time, unclear if this may have helped, not presently wheezing - He has had no fever, no production in his cough or other infectious symptoms but given confusing clinical picture will check respiratory viral panels -Given effusions, elevated proBNP, worsened shortness of breath on exertion suspect this may more likely be fluid overload -Admit to telemetry -proBNP 2148 -CXR patient with bilateral pleural effusions, CTA also demonstrated small to moderate bilateral pleural effusions with no PE - Start patient on IV Lasix -Last echo 11/22/2023 with EF of 60% and stage I diastolic dysfunction -Repeat echo ordered -Daily weights, I's and O's -Fluid restriction, heart healthy diet # Elevated troponin Initial troponin 252 down trended to 244 and repeat was 275 -No CP -EKG Sinus rhythm w/ 1st degree block - Cardiology contacted in the ED, does not seem to be primary coronary event is felt this is more likely demand from underlying illness, monitoring on telemetry, low threshold for cardiology consult, repeating echo as above, continue beta-luan, Plavix, aspirin, statin #Hx of CAD -w/ previous stenting in 2023 -Continue home medications # Mild mediastinal lymphadenopathy - May need further outpatient follow-up given thus far lack of infectious etiology identified #Type 2 diabetes mellitus -Glucose checks and sliding scale insulin - Continue patient's glargine long-acting at slightly lower dose to avoid hypoglycemia, uptitrate as tolerated, did not take dose this a.m. so will be given now #Hypertension - Continue medications, patient remains hypertensive may need further adjustments DVT ppx: lovenox subq Charges/Coding Visit Charges Inpatient E&M: 53653 Init Hosp L2
--- NOTE | 2024-12-12 16:52 | ECHOCS_ITS ---
Reason For Study Reason For Study: DYSPNEA Procedure This was a 2D Doppler, Color Flow transthoracic echocardiogram. The study was technically difficult. Contrast injection was performed. Exam performed portable in patient room. Left Ventricle Moderate concentric left ventricular hypertrophy. The LV systolic function is normal. EF is 65 %. Stage 1 diastolic dysfunction. Right Ventricle Normal right ventricle. Atria The left atrium is mildly enlarged. Normal right atrium. Mitral Valve Mild-Moderate (1-2+) mitral valve insufficiency. Tricuspid Valve Trivial tricuspid valve insufficiency. Right ventricular systolic pressure estimated to be 39 mmHg. Aortic Valve Moderately calcified aortic valve with restricted leaflet motion. Aortic valve area 1.9 cm?? by planimetry. Mean peak gradient 6 mmHg. Mild aortic valve regurgitation. Pulmonic Valve The pulmonic valve is not well visualized. Great Vessels Normal sized aortic root. Pericardium/Pleural No pericardial effusion. Medication Diluted definity 1.5ml given slow IV push to enhance endocardial definition. MMode/2D Measurements & Calculations LVIDd: 5.4 cm IVSd: 1.8 cm LVOT diam: 2.0 cm LVIDs: 4.0 cm LVPWd: 1.1 cm FS: 26.7 % LVOT area: 3.2 cm2 Ao root diam: 3.6 cm LAV(MOD-bp): 43.5 ml LVAd ap4: 37.4 cm2 LAV(MOD-bp) Indexed: 20.3 ml/m2 LVLd ap4: 8.7 cm LAV(MOD-sp2): 48.2 ml EDV(MOD-sp4): 131.7 ml LAV(MOD-sp4): 29.0 ml EDV(sp4-el): 136.6 ml LVAs ap4: 20.1 cm2 LVLs ap4: 7.4 cm ESV(MOD-sp4): 49.8 ml ESV(sp4-el): 46.6 ml EF(MOD-sp4): 62.2 % EF(sp4-el): 65.9 % SV(MOD-sp4): 82.0 ml SV(sp4-el): 90.1 ml Aortic Valve Planimetry: 1.9 cm2 SI(MOD-sp4): 38.2 ml/m2 LA A4 area: 11.5 cm2 LA dimension(2D): 4.1 cm RA A4 area: 8.0 cm2 Time Measurements MV dec time: 0.19 sec Doppler Measurements & Calculations MV E max antoni: 76.1 cm/sec Lat Peak E' Antoni: 11.9 cm/sec Med Peak E' Antoni: 4.9 cm/sec MV A max antoni: 62.7 cm/sec E/E' lat: 6.4 E/E' med: 15.4 MV E/A: 1.2 MV V2 max: 91.5 cm/sec MV dec slope: 406.3 cm/sec2 Ao V2 max: 165.2 cm/sec MV max P.3 mmHg Ao max P.9 mmHg MV V2 mean: 64.9 cm/sec Ao V2 mean: 113.4 cm/sec MV mean P.8 mmHg Ao mean P.9 mmHg MV V2 VTI: 30.2 cm Ao V2 VTI: 34.0 cm MVA(VTI): 3.0 cm2 AV (velocity ratio): 0.84 SAGRARIO(I,D): 2.7 cm2 SAGRARIO(V,D): 2.6 cm2 LV V1 max: 136.4 cm/sec SV(LVOT): 90.7 ml PA V2 max: 81.6 cm/sec LV V1 max P.4 mmHg PA V2 mean: 60.9 cm/sec LV V1 mean P.3 mmHg LV V1 mean: 98.2 cm/sec LV V1 VTI: 28.5 cm TR max antoni: 291.4 cm/sec TR max P.0 mmHg ECHO/Echo Complete W/ Contrast Interpretation Summary Moderate concentric left ventricular hypertrophy. The LV systolic function is normal. EF is 65 %. Stage 1 diastolic dysfunction. The left atrium is mildly enlarged. Mild-Moderate (1-2+) mitral valve insufficiency. Right ventricular systolic pressure estimated to be 39 mmHg. Moderately calcified aortic valve with restricted leaflet motion. Aortic valve area 1.9 cm?? by planimetry. Mean peak gradient 6 mmHg. Mild aortic valve regurgitation. Ordering Physician: Cinda De Dios Referring Physician: KRISTY YE Performed By: Carli Kaplan RCS
[2024-12-12] MEDS: Furosemide 40 MG/4 ML Vial IV (17:58)
[2024-12-12] MEDS: 0.9% Saline Lock 10 ML Syringe IV (17:58)
[2024-12-12] MEDS: Insulin Glargine-YFGN 100 UNIT/ML Pen 15 UNIT SC (17:58)
[2024-12-12 18:26] LABS: Bedside Glucose 173 mg/dL (74-106)
[2024-12-12 19:27] LABS: Troponin T High Sensitivity 312 ng/L (<=22)
--- NOTE | 2024-12-12 19:57 | PCM.HOSP.N ---
Hospitalist Note Patient's troponin initially down trended but went back up with a fourth troponin of 312, contacted cardiology given patient's reported history to me and that given the available data with his story it now seems that this may be more cardiac in nature as it does not seem he has an acute pulmonary infection, given this information he was requested repeat EKG, a dose of full dose Lovenox x 1 and a consult and he will be seen in the a.m. These orders have been entered and this has been communicated with charge nurse as well
[2024-12-12] MEDS: Enoxaparin 100 MG/ML Syringe 90 MG SC (20:18)
[2024-12-12] MEDS: Atorvastatin Calcium 40 MG Tablet PO (20:31)
[2024-12-12] MEDS: Insulin Lispro 100 UNIT/ML INSULN.PEN SC (20:32)
[2024-12-12 20:45] LABS: Bedside Glucose 318 mg/dL (74-106)
[2024-12-12 21:24] LABS: Troponin T High Sensitivity 308 ng/L (<=22)
[2024-12-13 02:30] VITALS: BP 141/62; PULSE 66; RESP 16; TEMP 36.6; O2SAT 97
[2024-12-13 06:00] VITALS: BMI 30.5
[2024-12-13 06:18] LABS: Bedside Glucose 114 mg/dL (74-106)
[2024-12-13 07:06] LABS: Absolute Lymphocyte Count 1.82 X10^3/uL (0.83-4.51); Absolute Neutrophil Count 3.2 X10^3/uL (2.0-7.7); Basophil# 0.04 X10^3/uL; Basophil% 0.7 % (0-1); Eosinophil# 0.13 X10^3/uL; Eosinophils% 2.2 % (0-5); Hematocrit 43.8 % (40-54); Hemoglobin 15.3 g/dL (13.0-16.5); Lymphocyte # 1.82 X10^3/ul (0.83-4.51); Lymphocyte % 30.2 % (19-41); Mean Corp Hgb Conc 34.9 g/dL (32-36); Mean Corpuscular Hgb 30.1 pg (27.0-32.0); Mean Corpuscular Volume 86.1 fL (80-94); Mean Platelet Vol. 9.8 fl (6.2-12.0); Monocyte# 0.79 X10^3/uL; Monocyte% 13.1 % (0-10); NRBC Flagged by Analyzer 0 % (0-5); Neutrophil # 3.23 X10^3/uL (2.7-7.7); Neutrophil % 53.6 % (47-70); Platelet Count 212 K/mm3 (150-450); RBC Distribution Width CV 13.5 % (11.6-14.6); RBC Distribution Width SD 42.1 fl (35.1-43.9); Red Blood Count 5.09 M/mm3 (4.6-6.2)
[2024-12-13 07:38] VITALS: O2SAT 95
[2024-12-13 07:53] LABS: AST(SGOT) 23 U/L (<=37); Alanine Aminotransfer ALT/SGPT 16 U/L (<=46); Albumin, Serum 3.3 g/dL (3.4-4.8); Alkaline Phosphatase 105 U/L (40-129); Anion Gap 12 (5-15); BUN 12 mg/dL (4-19); BUN/Creat Ratio 11.4 RATIO (10-20); Bilirubin, Direct 0.38 mg/dL (0.00-0.30); Calcium,Total 8.4 mg/dL (7.6-11.0); Carbon Dioxide 21.3 mmol/L (21.0-32.0); Chloride 104 mmol/L (98-108); Cholesterol 96 mg/dL (<=200); Creatinine, Serum 1.06 mg/dL (0.70-1.20); EST Glomerular Filtration Rate 68 (>60); Estimated Creatinine Clearance 56.22 ml/min (50-250); Globulin 2.3 g/dL (2.2-4.2); Glucose 103 mg/dL (70-99); High Density Lipoprotein 25 mg/dL; Low Density Lipoprotein Calc. 55 mg/dL; Potassium 3.4 mmol/L (3.3-5.1); Protein, Total 5.6 g/dL (5.9-8.4); Sodium Level 138 mmol/L (133-145); Triglycerides 78 mg/dL; Very Low Density Lipoprotein 16 mg/dL (5-40); cholesterol:hdl ratio screen 3.81
--- NOTE | 2024-12-13 08:06 | PN.HOSP_ITS ---
Reason for Visit Reason for Visit: Diagnoses Dyspnea, unspecified (12/12/24) Subjective Subjective Feels well. No new complaints. Objective Data Objective Data Vital Signs: Vital Signs Temp Pulse Resp BP Pulse Ox O2 Del Method O2 Flow Rate 36.6 C 66 16 141/62 H 97 Room Air 2 12/13/24 02:30 12/13/24 02:30 12/13/24 02:30 12/13/24 02:30 12/13/24 02:30 12/13/24 04:29 12/12/24 10:35 Oxygen Flow Rate (L/min) 2 Oxygen Delivery Method Room Air Weight: 96.8 kg Body Mass Index (BMI) 30.5 Intake & Output: Intake and Output for Last 24 Hours 12/11/24 12/12/24 12/13/24 23:59 23:59 23:59 Intake Total 0 / 0 Output Total 1750 / 1750 1050 / 1050 Balance -1750 / -1750 -1050 / -1050 Lab / Micro Data 12/13/24 06:43 12/13/24 06:43 Labs: Laboratory Results - last 24 hr 12/12/24 10:30: WBC 8.8, RBC 5.18, Hgb 15.5, Hct 46.1, MCV 89.0, MCH 29.9, MCHC 33.6, RDW Std Deviation 43.8, RDW Coeff of Christiano 13.5, Plt Count 198, MPV 9.7, Immature Gran % (Auto) 0.200, Neut % (Auto) 77.1 H, Lymph % (Auto) 14.3 L, [place] % (Auto) 7.1, Eos % (Auto) 1.0, Baso % (Auto) 0.3, Absolute Neuts (auto) 6.8, Absolute Lymphs (auto) 1.26, Nucleated RBC % 0, D-Dimer Quant (PE/DVT) 0.48, Sodium 134, Potassium 4.1, Chloride 104, Carbon Dioxide 19.6 L, Anion Gap 11, BUN 15, Creatinine 1.13, Estim Creat Clear Calc 53.66, Est GFR (MDRD) Non-Af 63, BUN/Creatinine Ratio 13.2, Glucose 224 H, Calcium 8.2, Troponin T High Sens 252 H*, NT pro BNP II 2149 H 12/12/24 12:28: Troponin T Hi Sens 2 Hr 244 H* 12/12/24 14:50: Troponin T Hi Sens 4Hr 275 H* 12/12/24 17:54: POC Glucose 173 H 12/12/24 18:43: Troponin T High Sens 312 H* D 12/12/24 20:26: POC Glucose 318 H 12/12/24 20:49: Troponin T High Sens 308 H* 12/13/24 05:59: POC Glucose 114 H 12/13/24 06:43: WBC 6.0, RBC 5.09, Hgb 15.3, Hct 43.8, MCV 86.1, MCH 30.1, MCHC 34.9, RDW Std Deviation 42.1, RDW Coeff of Christiano 13.5, Plt Count 212, MPV 9.8, Immature Gran % (Auto) 0.200, Neut % (Auto) 53.6, Lymph % (Auto) 30.2, [place] % (Auto) 13.1 H, Eos % (Auto) 2.2, Baso % (Auto) 0.7, Absolute Neuts (auto) 3.2, Absolute Lymphs (auto) 1.82, Nucleated RBC % 0, Sodium 138, Potassium 3.4, Chloride 104, Carbon Dioxide 21.3, Anion Gap 12, BUN 12, Creatinine 1.06, Estim Creat Clear Calc 56.22, Est GFR (MDRD) Non-Af 68, BUN/Creatinine Ratio 11.4, G lucose 103 H, Calcium 8.4, Total Bilirubin 0.80, Direct Bilirubin 0.38 H, AST 23, ALT 16, Alkaline Phosphatase 105, Total Protein 5.6 L, Albumin 3.3 L, Globulin 2.3, Triglycerides 78, Cholesterol 96, LDL Cholesterol, Calc 55, VLDL Cholesterol 16, HDL Cholesterol 25 L, Cholesterol/HDL Ratio 3.81, TSH 1.980 Micro: Microbiology 12/12/24 17:15 Mucosa - Nasopharyngeal Respiratory Panel (PCR) - Final 12/12/24 17:15 Mucosa - Nasopharyngeal SARS-CoV-2, Influenza & RSV (PCR) - Final Radiography Diagnostic Testing: Radiology Impression Chest X-Ray 12/12/24 10:35 IMPRESSION: 1. Mild cardiomegaly with small LEFT and suspected trace RIGHT pleural effusions. 2. Adjacent mild bibasilar airspace disease may reflect compressive atelectasis versus pneumonia. Attention on below recommended outpatient imaging to ensure resolution. 3. Mild hilar prominence could reflect pulmonary arterial enlargement however recommend outpatient CT chest with contrast as hilar lymphadenopathy may appear similarly, unless outside imaging is available to establish long-term stability or further delineate. 4. Additional description as above. Reading Location: [facility] Chest CTA 12/12/24 13:19 IMPRESSION: 1. Somewhat motion limited exam. No central or definite pulmonary embolism identified allowing for limitations. 2. Small/moderate bilateral pleural effusions. Overall heart size is top-normal with relative dilatation of the LEFT atrium. 3. Mild mediastinal lymphadenopathy, nonspecific and potentially reactive in the absence of known malignancy. Correlate with medical history and follow-up as indicated. 4. Additional description as above. Reading Location: [facility] Rhythm Strip Rhythm Strip: Sinus Rhythm Rate: 96 Ectopy: None Physical Exam HEENT head/scalp atraumatic and moist oral mucous membranes Resp normal respiratory effort, no retractions and no use of accessory muscles Cardio regular rate, regular rhythm, S1 normal heart sound and S2 normal heart sound GI normal to inspection, nondistended, normoactive bowel sounds, soft to palpation, non-tender and non-distended Extremity normal to inspection Neuro Sensorium / Orientation: awake and alert Assessment & Plan Assessment/Plan (1) (HFpEF) heart failure with preserved ejection fraction: PLAN: acute pulmonary vascular congestion and pleural effusions. IV furosemide echo shows an EF 65%. Stage 1 DD. Mildly enlarged LA. RVSP 38mmHG. on metoprolol succinate, lisinopril Will discharge with furosemide 40/d. Fluid restrict. (2) NSTEMI, initial episode of care: PLAN: Secondary to demand ischemia Cards consult. on ASA, clopidogrel, isosorbide, received a 1x dose of 90mg of enoxaparin prior history of CAD and PCI. DW Dr. Falk, stress limited due to GI activity. Chronic changes. No additional work up. PLAN: Plan Chronic conditions: * DM2: Glargine and SSI. change a1c * HTN: stable. VTE prophylaxis: enoxaparin
[2024-12-13 08:30] VITALS: BP 161/97; PULSE 84; RESP 16; TEMP 36.6; O2SAT 99
--- NOTE | 2024-12-13 08:41 | PCM.CONS.C ---
Assessment & Plan Assessment/Plan (1) Elevated troponin: PLAN: Patient's troponin have been minimally elevated initial troponin 244, 275, 312, 308. ECG does not show any acute ischemic changes. The patient presented with dyspnea which were relatively sudden onset he does not carry history of heart failure preserved ejection fraction but given his age and known previous echo with normal LV function would suspect the possibility of heart failure with preserved ejection fraction. There is also question of a possible pneumonic infiltrative process on CT scan with small bilateral pleural effusions. The patient will be further evaluated pharmacologic nuclear stress testing and an echocardiogram to reevaluate the LV function. Further recommendations pending the outcome of these testing. (2) Acute dyspnea: PLAN: Patient had no prior history that I could elicit from an acute presentation with dyspnea like this. His prior cardiac event was precipitated by near syncope. He has had no recurrence of that since stenting of his right coronary artery. Does not remember what symptoms he had prior to stenting of the circumflex remotely. (3) Hypertension: QUALIFIERS: Hypertension type: primary hypertension Qualified Code(s): I10 - Essential (primary) hypertension PLAN: Patient's blood pressure has been adequately controlled in the home environment on his lisinopril and metoprolol. Will continue to monitor this during his hospitalization. (4) Coronary artery disease: QUALIFIERS: Coronary Disease-Associated Artery/Lesion type: [place] artery [place] vs. transplanted heart: [place] heart Associated angina: without angina Qualified Code(s): I25.10 - Atherosclerotic heart disease of [place] coronary artery without angina pectoris PLAN: Patient has remote history of stenting of the circumflex. In November 2023 his most recent stenting was the ostium of the right coronary which was a calcified lesion. That presentation was prompted by near syncope which he has had no recurrence. Patient's LV function historically was known to be in the normal range, 60% on echocardiogram November 2023. Given the patient's troponins we will obtain a pharmacologic nuclear stress test to rule out significant ischemic burden. On his cath in November 2023 he had minimal disease in the left main trunk LAD circumflex or mid to distal right coronary artery areas. (5) Hyperlipidemia: QUALIFIERS: Hyperlipidemia type: unspecified Qualified Code(s): E78.5 - Hyperlipidemia, unspecified PLAN: Patient's lipids on admission showed triglycerides of 78, total cholesterol 96, LDL 55, and HDL 25. This is on atorvastatin 40 mg daily. His LFTs were within normal limits. PLAN: Plan 1. Obtain 2D echocardiogram to evaluate LV function. 2. Proceed with pharmacologic nuclear stress test. 3. Continue with secondary risk factor modifications as outlined above. 4. Further recommendations once the results of the echo and pharmacologic stress test are available. HPI Consult Data Date of Consult: 12/13/24 HPI Narrative Reason for Consultation: Shortness of breath HPI Narrative: ROBER CHAVEZ, is a 89 M who presents with a relative sudden onset of shortness of breath yesterday. He presented the emergency room was placed on oxygen transiently and his shortness of breath resolved. Patient carries a history of coronary artery disease status post remote stenting of the circumflex and had stenting of the ostial right coronary artery done in 2023. That presentation was for near syncope. He has never had chest pain and is never had shortness of breath with his cardiac events in the past. The patient's distal vessels in the LAD circumflex as well as his left main trunk and distal right coronary all appeared widely patent. There was a good result with the stenting of the ostium of the right coronary artery back in 2023. Patient reports this morning that he is feeling well he is resting comfortably on room air. The patient denies any chest pain syncope or near syncope. An echocardiogram is pending at this point in time to evaluate his LV function. Patient's enzymes initially were 244, 275, 312, 308. Telemetry shows normal sinus rhythm at 60 bpm no significant ectopy. Patient's renal function is normal. He did receive IV diuretics last evening with good diuresis. The patient does have past medical history of right carotid endarterectomy and rectal carcinoma. [facility] Medical History Hypokalemia Wears hearing aid Wears dentures Cancer Insulin dependent diabetes mellitus Arthritis High cholesterol Back pain Dietary restriction Hx of carcinoma in situ of rectum Non-smoker History of echocardiogram History of stress test Cardiology follow-up encounter Umbilical hernia, incarcerated Screening for AAA (abdominal aortic aneurysm) Essential hypertension Stenosis of right carotid artery Nonrheumatic mitral (valve) prolapse Hyperlipidemia Presence of stent in coronary artery (~11/24/23) Atherosclerotic heart disease of [place] coronary artery without angina pectoris History of GI bleed Rectal cancer Home Medications ?Medication ?Instructions ?Recorded ?Last Taken ?Type blood sugar diagnostic (FreeStyle #10 ea 05/04/22 Unknown History Lite Strips) pen needle, diabetic 31 gauge x #50 ea 05/04/22 Unknown History glipizide 5 mg tablet 5 mg PO DAILY cholesterol 11/24/22 12/12/24 History nitroglycerin 0.4 mg sublingual 0.4 mg sublingual Q5-15M PRN CHEST 02/10/23 Unknown Rx tablet PAIN #25 tabs clopidogrel 75 mg tablet 75 mg PO QDAY BLOOD THINNER #90 12/19/23 12/12/24 Rx tabs isosorbide mononitrate 60 mg 60 mg PO QDAY BP #90 tabs 01/04/24 12/12/24 Rx tablet,extended release 24 hr atorvastatin 40 mg tablet 40 mg PO QDAY CHOLESTEROL #90 tabs 02/13/24 12/12/24 Rx metoprolol succinate 50 mg 50 mg PO QDAY BP #90 tabs 02/22/24 12/12/24 Rx tablet,extended release 24 hr potassium chloride 8 mEq 8 meq PO DAILY #90 caps 02/22/24 12/12/24 Rx capsule,extended release aspirin 81 mg tablet,delayed 81 mg PO QDAY anticoagulant 10/16/24 12/12/24 History release (Adult Aspirin Regimen) insulin glargine 100 unit/mL (3 20 unit subcut QAM Dibetis 10/16/24 12/11/24 History mL) subcutaneous pen (Lantus Solostar U-100 Insulin) lisinopril 5 mg tablet 5 mg PO QDAY #90 tabs 10/16/24 12/12/24 Rx Allergy/AdvReac Type Severity Reaction Status Date / Time No Known Allergies Allergy Verified 12/12/24 09:49 Family History Father CAD (coronary artery disease) Diabetes Sister Diabetes Hypertension Grandmother CAD (coronary artery disease) Grandfather CAD (coronary artery disease) Surgical History Hx of colonoscopy History of basal cell carcinoma excision Presence of coronary angioplasty implant and graft (~07/22/03) History of right-sided carotid endarterectomy (~03/13/18) Social History household members: none housing: condominium Smoking Status: Never smoker alcohol intake: never substance use type: does not use ROS Constitutional Constitutional: Reports as per HPI Eyes Eyes: Reports systems reviewed and no addt'l complaints, except as documented ENT HEENT: Reports systems reviewed and no addt'l complaints, except as documented Cardiovascular Cardiovascular: Reports as per HPI Respiratory/Chest Respiratory/Chest: Reports as per HPI Gastrointestinal Gastrointestinal: Reports as per HPI Genitourinary Genitourinary: Reports as per HPI Musculoskeletal Musculoskeletal: Reports systems reviewed and no addt'l complaints, except as documented Integumentary Integumentary: Reports systems reviewed and no addt'l complaints, except as documented Neurologic Neurologic: Reports as per HPI Psychiatric Psychiatric: Reports systems reviewed and no addt'l complaints, except as documented Endocrine Endocrinology: Reports systems reviewed and no addt'l complaints, except as documented Hematologic/Lymphatic Hematologic/Lymphatic: Reports systems reviewed and no addt'l complaints, except as documented Allergic/Immunologic Allergic/Immunologic: Reports systems reviewed and no addt'l complaints, except as documented Physical Exam Narrative Patient resting comfortably in overcome position in bed undergoing bedside echocardiogram. Const alert and oriented x3 HEENT normocephalic Eyes EOMs intact bilaterally Neck no JVD and no carotid bruits Neck Narrative: Status post right carotid endarterectomy no bruit auscultated. Chest inspection of chest normal Resp normal respiratory effort Auscultation: diminished lung sounds left lower Cardio Rate: regular rate Rhythm: regular rhythm Heart Sounds: S1 normal and S2 normal; Negative for click, gallop or murmur GI soft to palpation and no bruits Extremity no pedal edema Neuro Neuro Narrative: Hearing deficit. Risk Stratification Risk Stratification Applicable: Yes Age >/= 65: Yes >/= 3 CAD Risk Factors (HTN, HLD, DM, family hx of CAD, or current smoker): Yes Aspirin Use in the Past 7 Days: Yes Severe Angina (>/= episodes in 24 hours): No EKG ST Changes >/= 0.5mm: No Positive Cardiac Marker: Yes JOYCELYN Risk Stratification Score: 4 JOYCELYN % Risk: 20% Risk Charges/Coding Visit Charges Inpatient E&M: 49274 Init Hosp L3 Objective Data Vital Signs: Vital Signs Temp Pulse Resp BP Pulse Ox O2 Del Method O2 Flow Rate 98 F 66 16 141/62 H 97 Room Air 2 12/13/24 02:30 12/13/24 02:30 12/13/24 02:30 12/13/24 02:30 12/13/24 02:30 12/13/24 04:29 12/12/24 10:35 Oxygen Flow Rate (L/min) 2 Oxygen Delivery Method Room Air Weight: 213 lb 6.519 oz Body Mass Index (BMI) 30.5 Intake & Output: Intake and Output for Last 24 Hours 12/11/24 12/12/24 12/13/24 23:59 23:59 23:59 Intake Total 0 / 0 Output Total 1750 / 1750 1050 / 1050 Balance -1750 / -1750 -1050 / -1050 Lab / Micro Data Attestation: I reviewed the patient's lab results. 12/13/24 06:43 12/13/24 06:43 Labs: Laboratory Results - last 24 hr 12/12/24 10:30: WBC 8.8, RBC 5.18, Hgb 15.5, Hct 46.1, MCV 89.0, MCH 29.9, MCHC 33.6, RDW Std Deviation 43.8, RDW Coeff of Christiano 13.5, Plt Count 198, MPV 9.7, Immature Gran % (Auto) 0.200, Neut % (Auto) 77.1 H, Lymph % (Auto) 14.3 L, Sunflower % (Auto) 7.1, Eos % (Auto) 1.0, Baso % (Auto) 0.3, Absolute Neuts (auto) 6.8, Absolute Lymphs (auto) 1.26, Nucleated RBC % 0, D-Dimer Quant (PE/DVT) 0.48, Sodium 134, Potassium 4.1, Chloride 104, Carbon Dioxide 19.6 L, Anion Gap 11, BUN 15, Creatinine 1.13, Estim Creat Clear Calc 53.66, Est GFR (MDRD) Non-Af 63, BUN/Creatinine Ratio 13.2, Glucose 224 H, Calcium 8.2, Troponin T High Sens 252 H*, NT pro BNP II 2149 H 12/12/24 12:28: Troponin T Hi Sens 2 Hr 244 H* 12/12/24 14:50: Troponin T Hi Sens 4Hr 275 H* 12/12/24 17:54: POC Glucose 173 H 12/12/24 18:43: Troponin T High Sens 312 H* D 12/12/24 20:26: POC Glucose 318 H 12/12/24 20:49: Troponin T High Sens 308 H* 12/13/24 05:59: POC Glucose 114 H 12/13/24 06:43: WBC 6.0, RBC 5.09, Hgb 15.3, Hct 43.8, MCV 86.1, MCH 30.1, MCHC 34.9, RDW Std Deviation 42.1, RDW Coeff of Christiano 13.5, Plt Count 212, MPV 9.8, Immature Gran % (Auto) 0.200, Neut % (Auto) 53.6, Lymph % (Auto) 30.2, Sunflower % (Auto) 13.1 H, Eos % (Auto) 2.2, Baso % (Auto) 0.7, Absolute Neuts (auto) 3.2, Absolute Lymphs (auto) 1.82, Nucleated RBC % 0, Sodium 138, Potassium 3.4, Chloride 104, Carbon Dioxide 21.3, Anion Gap 12, BUN 12, Creatinine 1.06, Estim Creat Clear Calc 56.22, Est GFR (MDRD) Non-Af 68, BUN/Creatinine Ratio 11.4, Glucose 103 H, Calcium 8.4, Total Bilirubin 0.80, Direct Bilirubin 0.38 H, AST 23, ALT 16, Alkaline Phosphatase 105, Total Protein 5.6 L, Albumin 3.3 L, Globulin 2.3, Triglycerides 78, Cholesterol 96, LDL Cholesterol, Calc 55, VLDL Cholesterol 16, HDL Cholesterol 25 L, Cholesterol/HDL Ratio 3.81, TSH 1.980 Micro: Microbiology 12/12/24 17:15 Mucosa - Nasopharyngeal Respiratory Panel (PCR) - Final 12/12/24 17:15 Mucosa - Nasopharyngeal SARS-CoV-2, Influenza & RSV (PCR) - Final Rhythm Strip Rhythm Strip: Sinus Rhythm Rate: 60 Ectopy: None Cardiology Labs/Tests 12/12/24 10:30: WBC 8.8, RBC 5.18, Hgb 15.5, Hct 46.1, MCV 89.0, MCH 29.9, MCHC 33.6, Plt Count 198, MPV 9.7, Immature Gran % (Auto) 0.200, Neut % (Auto) 77.1 H, Lymph % (Auto) 14.3 L, Sunflower % (Auto) 7.1, Eos % (Auto) 1.0, Baso % (Auto) 0.3, Absolute Neuts (auto) 6.8, Nucleated RBC % 0, D-Dimer Quant (PE/DVT) 0.48, Sodium 134, Potassium 4.1, Chloride 104, Carbon Dioxide 19.6 L, Anion Gap 11, BUN 15, Creatinine 1.13, Est GFR (MDRD) Non-Af 63, BUN/Creatinine Ratio 13.2, Glucose 224 H, Calcium 8.2 12/13/24 06:43: WBC 6.0, RBC 5.09, Hgb 15.3, Hct 43.8, MCV 86.1, MCH 30.1, MCHC 34.9, Plt Count 212, MPV 9.8, Immature Gran % (Auto) 0.200, Neut % (Auto) 53.6, Lymph % (Auto) 30.2, Sunflower % (Auto) 13.1 H, Eos % (Auto) 2.2, Baso % (Auto) 0.7, Absolute Neuts (auto) 3.2, Nucleated RBC % 0, Sodium 138, Potassium 3.4, Chloride 104, Carbon Dioxide 21.3, Anion Gap 12, BUN 12, Creatinine 1.06, Est GFR (MDRD) Non-Af 68, BUN/Creatinine Ratio 11.4, Glucose 103 H, Calcium 8.4, Total Bilirubin 0.80, Direct Bilirubin 0.38 H, Triglycerides 78, Cholesterol 96, VLDL Cholesterol 16, HDL Cholesterol 25 L, Cholesterol/HDL Ratio 3.81 Rhythm: EKG: ECHO: Stress Test: Cardiac Cath: PCI: CT Surgery: Holter monitor: EPS: PPM: CXR: Chest CT Scan: Radiography Diagnostic Testing: Radiology Impression Chest X-Ray 12/12/24 10:35 IMPRESSION: 1. Mild cardiomegaly with small LEFT and suspected trace RIGHT pleural effusions. 2. Adjacent mild bibasilar airspace disease may reflect compressive atelectasis versus pneumonia. Attention on below recommended outpatient imaging to ensure resolution. 3. Mild hilar prominence could reflect pulmonary arterial enlargement however recommend outpatient CT chest with contrast as hilar lymphadenopathy may appear similarly, unless outside imaging is available to establish long-term stability or further delineate. 4. Additional description as above. Reading Location: [facility] Chest CTA 12/12/24 13:19 IMPRESSION: 1. Somewhat motion limited exam. No central or definite pulmonary embolism identified allowing for limitations. 2. Small/moderate bilateral pleural effusions. Overall heart size is top-normal with relative dilatation of the LEFT atrium. 3. Mild mediastinal lymphadenopathy, nonspecific and potentially reactive in the absence of known malignancy. Correlate with medical history and follow-up as indicated. 4. Additional description as above. Reading Location: [facility]
--- NOTE | 2024-12-13 09:22 | CASEMGMT ---
Attempted assessment, pt off the floor.
[2024-12-13] MEDS: Aspirin E.C. 81 MG Tablet PO (11:49)
[2024-12-13 11:50] VITALS: PULSE 84; O2SAT 95
[2024-12-13] MEDS: Potassium Chloride Oral Tablet 10 MEQ PO (11:50)
[2024-12-13] MEDS: Metoprolol(XL)Succ 50 MG Tablet PO (11:50)
[2024-12-13] MEDS: Furosemide 40 MG/4 ML Vial IV (11:50)
[2024-12-13] MEDS: Isosorbide Mononitrate 60 MG Tablet PO (11:50)
[2024-12-13] MEDS: Clopidogrel Bisulfate 75 MG Tablet PO (11:50)
[2024-12-13] MEDS: Lisinopril 5 MG Tablet PO (11:51)
[2024-12-13 11:55] VITALS: BP 157/76; PULSE 71; RESP 16; TEMP 36.6; O2SAT 100
--- NOTE | 2024-12-13 11:59 | CASEMGMT ---
RN?CM?TEST DEVELOPMENT ENGINEER?CM?to room to meet with patient for initial transition planning/care coordination?assessment.?RN?CM?introduced self and role at [facility].? Pt voices understanding and consents to?assessment?at this time.? Pt resting in bed in no distress at this time.?W[place]ITA. Cousin, Lexa, and Lexa's @ bedside. (Les clarifies that pt calls them his niece and nephew, but Lexa is actually his cousin). Pt is A/O at this time and answers all questions appropriately.?? Care providers, pharmacy, and demographics verified/updated at this time. Strata: 2 PCP: Dr Zamora Specialists: GOLD/Cardiology, Dr Bolton/podiatry Preferred [facility]acy: [facility] Insurance: Hola NORRIS Prescription Benefit:?yes LNOK: Friend/POALeonardo. Cousin, Lexa Living Arrangements: Lives alone in one-story home w/no steps to enter. Independent w/ADL's, IADL's, and manages his own medications and appts. Transportation:?Pt states drives self and states no transportation concerns at this time.?Les or his will take him home @ dc. DME:? States has the following DME:?2 canes, walker, medical alert, functioning glucometer w/sufficient supplies, and states has all needed insulin, supplies, and meds. No home O2. Pt and family aware home O2 amb testing will be completed and questions answered. If pt qualifies for home o2, they prefer [employer] for DME co. Pt does not have a pulse ox and this was recommended to get. Made aware of locations where this could be purchased. ?Pt states no need for further DME at this time.? HHC/SNF: No hx of SNF. Has had [facility] HHC in the past. Pt wishes to return home and states has no concerns with going home at time of discharge.?Pt declines wanting any HHC or OP therapy. Pt and cousins voice no concerns/needs at this time.? Advised them to ask for?CM?if any further questions/concerns/needs arise.? They voice understanding. PLAN:??Home. Nikolas BSN?RN?CM
[2024-12-13] MEDS: Insulin Glargine-YFGN 100 UNIT/ML Pen 15 UNIT SC (12:23)
--- NOTE | 2024-12-13 12:47 | STRESSREP ---
Stress Test Report Date: 12/13/2024 Procedure: Pharmacologic stress nuclear imaging study Indications: CAD Consent: Per the patient Procedure: The patient underwent pharmacologic (Regadenoson 0.4mg ) evaluation with a peak heart rate of 87 beats per minute (65%predicted maximal heart rate) and a peak blood pressure of 152/84 mmHg. The baseline ECG demonstrated sinus rhythm with nonspecific ST changes. The peak pharmacologic ECG was nondiagnostic secondary to baseline abnormality. Occasional PACs and PVCs noted. There was no complaint of chest discomfort during pharmacologic infusion or recovery. The patient was injected with 13.1 millicuries of technetium 99m Cardiolite and subsequently rest SPECT Cardiolite nuclear imaging was obtained in the horizontal long, vertical long, and short axis views. The patient underwent pharmacologic (Regadenoson) evaluation. The patient was injected with 40.8 millicuries of technetium 99m Cardiolite and subsequently stress SPECT Cardiolite nuclear imaging was obtained in the horizontal long, vertical long, and short axis views. A gated Cardiolite study at peak stress was obtained. The examination was stopped secondary to completion of protocol. Rest and stress SPECT Cardiolite nuclear imaging status post realignment, normalization, and attenuation correction demonstrate resting inferior perfusion defect compatible with prior infarct with moderate christiano-infarct ischemia. Inferior hypokinesis noted on gated images. The reported LVEF is 63%. Impression: 1. Pharmacologic (Regadenoson) evaluation 2. Peak pharmacologic ECG with no diagnostic changes. 3. Occasional PVCs and PACs noted. 5. 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 6. The gated Cardiolite study reports an LVEF of 63%. This note was generated with NextBioation software. It may contain incorrect words, spelling, and punctuation that were not noted in checking the note before signing.
[2024-12-13 12:50] LABS: Bedside Glucose 133 mg/dL (74-106)
--- NOTE | 2024-12-13 13:56 | DS.PCM_ITS ---
Providers Date of Admission: 12/12/24 Primary Care Physician: Dr. Vipul Zamora, DO Consultations 12/12/24 19:53 Consult: Cardiology Routine Consulting Provider: Blair Falk Reason for Consult: elevated troponin EMERGENT Consult: No MD Notified: Yes Date Notified: 12/12/24 Time Notified: 19:53 Method of Notification: Verbal Reason For Visit: SHORTNESS OF BREATH, FLUID OVERLOAD Diagnosis Discharge Diagnosis (1) (HFpEF) heart failure with preserved ejection fraction: Status: Acute Code(s): I50.30 - Unspecified diastolic (congestive) heart failure Plan: acute pulmonary vascular congestion and pleural effusions. IV furosemide echo shows an EF 65%. Stage 1 DD. Mildly enlarged LA. RVSP 38mmHG. on metoprolol succinate, lisinopril Will discharge with furosemide 40/d. Fluid restrict. (2) NSTEMI, initial episode of care: Status: Acute Code(s): I21.4 - Non-ST elevation (NSTEMI) myocardial infarction Plan: Secondary to demand ischemia Cards consult. on ASA, clopidogrel, isosorbide, received a 1x dose of 90mg of enoxaparin prior history of CAD and PCI. DW Dr. Falk, stress limited due to GI activity. Chronic changes. No additional work up. Plan Chronic conditions: * DM2: Glargine and SSI. change a1c * HTN: stable. VTE prophylaxis: enoxaparin Medications at Discharge Home Medications blood sugar diagnostic (FreeStyle Lite Strips) #10 ea 05/04/22 pen needle, diabetic 31 gauge x 15/64 #50 ea 05/04/22 glipizide 5 mg tablet 5 mg PO DAILY cholesterol 11/24/22 nitroglycerin 0.4 mg sublingual tablet 0.4 mg sublingual Q5-15M PRN CHEST PAIN #25 tabs 02/10/23 clopidogrel 75 mg tablet 75 mg PO QDAY BLOOD THINNER #90 tabs 12/19/23 isosorbide mononitrate 60 mg tablet,extended release 24 hr 60 mg PO QDAY BP #90 tabs 01/04/24 atorvastatin 40 mg tablet 40 mg PO QDAY CHOLESTEROL #90 tabs 02/13/24 metoprolol succinate 50 mg tablet,extended release 24 hr 50 mg PO QDAY BP #90 tabs 02/22/24 potassium chloride 8 mEq capsule,extended release 8 meq PO DAILY #90 caps 02/22/24 aspirin 81 mg tablet,delayed release (Adult Aspirin Regimen) 81 mg PO QDAY anticoagulant 10/16/24 insulin glargine 100 unit/mL (3 mL) subcutaneous pen (Lantus Solostar U-100 Insulin) 20 unit subcut QAM Dibetis 10/16/24 lisinopril 5 mg tablet 5 mg PO QDAY #90 tabs 10/16/24 furosemide 40 mg tablet 40 mg PO DAILY #30 tabs 12/13/24 Hospital Course Operations None Procedures 2-D Echocardiogram and Stress test Summary of Care Provided Minutes Spent on Discharge: 32 Hospital Course: Patient presents with shortness of breath. CT showed pulmonary vascular congestion and pleural effusions. he was started on IV furosemide. Additionally, his troponins were elevated. Stress test showed chronic changes. DW Dr. Falk, no acute recommendations. Weight / BMI Weight Weight: 96.8 kg Body Mass Index (BMI) 30.5 ABG / Lab / Microbiology Data 12/13/24 06:43 12/13/24 06:43 Laboratory: Laboratory Results - last 24 hr 12/12/24 14:50: Troponin T Hi Sens 4Hr 275 H* 12/12/24 17:54: POC Glucose 173 H 12/12/24 18:43: Troponin T High Sens 312 H* D 12/12/24 20:26: POC Glucose 318 H 12/12/24 20:49: Troponin T High Sens 308 H* 12/13/24 05:59: POC Glucose 114 H 12/13/24 06:43: WBC 6.0, RBC 5.09, Hgb 15.3, Hct 43.8, MCV 86.1, MCH 30.1, MCHC 34.9, RDW Std Deviation 42.1, RDW Coeff of Christiano 13.5, Plt Count 212, MPV 9.8, Immature Gran % (Auto) 0.200, Neut % (Auto) 53.6, Lymph % (Auto) 30.2, [place] % (Auto) 13.1 H, Eos % (Auto) 2.2, Baso % (Auto) 0.7, Absolute Neuts (auto) 3.2, Absolute Lymphs (auto) 1.82, Nucleated RBC % 0, Sodium 138, Potassium 3.4, Chloride 104, Carbon Dioxide 21.3, Anion Gap 12, BUN 12, Creatinine 1.06, Estim Creat Clear Calc 56.22, Est GFR (MDRD) Non-Af 68, BUN/Creatinine Ratio 11.4, G lucose 103 H, Calcium 8.4, Total Bilirubin 0.80, Direct Bilirubin 0.38 H, AST 23, ALT 16, Alkaline Phosphatase 105, Total Protein 5.6 L, Albumin 3.3 L, Globulin 2.3, Triglycerides 78, Cholesterol 96, LDL Cholesterol, Calc 55, VLDL Cholesterol 16, HDL Cholesterol 25 L, Cholesterol/HDL Ratio 3.81, TSH 1.980 12/13/24 12:16: POC Glucose 133 H Microbiology: Microbiology 12/12/24 17:15 Mucosa - Nasopharyngeal Respiratory Panel (PCR) - Final 12/12/24 17:15 Mucosa - Nasopharyngeal SARS-CoV-2, Influenza & RSV (PCR) - Final Radiography Diagnostic Testing: Radiology Impression Chest CTA 12/12/24 13:19 IMPRESSION: 1. Somewhat motion limited exam. No central or definite pulmonary embolism identified allowing for limitations. 2. Small/moderate bilateral pleural effusions. Overall heart size is top-normal with relative dilatation of the LEFT atrium. 3. Mild mediastinal lymphadenopathy, nonspecific and potentially reactive in the absence of known malignancy. Correlate with medical history and follow-up as indicated. 4. Additional description as above. Reading Location: [id number] Echocardiogram 12/12/24 16:52 Interpretation Summary Moderate concentric left ventricular hypertrophy. The LV systolic function is normal. EF is 65 %. Stage 1 diastolic dysfunction. The left atrium is mildly enlarged. Mild-Moderate (1-2+) mitral valve insufficiency. Right ventricular systolic pressure estimated to be 39 mmHg. Moderately calcified aortic valve with restricted leaflet motion. Aortic valve area 1.9 cm?? by planimetry. Mean peak gradient 6 mmHg. Mild aortic valve regurgitation. Ordering Physician: Cinda De Dios Referring Physician: KRISTY YE Performed By: Carli Kaplan RCS D/C Instructions Discharge Diet: Low fat / Low cholesterol, 2200 Calorie Control Diet and - (1.5 liters of fluid/d) DC O2, CPAP, BIPAP Needs Home O2 Discharge instructions: No Meaningful Use Info Meaningful Use Meaningful Use Diagnoses (Choose all that apply): CHF CHF MARLINE/ARB ordered at discharge?: Yes Documented LVEF (%): 65 Ischemic Stroke Statin Dosing Therapy Reference: STATIN DOSE THERAPY REFERENCE: * Patients > 75 years receive moderate or high dose statin therapy. * Patients 75 years or YOUNGER should receive HIGH intensity statin dose unless contraindicated. You will be required to document reason for non-treatment if statin daily dose does not meet guidelines. HIGH DOSE STATIN THERAPY DAILY Atorvastatin > than or = to 40 mg Rosuvastatin > than or = to 20 mg Amlodipine + Atorvastatin > than or = to 2.5/40 mg Ezetimibe + Simvastatin 10/80 mg Simvastatin 80mg Discharge Plan Admission Admit Date/Time: 12/12/24 15:50 Primary Reason for Your Visit: heart failure Attending Provider: Dino Pan Primary Care Provider: Vipul Zamora Consulting Providers: Cinda De Dios; Blair Falk Instructions Patient Instructions: Heart Failure Meds, Heart Failure Make Changes Diet, Heart Failure Dc, Heart Failure Care, Heart Failure and Physical Activity Discharge Orders/Prescriptions Prescriptions: New furosemide 40 mg tablet 40 mg PO DAILY Qty: 30 0RF Continued insulin glargine [Lantus Solostar U-100 Insulin] 100 unit/mL (3 mL) insulin pen 20 unit subcut QAM (DME) FreeStyle Lite Strips Strip See Rx Instructions .ROUTE .MEDSUPPLY Qty: 10 Patient Comments: USE STRIP TO CHECK GLUCOSE ONCE DAILY Rx Instructions: As directed (DME) pen needle, diabetic 31 gauge x 15/64 needle See Rx Instructions .ROUTE .MEDSUPPLY Qty: 50 Patient Comments: USE ONCE DAILY Rx Instructions: As directed glipizide 5 mg tablet 5 mg PO DAILY lisinopril 5 mg tablet 5 mg PO QDAY Qty: 90 3RF aspirin [Adult Aspirin Regimen] 81 mg tablet,delayed release (DR/EC) 81 mg PO QDAY nitroglycerin 0.4 mg tablet, sublingual 0.4 mg SUBLINGUAL Q5-15M PRN (Reason: CHEST PAIN) Qty: 25 1RF clopidogrel 75 mg tablet 75 mg PO QDAY Qty: 90 3RF isosorbide mononitrate 60 mg tablet extended release 24 hr 60 mg PO QDAY Qty: 90 3RF atorvastatin 40 mg tablet 40 mg PO QDAY Qty: 90 3RF metoprolol succinate 50 mg tablet extended release 24 hr 50 mg PO QDAY Qty: 90 3RF potassium chloride 8 mEq capsule, extended release 8 meq PO DAILY Qty: 90 3RF Referrals / Follow Up: [facility] [Provider Group] - Within 1 Month Vipul Zamora DO [Primary Care Provider] - Within 2 Weeks Disposition Disposition (needs filled in before D/C Order can be placed): Home, Self Care Charges/Coding Visit Charges Inpatient E&M: 05123 Disch Hosp >30min
[2024-12-13 16:27] VITALS: BP 107/91; PULSE 78; RESP 17; TEMP 36.4; O2SAT 97
== END 2024-12-13 16:42 | disposition home or self-care (01) | DRG 280 ==
LOC: ED 15:37 → PCU 15:56
PROVIDERS: Admitting Provider Internal Medicine; Emergency Provider Emergency Medicine; PCP Family Medicine
DX: I11.0 Hypertensive heart disease with heart failure (principal); I21.A1 Myocardial infarction type 2; I50.31 Acute diastolic (congestive) heart failure; E11.9 Type 2 diabetes mellitus without complications; Z79.4 Long term (current) use of insulin; E78.00 Pure hypercholesterolemia, unspecified; I25.10 Atherosclerotic heart disease of native coronary artery without angina pectoris; I25.2 Old myocardial infarction; Z95.5 Presence of coronary angioplasty implant and graft; Z79.02 Long term (current) use of antithrombotics/antiplatelets; Z79.82 Long term (current) use of aspirin; Z79.84 Long term (current) use of oral hypoglycemic drugs; Z79.899 Other long term (current) drug therapy
CPT/HCPCS: 36415; 71046; 71275; 78452; 80048; 80061; 80076; 82962; 83880; 84443; 84484; 85025; 85379; 87631; 87633; 93005; 93017; 93306; 94668; 99285; A9500; Q9957; Q9967; A4216; C8929; J1940; J2785

== ENCOUNTER → 2025-01-11 | Outpatient (CLI) | payer MEDICARE, OTHER, SELFPAY ==
--- NOTE | 2025-01-11 13:38 | CDU_ITS ---
Reason For Study Reason For Study: Carotid stenosis Rt. Velocities/BP Lt. Velocities/BP Prox CCA 51.3/6 cm/sec. Prox CCA 70/4.6 cm/sec. Mid CCA 70.2/6 cm/sec. Mid CCA 125.6/6.5 cm/sec. Dist CCA 109.7/7.7 cm/sec. Dist CCA 86.3/6.5 cm/sec. Prox ICA 58.6/6.9 cm/sec. Prox ICA 92.5/11.4 cm/sec. Mid ICA 67.4/11.3 cm/sec. Mid ICA 139/16 cm/sec. Dist ICA 66.3/9.1 cm/sec. Dist ICA 69.1/7.7 cm/sec. Rt. ICA/CCA = 0.96. Lt. ICA/CCA = 1.11. Prox ECA 96.1 cm/sec. Prox ECA 124.7 cm/sec. Rt. Vert. 32.5/6.4 cm/sec. Lt. Vert. 37.1/6 cm/sec. Right Extracranial There is heterogeneous, irregular atherosclerotic plaque noted in the right common carotid artery. There is homogeneous, smooth atherosclerotic plaque noted in the right internal carotid artery. There is intimal thickening but no significant atherosclerotic plaque noted in the right external carotid artery. Antegrade flow is noted in the right vertebral artery. Left Extracranial There is heterogeneous, irregular atherosclerotic plaque noted in the left common carotid artery. There is heterogeneous, irregular atherosclerotic plaque noted in the left internal carotid artery. There is intimal thickening but no significant atherosclerotic plaque noted in the left external carotid artery. Antegrade flow is noted in the left vertebral artery. Procedure Carotid Duplex [id number]. This is a Carotid Duplex examination using B-mode, color flow and specral Doppler. Exam performed in department. VL/Carotid Duplex Ultrasound Interpretation Summary Mild (<50%) stenosis right extracranial internal carotid. Moderate (50-69%) stenosis left extracranial internal carotid. Patent and antegrade vertebrals bilaterally. Ordering Physician: Candice Barker Referring Physician: Vipul Zamora Performed By: Iza Viera RVT
== END | disposition home or self-care (01) ==
LOC: CVS 13:38
PROVIDERS: PCP Family Medicine; Referring Provider Internal Medicine Cardiovascular Disease; Visit Provider Internal Medicine Cardiovascular Disease
DX: I65.21 Occlusion and stenosis of right carotid artery (principal)
CPT/HCPCS: 93880